=== PATIENT | male | born 1940 | race Caucasian/White ===

== ENCOUNTER 2020-01-01 15:26 | Outpatient (CLI) | payer MEDICARE, SELFPAY ==
--- NOTE | 2020-01-01 | XR_ITS ---
WS: [id number] LEFT ANKLE: 2 VIEW(S) TECHNIQUE: AP and lateral. HISTORY: LEFT ANKLE PAIN COMPARISON: None available. Normal anatomic alignment with no fracture or dislocation. Well-corticated osseous densities at the medial malleolus from an old injury. No osteochondral lesion s. Small calcaneal spur. Enthesopathy at the Achilles tendon attachment. Vascular calcifications in the posterior and anterior tibial arteries. No soft tissue abnormality. XR/XR ankle LT 2V [id number] IMPRESSION: 1. Well-corticated osseous densities at the medial malleolus from old injury. 2. No acute fracture. 3. Small calcaneal spur. 4. Peripheral arterial calcifications.
== END 2020-01-01 15:27 | disposition home or self-care (01) ==
LOC: RADOUTREAD 01-02 09:47
PROVIDERS: Family Provider Internal Medicine; PCP Internal Medicine; Visit Provider Physician Assistant
DX: Z76.89 Persons encountering health services in other specified circumstances (principal)

== ENCOUNTER 2021-02-08 12:32 | Inpatient (IN) | payer MEDICARE, SELFPAY ==
[2021-02-08] VITALS (65 sets, daily range): BP systolic 73–142; BP diastolic 40–96; PULSE 62–110; RESP 18–49; TEMP 36.4–38.6; O2SAT 87–99
--- NOTE | 2021-02-08 12:58 | CT_ITS ---
WS: [id number] CT scan of the head, 02/08/2021 Clinical Data: confusion Comparison: CT head, 01/29/2011. DLP: 981.[address] scans at [facility] use at least one of these dose optimization techniques: automat ed exposure control; mA and/or kV adjustment per patient size (includes targeted exams where dose is matched to clinical indication); or iterative reconstruction. Findings: The ventricular system is mildly dilated without shift. No recent infarct or hemorrhage is seen. Smal l old lacunar infarcts are seen. There are no abnormal intracerebral masses. The cerebellum and brain stem are not remarkable. Bony windows of the skull and skull base show no fractures or erosions. The mastoid air cells, commercial internship al auditory canals, sella turcica, intraorbital contents, and paranasal sinuses are unremarkable. CT/CT head wo con* [id number] Impression: Mild cerebral atrophy and lacunar infarcts.
--- NOTE | 2021-02-08 12:58 | XR_ITS ---
WS: [id number] Portable AP upright chest, 02/08/2021 Clinical Data: dyspnea Comparison: PA and lateral chest, 09/01/2018. Findings: No nodules, masses or effusions are seen. The heart is enlarged. The pulmonary vascularity is not increased. No pneumonia or pneumothorax is seen. The aortic arch is minimally tortuous. Monito r leads are on the chest wall. XR/XR chest 1V portable [id number] Impression: Atherosclerosis and cardiomegaly.
--- NOTE | 2021-02-08 13:07 | ECG_ITS ---
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1940 Requested By: Can Dixon Order Number: [id number] Reva MD: JAVIER OSEI Measurements Intervals [place] Rate: 61 P: 19 WI: 219 QRS: -31 QRSD: 127 T: 6 QT: 461 QTc: 467 Interpretive Statements SINUS RHYTHM WITH FIRST DEGREE AV BLOCK WITH OCCASIONAL VENTRICULAR PREMATURE COMPLEXES LEFT AXIS DEVIATION [QRS AXIS < -30] POSSIBLE ANTERIOR MYOCARDIAL INFARCTION , PROBABLY OLD [30 ms Q WAVE IN V3/V4, OR R < 0.2 mV IN V4] Compared to ECG 04/27/2018 08:53:54 First degree AV block now present Left-axis deviation now present Myocardial infarct finding still present Electronically Signed On 02-08-2021 19:23:50 ELECTRO MECHANICAL ASSEMBLER by JAVIER OSEI [id number]
[2021-02-08] MEDS: ondansetron 2 mg/ML SDV 2 mL 4 MG IVP (13:18)
[2021-02-08] MEDS: sodium chloride 0.9% 1,000 ML 999 ML IV ×2 (13:18→16:27)
[2021-02-08 13:39] LABS: Basophils # 0.1 10^3/uL (0.0-0.1); Basophils % 0.9 %; Eosinophils % 0.3 %; Hemoglobin 11.7 g/dL (11.7-16.6); Lymphocytes # 0.4 10^3/uL (0.8-4.8); Lymphocytes % 6.1 %; Mean Corpuscular HGB Conc 33.4 g/dL (30.0-36.0); Mean Corpuscular Hemoglobin 30.9 pg (28.0-34.0); Mean Corpuscular Volume 92.3 fL (80-94); Mean Platelet Volume 10.8 fL (7.4-10.4); Monocytes # 0.1 10^3/uL (0.2-0.9); Monocytes % 1.6 %; Neutrophils # 5.75 10^3/uL (1.8-7.7); Neutrophils % 90.3 %; Nucleated Red Blood Cells % 0 %; Platelet Count 161 10^3/cmm (130-400); Red Blood Count 3.79 10^6/uL (4.1-5.3); Red Cell Distribution Width 13.3 % (12.1-15.1); White Blood Count 6.4 10^3/uL (4.0-10.0)
--- NOTE | 2021-02-08 13:58 | XR_ITS ---
WS: [id number] Right wrist, AP and lateral views, 02/08/2021 Clinical Data: wrist fx Comparison: None. Findings: No fractures or dislocations are seen. The carpal bones are intact. There is no soft tissue swelling. The distal radius and ulna are not remarkable. There are small calcifications in the maria of the vessels. XR/XR wrist RT 2V [id number] Impression: Negative right wrist.
[2021-02-08 14:02] LABS: Lactate (Lactic Acid level) 4.5 mmol/L (0.5-2.2)
[2021-02-08 14:03] LABS: Troponin(5th) Baseline 54 ng/L (0-15)
[2021-02-08 14:13] LABS: Slide Review Slide Review Perform
--- NOTE | 2021-02-08 14:14 | PC.NURSE ---
ok to CT per
[2021-02-08 14:38] LABS: D Dimer 4.65 ug/mIFEU (0-0.59)
--- NOTE | 2021-02-08 15:07 | ECG_ITS ---
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: : 1940 Requested By: Can Dixon Order Number: [id number] Reva MD: JAVIER OSEI Measurements Intervals [place] Rate: 72 P: 37 LA: 235 QRS: -27 QRSD: 124 T: 19 QT: 429 QTc: 470 Interpretive Statements SINUS RHYTHM WITH FIRST DEGREE AV BLOCK WITH FREQUENT VENTRICULAR PREMATURE COMPLEXES ANTEROSEPTAL MYOCARDIAL INFARCTION , PROBABLY OLD [40+ ms Q WAVE IN V1-V4] Compared to ECG 02/08/2021 13:17:18 Left-axis deviation no longer present Myocardial infarct finding still present Electronically Signed On 02-08-2021 19:25:57 ROCK DUSTER by JAVIER OSEI [email or web address] regional health centerArcos Technologiesuniversity [email or web address] [facility].[employer]/store/[id number]
[2021-02-08 15:08] LABS: Alanine Aminotransferase 20 U/L (0-41); Albumin Level 3.2 g/dL (3.5-5.2); Alkaline Phosphatase 78 IU/L (40-130); Anion Gap 21.4 (5-19); Aspartate Amino Transferase 32 U/L (0-40); Blood Urea Nitrogen 55 mg/dL (8-23); Calcium 7.4 mg/dL (8.5-10.5); Carbon Dioxide 18 mmol/L (22-29); Chloride 93 mmol/L (98-107); Creatine Phosphokinase 462 U/L (39-308); Globulin 2.6 g/dL (1.3-4.6); Glucose 225 mg/dL (65-115); NT Pro B Type Natriuretic Pept 3988 pg/mL (0-450); Osmolality Calculated 288 mOsm/kg (285-295); Potassium 4.4 mmol/L (3.5-5.1); Sodium 128 mmol/L (136-145); Total Protein 5.8 g/dL (6.6-8.7)
--- NOTE | 2021-02-08 15:11 | CT_ITS ---
WS: [id number] CT CHEST, ABDOMEN, AND PELVIS TECHNIQUE: Noncontrast CT of the chest, abdomen, and pelvis with coronal and sagittal reformatted amy ges. CLINICAL INFORMATION: cause of sepsis? h/o n/v/d COMPARISON: None. DLP: 1762.[address] scans at [facility] use at least one of these dose optimization techniques: automat ed exposure control; mA and/or kV adjustment per patient size (includes targeted exams where dose is matched to clinical indication); or iterative reconstruction. CT CHEST: Moderate chronic emphysematous changes. No acute pulmonary infiltrates. Subsegmental atelectasis in t he lung bases. No focal consolidation pleural fluid. A few tiny subcentimeter noncalcified nodules ar e unchanged. Trace pleural thickening/pleural fluid. Aortic calcification. No mediastinal or hilar ly mphadenopathy. No axillary lymphadenopathy. Small esophageal hiatal hernia. CT ABDOMEN AND PELVIS: Noncontrast liver is normal. Normal noncontrast gallbladder. Splenic granulomas. Fatty atrophy of the pancreas. Small esophageal hiatal hernia. Adrenal glands are normal. Bilateral perinephric edema can be seen with renal insufficiency. No hydronephrosis. No obstructing renal or ureteral calculi. Enlarged prostate measuring 5.2 CM. Sigmoid diverticulosis. No evidence of acute diverticulitis. No e vidence of high-grade small or large bowel obstruction. Aortic calcification. Normal caliber abdomina l aorta. Tiny fat-containing umbilical hernia. Mild spondylitic changes thoracic and lumbar spine. CT/CT chest abd pel wo con IMPRESSION: 1. No acute pulmonary infiltrates. Lungs are well aerated. Subsegmental atelec tasis in the lung bases. 2. No free fluid in the abdomen or pelvis. 3. Perinephric edema can be seen with renal insufficiency. 4. No free fluid or fluid collections in the abdomen or pelvis. 5. Sigmoid diverticulosis. No evidence of acute diverticulitis. 6. No acute findings in the chest abdomen or pelvis.
[2021-02-08] MEDS: levofloxacin-dextrose 5 % 750 MG/150 ML PREMIX 100 MG IV (15:13)
--- NOTE | 2021-02-08 15:41 | PC.NURSE ---
Dr. Bay here to see pt
--- NOTE | 2021-02-08 15:45 | PC.NURSE ---
back from CT
[2021-02-08 16:10] LABS: Troponin 5 2HR 48.95 ng/L (0-15)
[2021-02-08 16:11] LABS: Troponin 5 2HR Delta -5.05 ABS# (0-10)
[2021-02-08 16:23] LABS: SARS Covid-2 Antigen Negative (Negative)
--- NOTE | 2021-02-08 16:44 | W.ED.GENADLT ---
HPI - General Adult General: Chief complaint: General Medical Stated complaint: WEAK/SENT BY PCP Time Seen by Provider: 02/08/21 12:53 History of Present Illness: HPI narrative: The patient complains of nausea vomiting and diarrhea for the past 2 days. He says he has felt dehydrated and weak. He went to see his doctor today who recorded an exceptionally low blood pressure and sent him to the ED. Also yesterday in the past 2 days he fell at home and injured his right wrist. He was placed in a splint by his primary care doctor. On arrival blood pressure is 87/43 with a pulse of 64. He denies fevers or abdominal pain. He has a past medical history of A. fib, diabetes, CHF Severity: severe Associated symptoms: Reports nausea and vomiting; Deny chest pain, confusion, dyspnea, headache(s), rash or palpitations Review of Systems General: Reports: 10 or more systems reviewed and unremarkable except in HPI and below Const: Denies: fatigue Eyes: Denies: change in vision, blurry vision or eye redness ENMT: Denies: throat pain, swelling of lips/tongue, ear or mastoid pain or nasal congestion Card: Denies: chest pain, palpitations, irregular heart rhythm, edema, dyspnea on exertion or orthopnea Resp: Denies: dyspnea, productive cough or non-productive cough GI: Reports: nausea and vomiting : Denies: flank pain, urinary frequency or urinary urgency Musc: Denies: neck pain, back pain, extremity pain, joint pain, joint redness, limited range of motion or muscle weakness Skin/Breast: Denies: rash, pruritus, erythema, skin pain or skin tenderness Neuro: Denies: headache(s), numbness in extremities, weakness in extremities, sensory changes, difficulty walking, dizziness, confusion or Slurred speech present Psych: Denies: anxiety or depression Endo: Denies: polyuria All/Imm: Denies: urticaria, throat swelling or tongue swelling PFSH ED PFSH: Medical History (Updated 02/08/21 @ 16:52 by Can Dixon MD) Anticoagulation adequate with anticoagulant therapy Xarelto Atrial fibrillation CHF (congestive heart failure) Diabetes 1.5, managed as type 2 Dyslipidemia HTN (hypertension) Family History Father Diabetes Social History (Reviewed 08/28/20 @ 12:47 by BRYN Cristina Smoking and tobacco status: former smoker Household members: spouse Marital status: service: No Current occupational status: retired Physical Exam Const: COMMON NORMALS: average body habitus, patient oriented x3, alert and well nourished GENERAL APPEARANCE: cooperative, comfortable, well kempt, well developed, in distress, anxious and ill appearing ORIENTATION/CONSCIOUSNESS: Yes awake, Yes oriented to person, Yes oriented to place and Yes oriented to time OTHER: Mild confusion present. Hypotension HENMT: COMMON NORMALS: normocephalic, external ears normal and Normal external nose present HEAD & SCALP: normal to inspection and normocephalic NOSE: Normal external nose present EXTERNAL EAR: Yes external ears normal MOUTH: Normal oral and palatal mucosa present THROAT: posterior oropharynx normal Eye: COMMON NORMALS: Equal, round and reactive pupils present and EOMs intact bilaterally GENERAL EYE: appearance normal, both eyes and all related structures PUPIL: Yes Equal, round and reactive pupils present Neck/C-Spine: COMMON NORMALS: full ROM, no lymphadenopathy, no meningeal signs and no JVD GENERAL: Yes normal visual inspection Lymph: LYMPHATIC: no lymphadenopathy noted Chest: COMMONS NORMALS: normal inspection of the chest and normal palpation of entire chest wall Resp: COMMON NORMALS: normal respiratory effort, No retractions, No use of accessory muscles, clear to auscultation bilaterally and percussion normal EFFORT & INSPECTION: Yes able to speak in complete sentences AUSCULTATION: clear to auscultation bilaterally PERCUSSION: percussion normal Cardio: COMMON NORMALS: no JVD, regular rate, regular rhythm, S1 normal heart sound present, S2 normal heart sound present and Peripheral pulses 2+ throughout RATE: regular rate RHYTHM: regular rhythm HEART SOUNDS: S1 normal heart sound present and S2 normal heart sound present PERIPHERAL PULSES: Peripheral pulses 2+ throughout GI: COMMON NORMALS: Normal to inspection, nondistended, normoactive bowel sounds present, Soft to palpation, non-tender and no masses INSPECTION: Yes normal to inspection PALPATION: Yes Soft to palpation : COMMON NORMALS: Yes no CVA tenderness BLADDER/KIDNEY EXAM: Yes no CVA tenderness Back/Pelvis: COMMON NORMALS: no CVA tenderness, thoracic and lumbar spine normal to inspection, no thoracic nor lumbar tenderness and thoraco-lumbar ROM normal Extremity: COMMON NORMALS: normal to inspection, full ROM, capillary refill normal, no joint enlargement and no pedal edema GENERAL: Yes normal exam except as noted Neuro: COMMON NORMALS: patient oriented x3, CN's II-XII intact bilaterally, moves all extremities, no focal motor deficits, no sensory deficits noted and gait normal SENSORIUM/ORIENTATION: Yes alert, Yes oriented to person, Yes oriented to place and Yes oriented to time MENINGEAL SIGNS: Yes no meningeal signs Psych: COMMON NORMALS: mental status grossly normal, Normal thought process present, cooperative, normal affect and speech normal APPEARANCE: Yes well kempt ATTITUDE: Yes calm SPEECH: Yes normal speech THOUGHT PROCESS: Normal thought process present Skin: COMMON NORMALS: no rashes or lesions noted GENERAL SKIN EXAM: no rashes or lesions noted Course Vital Signs: Vital signs: Vital Signs Temperature 97.6 F 02/08/21 12:49 Pulse Rate 74 02/08/21 16:29 Respiratory Rate 18 02/08/21 16:29 Blood Pressure 105/47 02/08/21 16:29 Pulse Oximetry 98 02/08/21 16:29 MDM - General Adult MDM Narrative: Medical decision making narrative: Patient came to the ED severely hypotensive and in acute renal failure. Likely from the severe nausea and vomiting he said the past couple days. Initial lactic acid 4.5. He was given 2 L of fluid and started on Levophed with some improvement of his blood pressure. Discussed with Dr. Bay who accepts to the ICU. He was also given Primaxin IV for antibiotic coverage. CT abdomen pelvis shows no acute abnormalities he is stable for admission Lab Data: Labs: Lab Results 02/08/21 02/08/21 02/08/21 Range/Units 13:32 13:32 13:32 WBC 6.4 (4.0-10.0) 10^3/ uL RBC 3.79 L (4.1-5.3) 10^6/u L Hgb 11.7 (11.7-16.6) g/dL Hct 35.0 L (42.0-52.0) % MCV 92.3 (80-94) fL MCH 30.9 (28.0-34.0) pg MCHC 33.4 (30.0-36.0) g/dL RDW 13.3 (12.1-15.1) % Plt Count 161 (130-400) 10^3/c mm MPV 10.8 H (7.4-10.4) fL Neut % (Auto) 90.3 % Lymph % (Auto) 6.1 % [place] % (Auto) 1.6 % Eos % (Auto) 0.3 % Baso % (Auto) 0.9 % Neut # (Auto) 5.75 (1.8-7.7) 10^3/u L Lymph # (Auto) 0.4 L (0.8-4.8) 10^3/u L [place] # (Auto) 0.1 L (0.2-0.9) 10^3/u L Eos # (Auto) 0.0 (0.0-0.8) 10^3/u L Baso # (Auto) 0.1 (0.0-0.1) 10^3/u L Nucleated RBC % (a uto) 0 % Nucleated RBCs # 0.0 /100WBC D-Dimer (0-0.59) ug/mIFE U Sodium 128 L (136-145) mmol/L Potassium 4.4 (3.5-5.1) mmol/L Chloride 93 L (98-107) mmol/L Carbon Dioxide 18 L (22-29) mmol/L Anion Gap 21.4 H (5-19) BUN 55 H (8-23) mg/dL Creatinine 3.4 H (0.7-1.2) mg/dL GFR Calculation Not Reportable Glucose 225 H (65-115) mg/dL Calculated Osmolal ity 288 (285-295) mOsm/k g Lactate 4.5 H* (0.5-2.2) mmol/L Calcium 7.4 L (8.5-10.5) mg/dL Total Bilirubin 1.0 (0.15-1.2) mg/dL AST 32 (0-40) U/L ALT 20 (0-41) U/L Alkaline Phosphata se 78 (40-130) IU/L Creatine Kinase 462 H* (39-308) U/L Troponin T Baselin e (0-15) ng/L Troponin T 120 Min [place] (0-15) ng/L Delta Troponin T (0-10) ABS# NT-Pro-B Natriuret Pep 3988 H (0-450) pg/mL Total Protein 5.8 L (6.6-8.7) g/dL Albumin 3.2 L (3.5-5.2) g/dL Globulin 2.6 (1.3-4.6) g/dL SARS-CoV-2 Ag (Rap id) (Negative) 02/08/21 02/08/21 02/08/21 Range/Units 13:32 14:08 15:18 WBC (4.0-10.0) 10^3/ uL RBC (4.1-5.3) 10^6/u L Hgb (11.7-16.6) g/dL Hct (42.0-52.0) % MCV (80-94) fL MCH (28.0-34.0) pg MCHC (30.0-36.0) g/dL RDW (12.1-15.1) % Plt Count (130-400) 10^3/c mm MPV (7.4-10.4) fL Neut % (Auto) % Lymph % (Auto) % [place] % (Auto) % Eos % (Auto) % Baso % (Auto) % Neut # (Auto) (1.8-7.7) 10^3/u L Lymph # (Auto) (0.8-4.8) 10^3/u L [place] # (Auto) (0.2-0.9) 10^3/u L Eos # (Auto) (0.0-0.8) 10^3/u L Baso # (Auto) (0.0-0.1) 10^3/u L Nucleated RBC % (a uto) % Nucleated RBCs # /100WBC D-Dimer 4.65 H (0-0.59) ug/mIFE U Sodium (136-145) mmol/L Potassium (3.5-5.1) mmol/L Chloride (98-107) mmol/L Carbon Dioxide (22-29) mmol/L Anion Gap (5-19) BUN (8-23) mg/dL Creatinine (0.7-1.2) mg/dL GFR Calculation Glucose (65-115) mg/dL Calculated Osmolal ity (285-295) mOsm/k g Lactate (0.5-2.2) mmol/L Calcium (8.5-10.5) mg/dL Total Bilirubin (0.15-1.2) mg/dL AST (0-40) U/L ALT (0-41) U/L Alkaline Phosphata se (40-130) IU/L Creatine Kinase (39-308) U/L Troponin T Baselin e 54 H (0-15) ng/L Troponin T 120 Min [place] 48.95 H (0-15) ng/L Delta Troponin T -5.05 L (0-10) ABS# NT-Pro-B Natriuret Pep (0-450) pg/mL Total Protein (6.6-8.7) g/dL Albumin (3.5-5.2) g/dL Globulin (1.3-4.6) g/dL SARS-CoV-2 Ag (Rap id) (Negative) 02/08/21 Range/Units 15:50 WBC (4.0-10.0) 10^3/ uL RBC (4.1-5.3) 10^6/u L Hgb (11.7-16.6) g/dL Hct (42.0-52.0) % MCV (80-94) fL MCH (28.0-34.0) pg MCHC (30.0-36.0) g/dL RDW (12.1-15.1) % Plt Count (130-400) 10^3/c mm MPV (7.4-10.4) fL Neut % (Auto) % Lymph % (Auto) % [place] % (Auto) % Eos % (Auto) % Baso % (Auto) % Neut # (Auto) (1.8-7.7) 10^3/u L Lymph # (Auto) (0.8-4.8) 10^3/u L [place] # (Auto) (0.2-0.9) 10^3/u L Eos # (Auto) (0.0-0.8) 10^3/u L Baso # (Auto) (0.0-0.1) 10^3/u L Nucleated RBC % (a uto) % Nucleated RBCs # /100WBC D-Dimer (0-0.59) ug/mIFE U Sodium (136-145) mmol/L Potassium (3.5-5.1) mmol/L Chloride (98-107) mmol/L Carbon Dioxide (22-29) mmol/L Anion Gap (5-19) BUN (8-23) mg/dL Creatinine (0.7-1.2) mg/dL GFR Calculation Glucose (65-115) mg/dL Calculated Osmolal ity (285-295) mOsm/k g Lactate (0.5-2.2) mmol/L Calcium (8.5-10.5) mg/dL Total Bilirubin (0.15-1.2) mg/dL AST (0-40) U/L ALT (0-41) U/L Alkaline Phosphata se (40-130) IU/L Creatine Kinase (39-308) U/L Troponin T Baselin e (0-15) ng/L Troponin T 120 Min [place] (0-15) ng/L Delta Troponin T (0-10) ABS# NT-Pro-B Natriuret Pep (0-450) pg/mL Total Protein (6.6-8.7) g/dL Albumin (3.5-5.2) g/dL Globulin (1.3-4.6) g/dL SARS-CoV-2 Ag (Rap id) Negative (Negative) Discharge Plan Discharge Patient Disposition: Admitted As Inpatient Admit Provider: Claudia Bay Clinical Impression: Septic shock Condition: Stable Coding Level of Care Code ED Import Customs 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
--- NOTE | 2021-02-08 18:10 | PM.HP ---
Providers/Chief Complaint Admitting Physician: Claudia Bay MD Primary Care Provider: Avtar Ngo DO Chief Complaint: WEAK/SENT BY PCP History of Present Illness Sheng Bernstein is a 80 year old male with PMH as outlined below who developed nausea, vomiting and diarrhea on Thursday (today is Thursday), went to PCP on , tested negative for COVID, given prescription for zofran which improved his abdominal symptoms , however he started to feel dizzy at home. Dizziness resulted fall at home on and patient developed pain in his wrists for which he returned to PCP. No fractures were noted, however he was sent to ER after being noted to have low BP with SBP 80s. In [facility] ER again noted to have low BP, given 2 L IVF and started on levophed. No fever. No current abdominal pain. Troponin series without significant delta. CT chest/abdomen/pelvis without contrast does not show gross source of infection. No consolidation. No intraabdominal process acutely. Blood cx taken and pending, received imipenem in [facility] ER. Diagnostics notable for elevated lactate 4.5, YASMEEN with cr 3.4, Na 128. No fractures on wrist X rays. Denies chest pain, dyspnea, palpitations Review of Systems General: Reports: 10 or more systems reviewed and unremarkable except in HPI and below Const: Denies: fever(s), chills or body aches Eyes: Denies: change in vision, blurry vision or photophobia ENMT: Reports: hoarseness; Denies: throat pain, enlarged tonsils, odynophagia or nasal congestion Card: Denies: chest pain, palpitations, irregular heart rhythm, edema, swelling of feet/ankles, lightheadedness, pre-syncope, dyspnea on exertion or orthopnea Resp: Denies: dyspnea, productive cough, non-productive cough, wheezing, stridor, pain on inspiration, change in phlegm color, hemoptysis or chest congestion GI: Denies: abdominal pain, nausea, vomiting, hematemesis, coffee ground emesis, dysphagia, heartburn, diarrhea, constipation, GI cramping, change in stool character, hematochezia or melena : Denies: flank pain, dysuria, urinary frequency, urinary urgency, urinary hesitancy or hematuria Musc: Denies: neck pain, back pain, extremity pain, joint swelling, joint warmth or deformity Neuro: Denies: headache(s), numbness in extremities, weakness in extremities, sensory changes, difficulty walking, frequent falls, dizziness, vertigo, behavioral changes, Slurred speech present or seizure-like activity Psych: Denies: anxiety, depression, suicidal ideation or homicidal ideation Endo: Denies: polyuria, polydipsia, tired all the time, cold intolerance or hot flashes Cisco/Lymph: Denies: easy bruising or easy bleeding Medications/Allergies Home Medications Medication Instructions Recorded Confirmed Last Taken Type amlodipine 10 mg tablet 10 mg PO DAILY@72902/08/20 02/08/21 02/08/21 History atenolol 100 mg-chlorthalidone 25 See Rx Instructions PO DAILY 02/08/20 02/08/21 02/08/21 History mg tablet furosemide 40 mg tablet 40 mg PO DAILY@72902/08/20 02/08/21 02/08/21 History levothyroxine 175 mcg capsule 175 mcg PO DAILY@72902/08/20 02/08/21 02/08/21 History losartan 50 mg tablet 50 mg PO DAILY@0702/08/20 02/08/21 02/08/21 History metformin 1,000 mg tablet 1,000 mg PO BID@0730,2100 02/08/20 02/08/21 02/08/21 History niacin 250 mg tablet,extended 250 mg PO DAILY@72902/08/20 02/08/21 02/08/21 History release nitroglycerin 0.4 mg sublingual 0.4 mg SUBLINGUAL Q5M PRN 02/08/20 02/08/21 02/08/21 History tablet pantoprazole 20 mg tablet,delayed 20 mg PO DAILY@72902/08/20 02/08/21 02/08/21 History release propafenone 150 mg tablet 150 mg PO TID@0730,1230,1930 02/08/20 02/08/21 02/08/21 History terazosin 5 mg capsule 5 mg PO DAILY@72902/08/20 02/08/21 02/08/21 History diphenhydramine-acetaminophen 1 tab PO Q4H PRN 02/08/21 02/08/21 02/07/21 History [Tylenol PM Extra Strength] ondansetron 4 mg PO TID PRN 02/08/21 02/08/21 02/08/21 History potassium chloride 10 meq PO DAILY@0702/08/21 02/08/21 02/08/21 History rivaroxaban [Xarelto] 20 mg PO DAILY@0730 02/08/21 02/08/21 02/08/21 History Allergies Allergy/AdvReac Type Severity Reaction Status Date / Time Penicillins Allergy Severe ADR/ALGY-Pa Verified 02/08/21 12:56 lpitations PFSH Acute PFSH: Medical History (Updated 02/09/21 @ 05:44 by Claudia Bay MD) Anticoagulation adequate with anticoagulant therapy Xarelto Atrial fibrillation CHF (congestive heart failure) Diabetes 1.5, managed as type 2 Dyslipidemia HTN (hypertension) Family History Father Diabetes Social History Smoking and tobacco status: former smoker Household members: spouse Marital status: service: No Current occupational status: retired Vitals/I&O/Wt Last Vital Signs Temp 97.6 F 02/08/21 12:49 Pulse 78 02/08/21 17:50 Resp 31 H 02/08/21 17:50 BP 87/53 02/08/21 17:50 Pulse Ox 90 02/08/21 17:50 02/08/21 02/08/21 02/08/21 06:59 14:59 22:59 Intake Total 1000 / 1000 1345.774 / 2345.774 Balance 1000 / 1000 1345.774 / 2345.774 Physical Exam Narrative: EXAM NARRATIVE: GEN: Awake, alert and oriented, no acute distress CVS: S1S2 N RS: CTA B/L all areas Abd: Soft, nt/nd , bs+ PILLING MACHINE OPERATOR: no focal neuro deficits Data : 02/09/21 02:28 02/09/21 02:28 Micro: Microbiology 02/08/21 14:08 Blood Culture - Preliminary Blood SPECIMEN COLLECTED 02/08/21 14:06 Blood Culture - Preliminary Blood SPECIMEN COLLECTED A&P Assessment and plan (1) Hypotension: Admit to ICU Hypotension, cause unclear at this time Given recent GI symptoms, needs further sepsis evaluation, currently no fever, no leucytosis CT CAP without overt source of infection , saturating 95% on RA Check procalcitonin, blood cx pending Received imipenem x 1 in the ER, For now will place on Ceftriaxone while undergoing evaluation Alternate possibilities include cardiac causes, however patient denies any chest pain, dyspnea or palpitations , no acute ST-T wave changes on EKG, tropinin series without significant delta Less likely PE as has been on Xarelto , cannot get CTA due to YASMEEN Check echocardiogram Hold all antihypertensives Status: Acute Qualifiers: Hypotension type: unspecified hypotension type Qualified Code(s): I95.9 - Hypotension, unspecified (2) YASMEEN (acute kidney injury): Place Cabezas to detremine accurate I/O may be 2/2 volume loss from recent nausea, diarrhea clear diet , advance as tolerated IVF bolus 2L given, continue at 100cc/hr CT abdomen without obstcrution, hydronephrosis Status: Acute (3) CHF (congestive heart failure): currently appears compensated , careful monitoring with IVF Status: Acute Qualifiers: Heart failure type: unspecified Heart failure chronicity: unspecified Qualified Code(s): I50.9 - Heart failure, unspecified (4) Atrial fibrillation: rate controlled holding atenolol due to low BP continue propafenone Status: Acute Qualifiers: Atrial fibrillation type: longstanding persistent Qualified Code(s): I48.11 - Longstanding persistent atrial fibrillation (5) Diabetes 1.5, managed as type 2: mild insulin sliding scale Status: Acute Additional A&P Information DVT ppx: Xarelto Attestations Medical Necessity Statement*: >2midnight anticipated for pressor support, hypotension, possible sepsis under evaluation Coding Level of Care Code Acute Rolling Down Machine Operator for [facility] Fwd Diagnoses Hypotension I95.9 Hypotension type: unspecified hypotension type YASMEEN (acute kidney injury) N17.9 CHF (congestive heart failure) I50.9 Heart failure type: unspecified Heart failure chronicity: unspecified Atrial fibrillation I48.11 Atrial fibrillation type: longstanding persistent Diabetes 1.5, managed as type 2 E13.9
[2021-02-08] MEDS: sodium chloride 0.9% 1,000 ML 75 ML IV (18:43)
[2021-02-08] MEDS: norepinephrine 8 MG in dextrose 5 % 500 ML 68.6 MG IV (18:45)
--- NOTE | 2021-02-08 19:07 | ECG_ITS ---
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 Measurements Intervals [place] Rate: 96 P: 8 AR: 201 QRS: -57 QRSD: 121 T: 14 QT: 343 QTc: 435 Interpretive Statements SINUS RHYTHM WITH FREQUENT VENTRICULAR PREMATURE COMPLEXES IN A BIGEMINAL PATTERN LEFT ANTERIOR FASCICULAR BLOCK [QRS AXIS <= -45, QR IN I, RS IN II] POSSIBLE ANTERIOR MYOCARDIAL INFARCTION [30 ms Q WAVE IN V3/V4, OR R < 0.2 mV IN V4], OF INDETERMINATE AGE Compared to ECG 02/08/2021 15:13:41 Ventricular premature complex(es) now present Left anterior fascicular block now present First degree AV block no longer present Myocardial infarct finding still present Electronically Signed On 02-09-2021 19:39:59 TRAVELING PLANT OPERATOR by Amy Greenwood M.D. [id number]
[2021-02-08 19:11] LABS: Protein Urine Neg (Negative); Urine Appearance Hazy (CLEAR); Urine Color Yellow (Yellow); pH Urine 5 (5-7)
[2021-02-08 19:12] LABS: Add Urine Microscopic? YES; Bilirubin Urine 1+ (Negative); Blood Urine 2+ (Negative); Glucose Urine UA Norm (Normal); Ketones Urine Negative (Negative); Leukocyte Esterase Urine Negative (Negative); Nitrate Urine Negative (Negative); Urobilinogen Urine 1 mg/dL (Negative)
[2021-02-08] MEDS: propafenone 150 mg Tablet PO (19:24)
[2021-02-08 19:35] LABS: Glucose Point of Care 145 mg/dL (70-110)
[2021-02-08 19:48] LABS: Add Urine Culture? Yes; Bacteria Urine 3+ /hpf; RBC Urine 0-4 /hpf (0-2); Squamous Epithelial Cell Urine 0-4 /hpf (0-5)
[2021-02-08 20:18] LABS: Troponin 5 6HR 51.76 ng/L (0-15)
[2021-02-08 20:21] LABS: Troponin 5 6HR Delta -2.24 ng/L (0-12)
[2021-02-08 20:28] LABS: Procalcitonin 7.06 ng/mL (0-0.5); Thyroid Stimulating Hormone 0.91 uIU/mL (0.27-4.20)
[2021-02-08] MEDS: morphine 4 mg/mL SDV 1 mL 1 MG IVP (21:14)
[2021-02-08] MEDS: LORazepam 2 mg/mL INJ 1 mL 0.5 MG IVP ×2 (21:16→22:30)
[2021-02-08] MEDS: ipratropium-albuterol 3 mL Neb INHALATION (21:19)
--- NOTE | 2021-02-08 21:58 | PC.NURSE ---
New Orders: Patient exhibits with shortness of breath, inspiratory and expiratory wheezes, reports pain in wrist from previous fall, negative CT for wrist. Patient anxious. Called Dr. Sherwood, received orders for Duoneb q4 hours scheduled, IVP morphine 1 mg every 4 hours PRN for pain, ativan 0.5mg IVP every 6 hours PRN for anxiety, and to discontinue IV fluids, Continue care.
--- NOTE | 2021-02-08 22:18 | XRR_ITS ---
PROCEDURE INFORMATION: Exam: XR Chest Exam date and time: 02/08/2021 10:20 PM Age: 80 years old Clinical indication: Shortness of breath; Additional info: SOB TECHNIQUE: Imaging protocol: XR of the chest Views: 1 view. COMPARISON: CT chest abd pel wo con 02/08/2021 3:50 PM FINDINGS: Lungs: Still no pulmonary edema or consolidation. Slight atelectasis in the lung bases still suspected. Shallow lung volumes. Pleural spaces: No pneumothorax or apparent pleural fluid. Heart/Mediastinum: Cardiomegaly again evident despite the marked lordosis. Bones/joints: No suggestion of acute bony disease. XR/XR chest 1V portable [id number] IMPRESSION: No apparent acute disease. Continued cardiomegaly.
[2021-02-08] MEDS: cefTRIAXone 1,000 MG in sodium chloride 0.9% (plus) 50 ML 100 MG IV (22:22)
[2021-02-08 22:34] LABS: ABG PCO2 28.3 mmHg (35-45); ABG PH Result 7.36 (7.35-7.45); Alveolar-Arterial Oxygen Gradi 5.7 mmHg (5-10); Arterial Blood Gas Hematocrit 39.2 % (42-52); Base Excess ABG -8.3 mmol/L (-2.0-2.0); Blood Gas Operator Identificat JB; Blood Gas Sample Site Brachial, left; Blood Gas Sample Type Arterial; Carboxyhemoglobin 0.5 %THgb (0.4-20.1); HCO3 ABG 15.8 mmol/L (22-26); HGB O2 Sat 93.7 % (95-100); Ionized Calcium Level - ABG 1.1 mmol/L (1.1-1.4); Methemoglobin 0.5 % (0.4-1.5); Oxygen Device NC; Oxygen Saturation ABG 94.6; PO2 ABG 71.1 mmHg (80.0-100.0); Potassium Level - ABG 3.9 mmol/L (3.5-5.0); Total Hemoglobin 12.8 g/dL (14-18)
[2021-02-08] MEDS: FUROsemide 10 mg/mL SDV 2mL 20 MG IVP (22:40)
--- NOTE | 2021-02-08 22:51 | PC.PHAR ---
Pharmacokinetic dosing service Date: 02/08/21 Time: 2299 Objective: Patient: Sheng Bernstein Floor: ICU-4 Age: 80 yo Serum creatinine: 3.4 mg/dL Height: 69.0 Inches Weight (kg): 92 Diagnosis: Relevant medical/social history: Cultures and sensitivities: Other labs: Assessment: IBW (kg): 70.70 Dosing wt(kg): 92 Estimated Creatinine clearance (ml/min): 17.9 CRCL method: Cockcroft and Gault using ibw(default). Drug selected: Vancomycin Loading dose (mg): 0 Vd (liters): 82.8 (factor used: 0.9 L/kg) Shaq (hr-1): 0.019 Half life (hrs): 36.48 Recommended dose: 1500 mg Interval: 48 hrs Infusion time (hrs): 1.5 Predicted peak (mcg/mL): 29.9 Predicted trough (mcg/mL): 12.36 Total body weight is being used for vancomycin dosing. Renal function is stable [ ] /unstable [ ] Recommendations: Give Vancomycin 1500 mg q 48 hrs with an expected Cpeak of 29.9 mcg/ml and an expected Ctrough of 12.36 mcg/ml Renal dosing of other antibiotics (review renal dosing of other medications and list guidelines here): Thank you for the consult, will continue to follow. Signature: Mayra Starks [facility]
[2021-02-08] MEDS: vancomycin 1,500 MG/300 ML PIGGYBACK 200 MG IV (22:54)
--- NOTE | 2021-02-08 22:57 | PC.PHAR ---
Renal Dosing of Primaxin 500mg q6h changed to 250 mg q12h due to patient CRCL of 17.9
[2021-02-08] MEDS: acetaminophen 325 mg Tablet 650 MG PO (23:36)
[2021-02-08 23:55] LABS: Influenza A by IFA Negative (Negative); Influenza B by IFA Negative (Negative)
[2021-02-09] VITALS (115 sets, daily range): BP systolic 63–144; BP diastolic 39–80; PULSE 76–109; RESP 14–49; TEMP 34.7–37.6; O2SAT 79–98
--- NOTE | 2021-02-09 00:30 | ECG_ITS ---
[facility] Test Date: 2021-02-09 Pat Name: Sheng Bernstein Department: Room: ICU04 Gender: Male First Aid Trainer: : 1940 Requested By: Ru Sherwood Order Number: [id number] Reva MD: Amy Greenwood M.D. Measurements Intervals [place] Rate: 92 P: -66 [place]: 139 QRS: -51 QRSD: 115 T: 15 QT: 341 QTc: 423 Interpretive Statements Normal sinus rhythm LOW QRS VOLTAGE IN PRECORDIAL LEADS [QRS DEFLECTION < 1.0 mV IN CHEST LEADS] POSSIBLE ANTERIOR MYOCARDIAL INFARCTION [30 ms Q WAVE IN V3/V4, OR R < 0.2 mV IN V4], PROBABLY OLD INFERIOR MYOCARDIAL INFARCTION [40+ ms Q WAVE AND/OR ST/T ABNORMALITY IN II/aVF], PROBABLY OLD Compared to ECG 02/08/2021 19:54:42 Junctional rhythm now present Low QRS voltage now present Sinus rhythm no longer present Ventricular premature complex(es) no longer present Left anterior fascicular block no longer present Myocardial infarct finding still present Electronically Signed On 02-09-2021 19:36:17 PREPARED FOODS TEAM LEADER by Amy Greenwood M.D. [id number]
[2021-02-09] MEDS: ipratropium-albuterol 3 mL Neb INHALATION ×6 (00:42→19:52)
[2021-02-09] MEDS: FUROsemide 10 mg/mL SDV 4mL 40 MG IVP (00:57)
--- NOTE | 2021-02-09 01:24 | XRR_ITS ---
PROCEDURE INFORMATION: Exam: XR Chest Exam date and time: 02/09/2021 1:25 AM Age: 80 years old Clinical indication: Other vascular access device placement or adjustment; Central line, non-tunnelled; Patient HX: Check for central line and ett placement; Additional info: Et/og tube placement TECHNIQUE: Imaging protocol: XR of the chest Views: 1 view. COMPARISON: CR XR chest 1V portable [id number] 02/08/2021 10:19 PM FINDINGS: Tubes, catheters and devices: Interval appearance of the endotracheal tube with its tip about 5.7 cm above the comfort. Interval appearance of the right IJ catheter with its tip in the right atrium. Lungs: Continued shallow lung volumes. Slight atelectasis in the lung bases still likely. No interval consolidation. Pleural spaces: No suggestion of an interval pneumothorax on this supine image. Still no large pleural effusion. Heart/Mediastinum: Continued cardiomegaly. Bones/joints: No visible acute bony disease. XR/XR chest 1V portable [id number] IMPRESSION: 1. Interval appearance of the adequately-positioned endotracheal tube. Tip of the interval right IJ catheter in the right atrium. 2. No visible pneumothorax on this supine image. 3. No obvious change in the heart and lungs.
[2021-02-09] MEDS: succinylcholine 20 mg/mL SDV 10mL 150 MG IVP (01:36)
[2021-02-09] MEDS: propofol 1,000 MG/100 ML INJ 27.6 MG IV (02:47)
[2021-02-09] MEDS: hydrocortisone 100 mg/2 mL SDV IVP ×2 (03:08→10:52)
--- NOTE | 2021-02-09 03:20 | P.EN_ITS ---
Event Note Event Note: This is a 72-year-old male, needed to the ICU, with with sepsis, septic shock secondary to UTI, with a past medical history of CHF, type 2 diabetes, dyslipidemia, hypertension, A. fib on Xarelto Patient throughout the evening started to develop persistent hypotensive episodes, requiring up or titration of Levophed up to 10 mcg, is becoming persistently short of breath, requiring 5 L nasal cannula, I did give him a trial of Lasix 60 mg, he did not put out a lot of urine, lungs had crackles on exam, he was receiving fluids which I stopped, , his ABG on 5 L showed pH within normal limits, no significant hypercarbia but did show hypoxia, patient looked in mild respiratory distress, belly breathing, he was placed on BiPAP, at this point he is alert awake, answering questions, following commands. In addition I expanded his antibiotic coverage to vancomycin and Primaxin, repeat chest x-ray in my opinion showed fluid overload, however you cannot see the left heart border could be a focal pneumonia, he definitely has a UTI I reexamined patient, he persistently was in mild respiratory distress, respiratory rate up to 40, his mentation started to deteriorate, less alert, less awake, his Levophed was up to 25, with MAP just below 65, and had not responded significantly to the Lasix, but he developed a fever 101.4 Given his significant septic shock, development of increased confusion, increased respiratory distress, I was concerned for septic shock with acute hypoxic respiratory failure, acute renal failure secondary to UTI and pneumonia I discussed the case with Dr. Graves, who was kind enough to intubate patient and placed a central line for access Patient has been placed on Precedex, fentanyl, receiving 25 mg of Levophed, 0.6 of vasopressin, we are adding dopamine, he is receiving broad-spectrum antibiotic therapy, he has received stress dose hydrocortisone Event Notes Attestations Time Spent in Patient Care: Greater than 35 minutes (>than 50% of time spent in counselling and/or direct pt care on unit) . Critical care progress note, time spent over 1 hour
[2021-02-09 03:27] LABS: Lactic Sepsis W/Reflex 3.8 mmol/L (0.5-2.2)
[2021-02-09 03:29] LABS: Troponin T (5th) Once 74 ng/L (0-15)
[2021-02-09 03:34] LABS: Hemoglobin 11.5 g/dL (11.7-16.6); Mean Corpuscular HGB Conc 33.8 g/dL (30.0-36.0); Mean Corpuscular Hemoglobin 30.9 pg (28.0-34.0); Mean Corpuscular Volume 91.4 fL (80-94); Mean Platelet Volume 11.3 fL (7.4-10.4); Platelet Count 141 10^3/cmm (130-400); Red Blood Count 3.72 10^6/uL (4.1-5.3); Red Cell Distribution Width 13.7 % (12.1-15.1); White Blood Count 5.9 10^3/uL (4.0-10.0)
[2021-02-09 03:35] LABS: NT Pro B Type Natriuretic Pept 13043 pg/mL (0-450); Procalcitonin 14.53 ng/mL (0-0.5)
[2021-02-09] MEDS: DOPamine drip 400 MG/250 ML PREMIX 17.3 MG IV ×2 (03:39→08:59)
[2021-02-09 03:46] LABS: Alanine Aminotransferase 22 U/L (0-41); Albumin Level 2.6 g/dL (3.5-5.2); Alkaline Phosphatase 59 IU/L (40-130); Anion Gap 23.1 (5-19); Aspartate Amino Transferase 49 U/L (0-40); Blood Urea Nitrogen 70 mg/dL (8-23); Calcium 6.9 mg/dL (8.5-10.5); Carbon Dioxide 15 mmol/L (22-29); Chloride 94 mmol/L (98-107); Globulin 2.4 g/dL (1.3-4.6); Glucose 117 mg/dL (65-115); Magnesium 1.3 mg/dL (1.7-2.3); Osmolality Calculated 288 mOsm/kg (285-295); Phosphorus 2.6 mg/dL (2.5-4.5); Potassium 4.1 mmol/L (3.5-5.1); Sodium 128 mmol/L (136-145); Total Bilirubin 1.9 mg/dL (0.15-1.2)
[2021-02-09] MEDS: famotidine 20 mg/2 mL INJ IVP ×2 (03:46→15:44)
[2021-02-09] MEDS: dexmedetomidine 400 MCG in sodium chloride 0.9% (100 ml) 100 ML IV (04:04)
[2021-02-09 04:41] LABS: Slide Review Slide Review Perform
[2021-02-09 04:42] LABS: Absolute Eosinophils 0.1 10^3/cmm (0.0-0.7); Absolute Segmented Neutrophil 1.8 10/cmm (1.6-7.1); Band Neutrophils Absolute 2.2 10^3/cmm (0.0-1.2); Eosinophils 3 %; Lymphocytes 7 %; Monocytes Absolute 0.6 10^3/cmm (0.1-0.6); Segmented Neutrophils 30 %; Total Cells Counted 100 (0-100)
[2021-02-09 04:43] LABS: Hypochromasia 1+; Platelet Estimate Decreased (Normal); Polychromasia 1+
[2021-02-09 04:44] LABS: Dohle Bodies Trace
[2021-02-09 04:45] LABS: C Reactive Protein 307.6 mg/L (0.0-4.9)
[2021-02-09 04:59] LABS: Reflex Lactate Order REFLEX LACTIC ORDERD
--- NOTE | 2021-02-09 05:04 | PC.NURSE ---
Change in Condition: Patient's breathing continued to become more labored, and BP continued to decrease, Called Dr. Sherwood and gave updates on patients condition. Dr. Sherwood arrived bedside and assessed patient, gave orders to intubate. Dr. Graves from ED came to floor to intubate patient. Patient intubated at 0137 with size 8 tube 26 at the lip.
[2021-02-09 05:07] LABS: ABG PCO2 33.7 mmHg (35-45); ABG PH Result 7.26 (7.35-7.45); Arterial Blood Gas Hematocrit 42.1 % (42-52); Base Excess ABG -10.9 mmol/L (-2.0-2.0); Blood Gas Operator Identificat JB; Blood Gas Sample Site Brachial, left; Blood Gas Sample Type Arterial; Blood Gas Tidal Volume 0.45; HCO3 ABG 15.1 mmol/L (22-26); Oxygen Device VENT; PO2 ABG 65.3 mmHg (80.0-100.0)
[2021-02-09] MEDS: sodium bicarbonate 8.4% 1 mEq/mL 50mL Syr 100 MEQ IV (05:41)
[2021-02-09] MEDS: norepinephrine 8 MG in dextrose 5 % 500 ML 114.3 MG IV (05:58)
[2021-02-09 07:32] LABS: Glucose Point of Care 230 mg/dL (70-110)
--- NOTE | 2021-02-09 07:46 | XRR_ITS ---
PROCEDURE INFORMATION: Exam: XR Chest Exam date and time: 02/09/2021 8:03 AM Age: 80 years old Clinical indication: Device placement; Ng tube; Additional info: Og tube placement TECHNIQUE: Imaging protocol: XR of the chest Views: 1 view. COMPARISON: CR (CHEST, ) 02/09/2021 2:15 AM FINDINGS: Tubes, catheters and devices: An orogastric tube is present in satisfactory position with the tip projecting in the stomach. The endotracheal tube and central venous catheter present in satisfactory position. Lungs: There is subsegmental atelectasis in the lung bases similar to previous study. Pleural spaces: Unremarkable. No pleural effusion. No pneumothorax. Heart/Mediastinum: The cardiac silhouette is enlarged but unchanged. Bones/joints: Unremarkable. XR/XR chest 1V portable [id number] IMPRESSION: 1. Satisfactory position of the orogastric tube, endotracheal tube and central venous catheter. 2. Stable cardiomegaly and basilar atelectasis.
[2021-02-09] MEDS: magnesium sulfate premix 2 GM/50 ML PIGGYBACK IV (10:23)
[2021-02-09] MEDS: apixaban 5 mg Tablet PO ×2 (10:24→20:29)
[2021-02-09] MEDS: norepinephrine 8 MG in dextrose 5 % 500 ML 76.2 MG IV ×2 (10:58→18:28)
[2021-02-09 11:56] LABS: Glucose Point of Care 271 mg/dL (70-110)
[2021-02-09] MEDS: propafenone 150 mg Tablet PO ×2 (12:57→20:29)
[2021-02-09] MEDS: DOPamine drip 400 MG/250 ML PREMIX 44.9 MG IV (14:20)
--- NOTE | 2021-02-09 16:56 | P.PN_ITS ---
Subjective Subjective: Interval history: Overnight patient acutely worsened. Respiratory failure requiring intubation and MV. In addition started on multiple IV pressers. Right IJ placed Family at bedside Medications: Reviewed: Yes Vitals/I&O/Wt Last Vital Signs Temp 97.0 F L 02/09/21 15:00 Pulse 86 02/09/21 15:35 Resp 16 02/09/21 15:25 BP 113/65 02/09/21 15:00 Pulse Ox 96 02/09/21 15:25 02/09/21 02/09/21 02/09/21 06:59 14:59 22:59 Intake Total 951.830 / 3921.207 987.554 / 987.554 192.130 / 1179.684 Output Total 450 / 450 Balance 501.830 / 3471.207 987.554 / 987.554 192.130 / 1179.684 Weight last 48 hrs Weight 97 kg Weight 92 kg Physical Exam Narrative: EXAM NARRATIVE: GEN: Intubated on MV - Sedated CVS: S1S2 N RS:on vent Abd: Non-distended Ext: bilateral LE edema LANGUAGES AND LITERATURE INSTRUCTOR: Unable to assess - sedated - cardoso in place. Urinary Catheter Management^: Cardoso: Cath Placed During This Visit: yes Reason for Continuing Indwelling Catheter: Accurate Measurement of Urinary Output in Critically Ill Patients Urinary Catheter Date of Insertion: 02/08/21 Urinary Catheter Time of Insertion: 18:17 Data : 02/09/21 02:28 02/09/21 02:28 Micro: Microbiology 02/09/21 11:50 Blood Culture - Preliminary Blood SPECIMEN COLLECTED 02/09/21 11:50 Blood Culture - Preliminary Blood SPECIMEN COLLECTED 02/08/21 14:06 Blood Culture - Preliminary Blood Gram positive cocci 02/08/21 14:08 Blood Culture - Preliminary Blood Gram positive cocci A&P Assessment and plan (1) Hypotension: Status: Acute Qualifiers: Hypotension type: unspecified hypotension type Qualified Code(s): I95.9 - Hypotension, unspecified (2) YASMEEN (acute kidney injury): Status: Acute (3) CHF (congestive heart failure): Status: Acute Qualifiers: Heart failure type: unspecified Heart failure chronicity: unspecified Qualified Code(s): I50.9 - Heart failure, unspecified (4) Atrial fibrillation: Status: Acute Qualifiers: Atrial fibrillation type: longstanding persistent Qualified Code(s): I48.11 - Longstanding persistent atrial fibrillation (5) Diabetes 1.5, managed as type 2: Status: Acute (6) Septic shock: Status: Acute (7) Acute respiratory failure with hypoxia: Status: Acute Acute Hypoxic respiratory failure on MV - Continue to wean Fio02 as tolerated - Currently at 80% - Likely due to fluid overload - ECHO - done today- pending read - Daily weight - Chest x-ray in am - Continue sedation - ABG/Chest x-ray in am - Consider pulmonary consult Sepsis with shock due to gram positive bacteremia - Blood culture x 2 - Gram positive cocci in chains - Continue vancomycin pharmacy to dose - Continue Primixen 250 IV q12hr - Was started on stress dose steroids - will hold off for now - Currently on Levo, dopamine and vasopressin - Wean as tolerated to maintain MAP > 65 - Lactic acid in am - 4.5 -3.0 - Repeat Blood culture x 2 - 2 sites q15 min today - Tylenol per OG prn or fever - Repeat labs in am Acute renal failure / possible ATN - Really dose medication - Monitor u/o - S/p multiple doses of lasix - Hold on further lasix - Renal US - Consider nephrology consult Acute heart failure exacerbation - Unspecified at this time - ECHO pending - Hold on further lasix - May need cardio consult Paroxysmal Atrial fibrillation - Current stable rate - On Rhythmol 150 TID - Change Xarelto to Eliquis due to renal failure - Monitor for bleeding - Followup on ECHO Hypomagnesemia - Mg 2g IV x 1 now - Repeat mg level in am Hypothyroidism - Levothyroxine 175mcg po daily GI pox -Pepcid 20 mg BID DVT pox - On Eliquis Additional A&P Information D/w all family members All questions answered D.w Nurse Attestations Medical Necessity Statement*: Will require further hospitalization for management of shock, bacteremia, YASMEEN, on iv abx/vent Time Spent in Patient Care: Greater than 35 minutes Critical Care Time: Critical Care Time (min): 65 Coding Level of Care Code Acute Cisco Certified Network Professional for [facility] Fwd Diagnoses Hypotension I95.9 Hypotension type: unspecified hypotension type YASMEEN (acute kidney injury) N17.9 CHF (congestive heart failure) I50.9 Heart failure type: unspecified Heart failure chronicity: unspecified Atrial fibrillation I48.11 Atrial fibrillation type: longstanding persistent Diabetes 1.5, managed as type 2 E13.9 Septic shock A41.9; R65.21 Acute respiratory failure with hypoxia J96.01
[2021-02-09 17:19] LABS: Glucose Point of Care 247 mg/dL (70-110)
--- NOTE | 2021-02-09 18:03 | USCV_ITS ---
Sheng Bernstein Age: 80 Gender: M : 1940 Exam Date: 02/09/2021 11:19 Ordering Phys: Claudia Bay MD Technologist: Amanda Ortiz [place] [facility] [place]: Estimate EF, RWMA, Heart failure exacerbation BP: 102 / 51 HR: 84 Rhythm: Sinus Technical Quality: Technically difficult study MEASUREMENTS (Male / Female) Normal Values 2D ECHO LV Diastolic Diameter PLAX 4.5 cm 4.2 - 5.9 / 3.9 - 5.3 cm LV Systolic Diameter PLAX 3.4 cm LV Chamber Size 6.0 cm IVS Diastolic Thickness 1.0 cm 0.6 - 1.0 / 0.6 - 0.9 cm IVS Systolic Thickness 1.4 cm LVPW Diastolic Thickness 1.1 cm 0.6 - 1.0 / 0.6 - 0.9 cm LVPW Systolic Thickness 1.1 cm RV Chamber Size 3.7 cm LVOT Diameter 2.0 cm LV Ejection Fraction 2D Teich 50.4 % LA Diameter 4.5 cm LA Width 2.9 cm LA Height 4.6 cm RA Width 3.0 cm RA Height 4.0 cm Aorta at Sinotubular Diameter 2.6 cm M-MODE LV Diastolic Diameter MM 5.9 cm 4.2 - 5.9 / 3.9 - 5.3 cm LV Systolic Diameter MM 4.5 cm LV Ejection Fraction MM Teich 47.5 % IVS Diastolic Thickness MM 1.4 cm 0.6 - 1.0 / 0.6 - 0.9 cm IVS Systolic Thickness MM 1.2 cm LVPW Diastolic Thickness MM 1.4 cm 0.6 - 1.0 / 0.6 - 0.9 cm LVPW Systolic Thickness MM 1.6 cm RV Diastolic Diameter MM 2.8 cm Aortic Annulus Diameter 3.1 cm LA Ao Ratio MM 1.6 MV E Point Septal Separation 1.2 cm DOPPLER AV Peak Velocity 124.0 cm/s LVOT Peak Velocity 83.0 cm/s AV Area Cont Eq vti 2.0 cm squared AV Area Cont Eq pk 2.2 cm squared MV Area PHT 3.1 cm squared Mitral E to A Ratio 1.0 MV E' Velocity 29.5 cm/s Mitral E to MV E' Ratio 5.8 Mitral E to LV E' Lateral Ratio 4.7 Mitral E to LV E' Septal Ratio 7.6 TR Peak Velocity 265.0 cm/s TR Peak Gradient 28.1 mmHg TV Peak E Velocity 94.0 cm/s Right Atrial Pressure 15.0 mmHg Pulmonary Artery Systolic Pressu 43.1 mmHg PV Peak Velocity 72.0 cm/s RV Acceleration Time 0.1 s RV Ejection Time 0.2 s RV AcT/ET 0.4 FINDINGS Left Ventricle Technically very difficult study. Only parasternal and subcostal views were obtained. The left ventricular patient be diffusely hypokinetic. Ejection fraction around 40% Right Ventricle Possibly of normal size ejection fraction. Right Atrium Possibly of normal size. Left Atrium Patient be upper limit of normal size Mitral Valve Thickened mitral valve. Mild mitral annular calcification. Aortic Valve Thickened aortic valve. Tricuspid Valve No gross abnormalities noted Pulmonic Valve Pulmonic valve not well visualized. Pericardium No pericardial effusion. Aorta Normal aortic annulus size. CONCLUSIONS Possibly normal LV size with reduced ejection fraction of 40% Diffuse hypokinesia of the left ventricle. Thickened mitral valve. Mild mitral annular calcification. Thickened aortic valve. There is no pericardial effusion. Comparison with the previous study from 09/16/2018 is difficult because of the difference in the technical quality. Dr Amy Greenwood MD [facility] (Electronically Signed) Final Date: 09 February 2021 18:37 S
--- NOTE | 2021-02-09 18:07 | USCV_ITS ---
Sheng Bernstein Age: 80 Gender: M : 1940 Exam Date: 02/09/2021 10:57 Ordering Phys: Claudia Bay MD Technologist: Amanda Ortiz [place] [facility] [place] Evaluate for DVT HISTORY: Difficulty breathing PROCEDURES: Comparison: none available. Venous duplex imaging was performed in bilateral lower extremities. The following venous structures were evaluated: common femoral vein, profunda vein, proximal portion of the greater saphenous vein, superficial femoral vein, and the popliteal vein. In addition, the posterior tibial and peroneal trunk were evaluated. Serial compression, augmentation maneuvers, and spectral Doppler flow evaluation were performed. FINDINGS: Examination was technically somewhat limited due to patient's condition. No evidence of DVT seen in any vessel where visualized at this time. The veins were found to be easily compressible with spontaneous blood flow. Non pulsatile flow pattern. CONCLUSIONS No evidence of DVT in the above-mentioned identifiable veins. Technically difficult study because of the patient's body habitus Dr Amy Greenwood MD [facility] (Electronically Signed) Final Date: 09 February 2021 18:45 S
[2021-02-09 20:29] LABS: Glucose Point of Care 265 mg/dL (70-110)
[2021-02-09 20:29] LABS: Glucose Point of Care 256 mg/dL (70-110)
[2021-02-09] MEDS: DOPamine drip 400 MG/250 ML PREMIX 31.1 MG IV (22:17)
[2021-02-10] VITALS (86 sets, daily range): BP systolic 67–128; BP diastolic 42–69; PULSE 78–91; RESP 14–25; TEMP 36.4–37.2; O2SAT 87–99
[2021-02-10] MEDS: ipratropium-albuterol 3 mL Neb INHALATION ×5 (00:29→15:10)
[2021-02-10] MEDS: famotidine 20 mg/2 mL INJ IVP (03:23)
[2021-02-10 04:34] LABS: ABG PCO2 46.1 mmHg (35-45); ABG PH Result 7.24 (7.35-7.45); Arterial Blood Gas Hematocrit 37.2 % (42-52); Base Excess ABG -7.6 mmol/L (-2.0-2.0); Blood Gas Sample Site Brachial, right; Blood Gas Sample Type Arterial; Blood Gas Tidal Volume 0.45; HCO3 ABG 19.7 mmol/L (22-26); Oxygen Device VENT
[2021-02-10 06:22] LABS: INR 1.39 (0.8-1.2)
[2021-02-10] MEDS: levothyroxine 175 mcg Tablet PO (06:30)
[2021-02-10] MEDS: propafenone 150 mg Tablet PO ×2 (06:30→12:35)
[2021-02-10 06:36] LABS: NT Pro B Type Natriuretic Pept 10343 pg/mL (0-450); Procalcitonin 30.09 ng/mL (0-0.5)
[2021-02-10] MEDS: DOPamine drip 400 MG/250 ML PREMIX 31.1 MG IV (06:42)
[2021-02-10 06:48] LABS: Alanine Aminotransferase 32 U/L (0-41); Albumin Level 2.3 g/dL (3.5-5.2); Alkaline Phosphatase 78 IU/L (40-130); Anion Gap 21.1 (5-19); Aspartate Amino Transferase 49 U/L (0-40); Carbon Dioxide 18 mmol/L (22-29); Chloride 89 mmol/L (98-107); Globulin 3.3 g/dL (1.3-4.6); Glucose 149 mg/dL (65-115); Magnesium 2.1 mg/dL (1.7-2.3); Osmolality Calculated 287 mOsm/kg (285-295); Phosphorus 6.2 mg/dL (2.5-4.5); Potassium 4.1 mmol/L (3.5-5.1); Sodium 124 mmol/L (136-145); Total Protein 5.6 g/dL (6.6-8.7)
[2021-02-10 06:55] LABS: Blood Urea Nitrogen 85 mg/dL (8-23); Creatine Phosphokinase 482 U/L (39-308)
[2021-02-10 07:18] LABS: Glucose Point of Care 136 mg/dL (70-110)
[2021-02-10] MEDS: apixaban 5 mg Tablet PO (08:18)
[2021-02-10 10:01] LABS: Hematocrit 34.4 % (42.0-52.0); Hemoglobin 11.9 g/dL (11.7-16.6); Mean Corpuscular HGB Conc 34.6 g/dL (30.0-36.0); Mean Corpuscular Hemoglobin 30.7 pg (28.0-34.0); Mean Corpuscular Volume 88.9 fL (80-94); Mean Platelet Volume 12.4 fL (7.4-10.4); Platelet Count 72 10^3/cmm (130-400); Red Blood Count 3.87 10^6/uL (4.1-5.3); Red Cell Distribution Width 13.5 % (12.1-15.1); White Blood Count 8.4 10^3/uL (4.0-10.0)
--- NOTE | 2021-02-10 10:33 | PM.PN ---
Subjective Subjective: Interval history: Afebrile over last 24 hours, creatinine worsening 4.1, sodium 124, urine output 2 L, ABG with metabolic acidosis, blood culture from 02/08 with GPC is now identified as group A strep preliminarily, thus far no growth on 02/09, continues to be on dopamine, Levophed and vasopressin Medications: Reviewed: Yes Vitals/I&O/Wt Last Vital Signs Temp 98.5 F 02/10/21 08:00 Pulse 89 02/10/21 08:00 Resp 18 02/10/21 08:00 BP 98/61 02/10/21 08:00 Pulse Ox 95 02/10/21 08:00 02/09/21 02/10/21 02/10/21 21:59 06:59 14:59 Intake Total 40 / 40 Output Total 60 / 60 Balance -20 / -20 Weight last 48 hrs Weight 97 kg Weight 97 kg Weight 92 kg Physical Exam Narrative: EXAM NARRATIVE: GEN: Intubated, sedated, opens eyes intermittently to command, does not follow directions otherwise CVS: S1S2 N RS: Bilateral coarse crackles on auscultation, right greater than left Abd: Soft, nt/nd , bs+ [employer]: Unable to assess Extremities no noted skin break, cellulitis, joint swelling noted. Urinary Catheter Management^: Cabezas: Cath Placed During This Visit: yes Reason for Continuing Indwelling Catheter: Accurate Measurement of Urinary Output in Critically Ill Patients Urinary Catheter Date of Insertion: 02/08/21 Urinary Catheter Time of Insertion: 18:17 Data : 02/09/21 02:28 02/10/21 05:21 Micro: Microbiology 02/08/21 14:06 Blood Culture - Preliminary Blood Strep pyogenes (grp a) 02/08/21 14:08 Blood Culture - Preliminary Blood Strep pyogenes (grp a) 02/09/21 11:50 Blood Culture - Preliminary Blood SPECIMEN COLLECTED 02/09/21 11:50 Blood Culture - Preliminary Blood SPECIMEN COLLECTED A&P Assessment and plan (1) Septic shock: Status: Acute (2) YASMEEN (acute kidney injury): Status: Acute (3) CHF (congestive heart failure): Status: Acute Qualifiers: Heart failure type: unspecified Heart failure chronicity: unspecified Qualified Code(s): I50.9 - Heart failure, unspecified (4) Atrial fibrillation: Status: Acute Qualifiers: Atrial fibrillation type: longstanding persistent Qualified Code(s): I48.11 - Longstanding persistent atrial fibrillation (5) Diabetes 1.5, managed as type 2: Status: Acute (6) Acute respiratory failure with hypoxia: Status: Acute Acute Hypoxic respiratory failure on MV - Continue to wean Fio02 as tolerated - Currently at 80% - Likely due to fluid overload - ECHO - done today- pending read - Daily weight - Chest x-ray in am - Continue sedation - ABG/Chest x-ray in am - Consider pulmonary consult Sepsis with shock due to gram positive bacteremia - Blood culture x 2 - Gram positive cocci in chains - Continue vancomycin pharmacy to dose - Continue Primixen 250 IV q12hr - Was started on stress dose steroids - will hold off for now - Currently on Levo, dopamine and vasopressin - Wean as tolerated to maintain MAP > 65 - Lactic acid in am - 4.5 -3.0 - Repeat Blood culture x 2 - 2 sites q15 min today - Tylenol per OG prn or fever - Repeat labs in am Acute renal failure / possible ATN - Really dose medication - Monitor u/o - S/p multiple doses of lasix - Hold on further lasix - Renal US - Consider nephrology consult Acute heart failure exacerbation - Unspecified at this time - ECHO pending - Hold on further lasix - May need cardio consult Paroxysmal Atrial fibrillation - Current stable rate - On Rhythmol 150 TID - Change Xarelto to Eliquis due to renal failure - Monitor for bleeding - Followup on ECHO Hypomagnesemia - Mg 2g IV x 1 now - Repeat mg level in am Hypothyroidism - Levothyroxine 175mcg po daily GI pox -Pepcid 20 mg BID DVT pox - On Eliquis Additional A&P Information # Sepsis with shock due to gram positive bacteremia, preliminary identified as group A strep - Blood culture x 2 from February 08 with group A strep/strep pyogenes -February 09 blood cx thus far NGTD - Continue vancomycin pharmacy to dose - Continue Primaxin 250 IV q12hr - hold off on narrowing abx for now until cx finalized - Currently on Levo, dopamine and vasopressin - Wean as tolerated to maintain MAP > 65 - Lactic acid in am - 4.5 -3.0 - Source unclear- may be GI source given onset of symptoms with nausea vomiting and diarrhea 2 days prior to presentation. No gross cellulitis or pyogenic abscesses seen on CT of chest abdomen pelvis. No pneumonia or infiltrates upon admission. No suppurative joints on gross examination. no h/o URI symptoms prior to presentation. Echocardiogram with reduced LV function at 40%, hypokinetic LV Acute Hypoxic respiratory failure on MV - Continue to wean Fio02 as tolerated - Currently at 75% - Likely due to fluid overload -critical care consult on Thursday, N/A over the weekend Acute renal failure - Likely ATN vs GN from sepsis - Monitor u/o - S/p lasix 20mg 02/08, 40mg 02/09, further doses held -urine output 2L - metabolic acidosis on ABG this am - Hold on further lasix - Ct abdomen/pelvis without hydronephrosis or obstrcuion - UA 2+ blood, 10-15WBC, 3+ bacteria, 5-10 Hyaline casts - nephrology consult to assist with management of developing metabolic abnormalities, worsening YASMEEN, hyponatremia , assess for dialysis - stop eliquis. Change to lovenox 1mg/kg q24h (renally dosed) during inpatient stay in case needs any procedures in the upcoming few days - [facility] to assess for fluid responsiveness - Acute on chronic CHF excaerbation LVEF 40%, hypokinetic LV, difficult to compare to prior echo BNP 13K, Lasix on 02/08 and 02/09 as above , on hold currently due to persisting hypotension - Paroxysmal Atrial fibrillation - Current stable rate - On Rhythmol 150 TID -Home a/c xarelto-->changed to lovenox on 02/10 while inpatient Hypothyroidism - Levothyroxine 175mcg po daily GI ppx -Pepcid 20 mg BID DVT ppx - On Lovenox Attestations Medical Necessity Statement*: septic shock, iv abx, resp failure, mech ventilation ,worsening renal function Coding Level of Care Code Acute Fire Protection Engineer for [facility] Diagnoses Septic shock A41.9; R65.21 YASMEEN (acute kidney injury) N17.9 CHF (congestive heart failure) I50.9 Heart failure type: unspecified Heart failure chronicity: unspecified Atrial fibrillation I48.11 Atrial fibrillation type: 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
[2021-02-10 11:23] LABS: Glucose Point of Care 166 mg/dL (70-110)
--- NOTE | 2021-02-10 11:34 | XRR_ITS ---
PROCEDURE INFORMATION: Exam: XR Chest Exam date and time: 02/10/2021 1:40 PM Age: 80 years old Clinical indication: Device placement; Ett placement (vent status); Additional info: Follow-up on interval development of chest infiltrates TECHNIQUE: Imaging protocol: XR of the chest Views: 1 view. COMPARISON: CR (CHEST, ) 02/09/2021 8:15 AM FINDINGS: Tubes, catheters and devices: Right central venous catheter tip approximately at the cavoatrial junction. Endotracheal tube tip approximately 5.5 cm above the comfort. NG tube tip in the stomach. Lungs: Bilateral lower lung opacities, unchanged. Pleural spaces: The no definite pleural effusion. No pneumothorax. Heart/Mediastinum: No cardiomegaly. Bones/joints: No acute findings. XR/XR chest 1V portable [id number] IMPRESSION: Bilateral lower lung atelectasis versus pneumonia.
[2021-02-10 11:41] LABS: Slide Review Slide Review Perform
[2021-02-10 11:43] LABS: Absolute Eosinophils 0.2 10^3/cmm (0.0-0.7); Absolute Segmented Neutrophil 4.2 10/cmm (1.6-7.1); Band Neutrophils Absolute 3.1 10^3/cmm (0.0-1.2); Eosinophils 3 %; Lymphocytes 8 %; Monocytes Absolute 0.2 10^3/cmm (0.1-0.6); Segmented Neutrophils 50 %; Total Cells Counted 100 (0-100)
[2021-02-10 11:44] LABS: Poikilocytosis Trace
[2021-02-10 11:45] LABS: Absolute Neutrophil 7.3 10^3/cmm (1.4-6.5); Anisocytosis Trace; Dohle Bodies Trace; Giant Platelets Trace; Platelet Estimate Decreased (Normal)
--- NOTE | 2021-02-10 12:20 | PM.CONSULT ---
Providers/Reason For Consult Consulting Physican/Specialty*: Stacia Castro DO Reason for Consult*: Acute kidney injury Attending Physician: Claudia Bay MD Primary Care Provider: Avtar Ngo DO History of Present Illness History of Present Illness Sheng Bernstein is a 80 year old male admitted with septic shock. Admission Cr 3.4 mg/dL. Cr 1.2 mg/dL in 2018 at bedside, reports Sheng has no history of renal disease. Review of Systems General: Reports: ROS unobtainable due to endotracheal tube Meds/Allergies Home Medications and Allergies Home Medications Medication Instructions Recorded Confirmed Last Taken Type amlodipine 10 mg tablet 10 mg PO DAILY@0730 02/08/20 02/08/21 02/08/21 History atenolol 100 mg-chlorthalidone 25 See Rx Instructions PO DAILY 02/08/20 02/08/21 02/08/21 History mg tablet furosemide 40 mg tablet 40 mg PO DAILY@0730 02/08/20 02/08/21 02/08/21 History levothyroxine 175 mcg capsule 175 mcg PO DAILY@0730 02/08/20 02/08/21 02/08/21 History losartan 50 mg tablet 50 mg PO DAILY@0700 02/08/20 02/08/21 02/08/21 History metformin 1,000 mg tablet 1,000 mg PO BID@0730,2100 02/08/20 02/08/21 02/08/21 History niacin 250 mg tablet,extended 250 mg PO DAILY@0730 02/08/20 02/08/21 02/08/21 History release nitroglycerin 0.4 mg sublingual 0.4 mg SUBLINGUAL Q5M PRN 02/08/20 02/08/21 02/08/21 History tablet pantoprazole 20 mg tablet,delayed 20 mg PO DAILY@0730 02/08/20 02/08/21 02/08/21 History release propafenone 150 mg tablet 150 mg PO TID@0730,1230,1930 02/08/20 02/08/21 02/08/21 History terazosin 5 mg capsule 5 mg PO DAILY@0730 02/08/20 02/08/21 02/08/21 History diphenhydramine-acetaminophen 1 tab PO Q4H PRN 02/08/21 02/08/21 02/07/21 History [Tylenol PM Extra Strength] ondansetron 4 mg PO TID PRN 02/08/21 02/08/21 02/08/21 History potassium chloride 10 meq PO DAILY@30 02/08/21 02/08/21 02/08/21 History rivaroxaban [Xarelto] 20 mg PO DAILY@0730 02/08/21 02/08/21 02/08/21 History Allergies Allergy/AdvReac Type Severity Reaction Status Date / Time Penicillins Allergy Severe ADR/ALGY-Pa Verified 02/08/21 12:56 lpitations Current Medications Current Medications Generic Name Dose Route Start Last Admin Trade Name Freq PRN Reason Stop Dose Admin Acetaminophen 650 mg 02/08/21 23:04 02/08/21 23:36 Acetaminophen 325 Mg Tablet PO 650 mg Q6H PRN Administration MILD PAIN Albuterol/Ipratropium 3 ml 02/08/21 20:00 02/10/21 11:44 Ipratropium-Albuterol 3 Ml Neb INHALATION 3 ml Q4H.RESPIRATORY SANDRA Administration Famotidine 20 mg 02/09/21 03:45 02/10/21 03:23 Famotidine 20 Mg/2 Ml Inj IVP 20 mg Q12H SANDRA Administration Norepinephrine Bitartrate 4 mg 254 mls @ 0 mls/hr 02/08/21 14:30 02/08/21 18:46 / Dextrose IV Infused .Q0M SANDRA Titration Protocol Per Protocol Norepinephrine Bitartrate 8 mg 508 mls @ 0 mls/hr 02/08/21 17:45 02/09/21 20:30 / Dextrose IV 7 mcg/min .Q0M SANDRA 26.7 mls/hr Titration Protocol Per Protocol Imipenem/Cilastatin Sodium 250 100 mls @ 200 mls/hr 02/09/21 02:00 02/10/21 03:24 mg/ Sodium Chloride IV 200 mls/hr Q12H SANDRA Administration Protocol Vancomycin/PEG/NADA/Lysine/Water 1,500 mg in 300 mls @ 200 mls/hr 02/08/21 23:00 02/09/21 00:38 Vancocin IV Infused Q48H SANDRA Infusion Vasopressin 100 unit/ Sodium 100 mls @ 0 mls/hr 02/09/21 01:00 02/09/21 22:49 Chloride IV 0.08 unit/min .Q0M SANDRA 4.8 mls/hr Administration Protocol Per Protocol Fentanyl 1,000 mcg/ Sodium 100 mls @ 0 mls/hr 02/09/21 01:15 02/10/21 04:49 Chloride IV 75 mcg/hr .Q0M SANDRA 7.5 mls/hr Administration Protocol Per Protocol Propofol 1,000 mg in 100 mls @ 0 mls/hr 02/09/21 01:15 02/09/21 06:35 Diprivan IV Infused .Q0M SANDRA Titration Protocol Per Protocol Dopamine HCl/Dextrose 400 mg in 250 mls @ 17.25 mls/hr 02/09/21 03:15 02/10/21 06:42 Intropin Drip IV 9 mcg/kg/min CONT SANDRA 31.1 mls/hr Administration Protocol 5 MCG/KG/MIN Dexmedetomidine HCl 400 mcg/ 104 mls @ 0 mls/hr 02/09/21 03:15 02/09/21 09:00 Sodium Chloride IV 0 mcg/kg/hr .Q0M SANDRA 0 mls/hr Titration Protocol Per Protocol Midazolam HCl 100 mg/ Sodium 100 mls @ 0 mls/hr 02/09/21 05:15 02/09/21 09:00 Chloride IV 3 mg/hr .Q0M SANDRA 3 mls/hr Titration Protocol Per Protocol Insulin Aspart 0 unit 02/08/21 21:00 02/10/21 08:17 Insulin Aspart 100 Unit/1 Ml SUBCUT Not Given WM&BEDTIME SANDRA Protocol Levothyroxine Sodium 175 mcg 02/09/21 07:30 02/10/21 06:30 Levothyroxine 175 Mcg Tablet PO 175 mcg DAILY@0730 SANDRA Administration Lorazepam 0.5 mg 02/08/21 21:03 02/08/21 21:16 Lorazepam 2 Mg/Ml Inj 1 Ml IVP 0.5 mg Q6H PRN Administration ANXIETY Morphine Sulfate 1 mg 02/08/21 21:02 02/08/21 21:14 Morphine 4 Mg/Ml Sdv 1 Ml IVP 1 mg Q4H PRN Administration SEVERE PAIN Propafenone HCl 150 mg 02/08/21 19:30 02/10/21 06:30 Propafenone 150 Mg Tablet PO 150 mg TID@0730,1230,1930 SANDRA Administration PFSH Acute PFSH: Medical History Anticoagulation adequate with anticoagulant therapy Xarelto Atrial fibrillation CHF (congestive heart failure) Diabetes 1.5, managed as type 2 Dyslipidemia HTN (hypertension) Family History Father Diabetes Social History Smoking and tobacco status: former smoker Household members: spouse Marital status: service: No Current occupational status: retired Vitals/I&O/Wt Last Vital Signs Temp 98.9 F 02/10/21 12:00 Pulse 81 02/10/21 12:00 Resp 19 H 02/10/21 12:00 BP 98/61 02/10/21 12:00 Pulse Ox 96 02/10/21 11:45 02/09/21 02/10/21 02/10/21 21:59 06:59 14:59 Intake Total 40 / 40 Output Total 135 / 135 Balance -95 / -95 Weight last 48 hrs Weight 97 kg Weight 97 kg Weight 92 kg Physical Exam Const: GENERAL APPEARANCE: patient mechanically ventilated Extremity: GENERAL: No edema Urinary Catheter Management^: Cabezas: Cath Placed During This Visit: yes Reason for Continuing Indwelling Catheter: Accurate Measurement of Urinary Output in Critically Ill Patients Urinary Catheter Date of Insertion: 02/08/21 Urinary Catheter Time of Insertion: 18:17 Data Labs: Other Labs: 7.24/46/74 on AC 14/450/65% +14 peep elevated lactic acid, albumin 2.3, bilirubin 3, LFTs normal Ca 7, phos 6.2, Mg 2.1, CK 482 urinalysis + WBC, hyaline casts Micro: Micro: Microbiology 02/09/21 11:50 Blood Culture - Pr eliminary Blood NEGATIVE TO JAN E 02/09/21 11:50 Blood Culture - Pr eliminary Blood NEGATIVE TO JAN E 02/08/21 14:06 Blood Culture - Pr eliminary Blood Strep pyogenes (grp a) 02/08/21 14:08 Blood Culture - Pr eliminary Blood Strep pyogenes (grp a) Imaging^: Echo: Radiologist's impression: CONCLUSIONS Possibly normal LV size with reduced ejection fraction of 40% Diffuse hypokinesia of the left ventricle. Thickened mitral valve. Mild mitral annular calcification. Thickened aortic valve. There is no pericardial effusion. CT Abd/Pel: Radiologist's impression: 1. No acute pulmonary infiltrates. Lungs are well aerated. Subsegmental atelectasis in the lung bases. 2. No free fluid in the abdomen or pelvis. 3. Perinephric edema can be seen with renal insufficiency. 4. No free fluid or fluid collections in the abdomen or pelvis. 5. Sigmoid diverticulosis. No evidence of acute diverticulitis. 6. No acute findings in the chest abdomen or pelvis. A&P Additional A&P Information 1. Septic shock (strep pyogenes) source unknown, VDRF, YASMEEN, on 3 pressors, I/O + 5 liters 2. Oliguric acute kidney injury due to ischemic ATN 3. Metabolic acidosis: lactic + renal failure, was on metformin prior to admission, also respiratory acidosis 4. Hyponatremia, likely hypervolemic, although no peripheral or pulmonary edema Recommend; NSS bolus, + IVF with sodium bicarbonate, low dose lasix gtt if oxygenation worsens, GN workup (unlikely). May need dialysis. aware. Will follow with you. Consult Attestations Medical Necessity Statement: multi organ failure in ICU Time Spent in Patient Care: Greater than 35 minutes Coding Level of Care Code Acute Pattern Chart Writer for [facility]
[2021-02-10 12:24] LABS: C Reactive Protein 345.6 mg/L (0.0-4.9)
--- NOTE | 2021-02-10 14:17 | PC.NURSE ---
blood pressure dropping at this time increaseing levophed and o2 sats decreased with noted prolong inspiration rate pcxr done
[2021-02-10 14:27] LABS: ABG PCO2 50.1 mmHg (35-45); Arterial Blood Gas Hematocrit 38.5 % (42-52); Blood Gas Allen Test Pos; Blood Gas Sample Type Arterial; HCO3 ABG 17.7 mmol/L (22-26); PO2 ABG 67.8 mmHg (80.0-100.0)
[2021-02-10 14:28] LABS: Blood Gas Sample Site Radial, right; Blood Gas Tidal Volume 0.45; Oxygen Device VENT
[2021-02-10 14:30] LABS: ABG PH Result 7.16 (7.35-7.45)
[2021-02-10] MEDS: sodium chloride 0.9% 250 ML IV (14:36)
[2021-02-10] MEDS: DOPamine drip 400 MG/250 ML PREMIX 34.5 MG IV (14:42)
[2021-02-10] MEDS: EPINEPHrine 2.5 MG in sodium chloride 0.9% 250 ML 12.1 MG IV (15:02)
--- NOTE | 2021-02-10 15:26 | PC.NURSE ---
I noticed the patient's spo2 was decreasing, his blood pressure was also decreasing. I suctioned his oral cavity and got a small amount of mucus. His spo2 and blood pressure did not improve. I also noticed his breathing was becoming more labored. I mentioned this to my preceptor and we did a deep suction and only retrieved a small amount of mucus. We then called respiratory to consult with us. Respiratory made some changes, but we still were not getting the results we desired. We called Dr. Bay to come see the patient. Dr. Bay started making changes and additions to his medications, including adding bicarbonate, epinephrine, and normal saline and discontinuing the dopamine. At the same time, respiratory swapped out the ventilator for a different one. These changes helped to improve his spo2 and blood pressure. At this time his blood pressure and spo2 are holding steady. We will be transferring the patient to a facility that can perform Continuous Renal Therapy today via a helicopter, if available.
[2021-02-10 15:58] LABS: Potassium, Radom Urine 65 mmol/L; Urine Random Sodium 24 mmol/L
--- NOTE | 2021-02-10 16:08 | P.TS_ITS ---
Transfer Summary Providers Date of Admission: 02/08/21 16:21 Date of Discharge: 02/10/21 Attending Provider at Admission: Claudia Bay MD Attending Provider at Transfer: Claudia Bay MD Primary Care Provider: Avtar Ngo DO Anticipated Date of Transfer: Anticipated date of transfer: 02/10/21 Receiving Facility & Provider: Receiving Provider: [] Receiving facility: [] Diagnoses at Discharge Discharge Diagnosis (1) Septic shock: Status: Acute (2) YASMEEN (acute kidney injury): Status: Acute (3) CHF (congestive heart failure): Status: Acute Qualifiers: Heart failure type: unspecified Heart failure chronicity: unspecified Qualified Code(s): I50.9 - Heart failure, unspecified (4) Atrial fibrillation: Status: Acute Qualifiers: Atrial fibrillation type: longstanding persistent Qualified Code(s): I48.11 - Longstanding persistent atrial fibrillation (5) Diabetes 1.5, managed as type 2: Status: Acute (6) Acute respiratory failure with hypoxia: Status: Acute Reason for Visit Reason for Visit: WEAK/SENT BY PCP Hospital Course Hospital Course 80-year-old male who presented to the hospital on February 08, 2021 after developing nausea vomiting and diarrhea starting 2 days prior to admission, went to PCP on tested negative for Covid by rapid test and given symptomatic treatment with Zofran. Returned to the hospital as he became dizzy at home and sustained a fall. Noted to be hypotensive down to 70s and sent to the ER. Initially started on IV fluid resuscitation and Levophed, CT of the chest abdomen and pelvis without contrast did not show any gross consolidation or intra-abdominal abscesses. During the course of the evening of February 08 he continued to rapidly deteriorate, developed acute respiratory failure for which he was intubated and has been on mechanical ventilation ever since. Antibiotics since admission have been imipenem and vancomycin. HE has also developing progressive acute renal failure during this admission. Creatinine upon presentation was at 3.4, trending up to 4.1. Also subsequently developing metabolic acidosis. Most recent ABG from this afternoon at pH of 7.15, 50, 67.8, 89.6, K of 4.5 on vent settings of 75% FiO2, PEEP of 8, tidal volume 450. Blood cultures from February 08 eventually returned positive for strep pyogenes 4 out of 4 bottles. March 13 blood cultures are negative thus far. Septic shock has continued to worsen during the course of admission, patient is currently on 3 pressors including Levophed, vasopressin and epinephrine. Nephrology consult was obtained today due to worsening YASMEEN, severe respiratory acidosis and metabolic abnormalities, at this time patient would be a candidate for CRRT which is currently unavailable at our facility. He is therefore being transferred to [facility] in [facility] for higher level of care. I have spoken extensively to the family including his son and daughter at bedside. Explained to the family that he is currently critically ill, overall unstable and there is a high risk of clinical deterioration and possible cardiac arrest and en route to the higher facility, however the benefits of transfer at this time outweigh the risks. Family understands and wishes to proceed with transfer. Air-Evac has been arranged. Most recent vital signs are blood pressure of 116/82 map of 74, heart rate of 82, intubated, sedated with fentanyl and Versed, O2 sat 96% on mechanical ventilator. On levophed, epinephrine and vasopressin. RIJ CVC in place. Cabezas in Place. For other details please refer to my progress note from today. Physical Exam Narrative: EXAM NARRATIVE: GEN: Intubated, sedated CVS: S1S2 N RS: CTA B/L Abd: Soft, nt/nd , bs+ BATCH STILL OPERATOR: Intubated,sedated Urinary Catheter Management^: Cabezas: Cath Placed During This Visit: yes Reason for Continuing Indwelling Catheter: Accurate Measurement of Urinary Output in Critically Ill Patients Urinary Catheter Date of Insertion: 02/08/21 Urinary Catheter Time of Insertion: 18:17 TS Data Data Completed and Pending: Completed Studies During Hospitalization Category Date Time Status CT chest abd pel wo con Stat Cat Scan 02/08/21 15:[address] head wo con* 7 0450 Urgent Cat Scan 02/08/21 12:58 Completed CXRP [XR chest 1V portable [id number]] R outine Exams 02/09/21 07:46 Completed XR chest 1V rico ble [id number] Routine Exams 02/10/21 11:34 Completed XR chest 1V rico ble [id number] Stat Exams 02/08/21 22:18 Completed XR chest 1V rico ble [id number] Stat Exams 02/09/21 01:24 Completed XR chest 1V rico ble [id number] Urgent Exams 02/08/21 12:58 Completed XR wrist RT 2V 73 100 Stat Exams 02/08/21 13:58 Completed CV echo complete* [id number] Routine Ultrasound 02/09/21 18:03 [place] [id number] Routin e Ultrasound 02/09/21 18:07 Completed Pending at discharge Category Date Time Status Arterial Blood Ga s W/O Coox AM LABS Lab 02/11/21 04:00 Ordered BMP [Basic Metabo lic Panel] Routine Lab 02/10/21 19:20 Ordered Blood Culture Sta t Lab 02/08/21 14:08 Results Blood Culture Sta t Lab 02/09/21 11:50 Results C Reactive Protei n AM LABS Lab 02/11/21 04:00 Ordered Complement C3 AM LABS Lab 02/11/21 04:00 Ordered Complement C4 AM LABS Lab 02/11/21 04:00 Ordered Complete Blood Co unt w/Auto AM LABS Lab 02/11/21 04:00 Ordered Comprehensive Met abolic Panel AM LA BS Lab 02/11/21 04:00 Ordered Creatine Phosphok inase AM LABS Lab 02/11/21 04:00 Ordered Lactate (Lactic A claus level) AM LABS Lab 02/11/21 04:00 Ordered Magnesium AM LABS Lab 02/11/21 04:00 Ordered NT Pro B Type Ryann riuretic Pept QAM Lab 02/11/21 06:00 Ordered Phosphorus AM LAB S Lab 02/11/21 04:00 Ordered Procalcitonin AM LABS Lab 02/11/21 04:00 Ordered Prothrombin Time INR AM LABS Lab 02/11/21 04:00 Ordered Urine Culture Rou petar Lab 02/08/21 18:15 Received Urine Random Lyte s Routine Lab 02/10/21 11:31 Results Vancomycin Random Routine Lab 02/11/21 07:21 Ordered Labs from last 24 hours 02/10/21 02/10/21 02/10/21 14:16 11:31 11:10 WBC Corrected WBC RBC Hgb Hct MCV MCH MCHC RDW Plt Count MPV Gran % Neut % (Auto) Lymph % (Auto) Garza % (Auto) Eos % (Auto) Baso % (Auto) Neut # (Auto) Lymph # (Auto) Garza # (Auto) Eos # (Auto) Baso # (Auto) Absolute Gran (aut o) Nucleated RBC % (a uto) Total Counted Atypical Lymphs % Absolute Neutrophi ls Segmented Neutroph ils Abs Segm Neuts (Ma n) Band Neutrophils Abs Band Neuts (Ma n) Lymphocytes (Manua l) Monocytes (Manual) Absolute Monocytes Eosinophils (Manua l) Absolute Eosinophi ls Basophils (Manual) Absolute Basophils Nucleated RBCs # Dohle Bodies Platelet Estimate Giant Platelets Poikilocytosis Anisocytosis PT INR Specimen Type Arterial Sample Site Radial, right ABG pH 7.16 L* ABG pCO2 50.1 H ABG pO2 67.8 L ABG HCO3 17.7 L ABG Base Excess -11.0 L Triston Test Pos Hematocrit 38.5 L O2 Delivery Device Vent Mechanical Rate FiO2 75.0 Tidal Volume 0.45 PEEP 8.0 Electric Freight Car Operator ID jmn Sodium Potassium Chloride Carbon Dioxide Anion Gap BUN Creatinine GFR Calculation Glucose POC Glucose 166 H Calculated Osmolal ity Lactate Calcium Phosphorus Magnesium Total Bilirubin AST ALT Alkaline Phosphata se Creatine Kinase C-Reactive Protein NT-Pro-B Natriuret Pep Total Protein Albumin Globulin Procalcitonin Ur Random Sodium 24 Ur Random Potassiu m 65 Ur Random Chloride Pending 02/10/21 02/10/21 02/10/21 09:54 08:53 07:12 WBC 8.4 Cancelled Corrected WBC Cancelled RBC 3.87 L Cancelled Hgb 11.9 Cancelled Hct 34.4 L Cancelled MCV 88.9 Cancelled MCH 30.7 Cancelled MCHC 34.6 Cancelled RDW 13.5 Cancelled Plt Count 72 L Cancelled MPV 12.4 H Cancelled Gran % Cancelled Neut % (Auto) Cancelled Lymph % (Auto) Not Reportable Cancelled Garza % (Auto) Not Reportable Cancelled Eos % (Auto) Cancelled Baso % (Auto) Cancelled Neut # (Auto) Cancelled Lymph # (Auto) Not Reportable Cancelled Garza # (Auto) Not Reportable Cancelled Eos # (Auto) Cancelled Baso # (Auto) Cancelled Absolute Gran (aut o) Cancelled Nucleated RBC % (a uto) Cancelled Total Counted 100 Atypical Lymphs % 0.0 Absolute Neutrophi ls 7.3 H Segmented Neutroph ils 50 Abs Segm Neuts (Ma n) 4.2 Band Neutrophils 37.0 Abs Band Neuts (Ma n) 3.1 H Lymphocytes (Manua l) 8 Monocytes (Manual) 2.0 Absolute Monocytes 0.2 Eosinophils (Manua l) 3 Absolute Eosinophi ls 0.2 Basophils (Manual) 0.0 Absolute Basophils 0.0 Nucleated RBCs # Cancelled Dohle Bodies Trace Platelet Estimate Decreased Giant Platelets Trace Poikilocytosis Trace Anisocytosis Trace PT INR Specimen Type Sample Site ABG pH ABG pCO2 ABG pO2 ABG HCO3 ABG Base Excess Triston Test Hematocrit O2 Delivery Device Mechanical Rate FiO2 Tidal Volume PEEP Electric Freight Car Operator ID Sodium Potassium Chloride Carbon Dioxide Anion Gap BUN Creatinine GFR Calculation Glucose POC Glucose 136 H Calculated Osmolal ity Lactate Calcium Phosphorus Magnesium Total Bilirubin AST ALT Alkaline Phosphata se Creatine Kinase C-Reactive Protein NT-Pro-B Natriuret Pep Total Protein Albumin Globulin Procalcitonin Ur Random Sodium Ur Random Potassiu m Ur Random Chloride 02/10/21 02/10/21 02/10/21 05:21 05:21 05:21 WBC Corrected WBC RBC Hgb Hct MCV MCH MCHC RDW Plt Count MPV Gran % Neut % (Auto) Lymph % (Auto) Garza % (Auto) Eos % (Auto) Baso % (Auto) Neut # (Auto) Lymph # (Auto) Garza # (Auto) Eos # (Auto) Baso # (Auto) Absolute Gran (aut o) Nucleated RBC % (a uto) Total Counted Atypical Lymphs % Absolute Neutrophi ls Segmented Neutroph ils Abs Segm Neuts (Ma n) Band Neutrophils Abs Band Neuts (Ma n) Lymphocytes (Manua l) Monocytes (Manual) Absolute Monocytes Eosinophils (Manua l) Absolute Eosinophi ls Basophils (Manual) Absolute Basophils Nucleated RBCs # Dohle Bodies Platelet Estimate Giant Platelets Poikilocytosis Anisocytosis PT 17.50 H INR 1.39 H Specimen Type Sample Site ABG pH ABG pCO2 ABG pO2 ABG HCO3 ABG Base Excess Triston Test Hematocrit O2 Delivery Device Mechanical Rate FiO2 Tidal Volume PEEP Electric Freight Car Operator ID Sodium 124 L Potassium 4.1 Chloride 89 L Carbon Dioxide 18 L Anion Gap 21.1 H BUN 85 H* Creatinine 4.1 H GFR Calculation Not Reportable Glucose 149 H POC Glucose Calculated Osmolal ity 287 Lactate 3.0 H Calcium 7.0 L Phosphorus 6.2 H Magnesium 2.1 Total Bilirubin 3.0 H AST 49 H ALT 32 Alkaline Phosphata se 78 Creatine Kinase 482 H* C-Reactive Protein 345.6 H NT-Pro-B Natriuret Pep 06548 H Total Protein 5.6 L Albumin 2.3 L Globulin 3.3 Procalcitonin 30.09 H Ur Random Sodium Ur Random Potassiu m Ur Random Chloride 02/10/21 02/10/21 02/09/21 05:21 04:20 20:26 WBC Cancelled Corrected WBC Cancelled RBC Cancelled Hgb Cancelled Hct Cancelled MCV Cancelled MCH Cancelled MCHC Cancelled RDW Cancelled Plt Count Cancelled MPV Cancelled Gran % Cancelled Neut % (Auto) Cancelled Lymph % (Auto) Cancelled Garza % (Auto) Cancelled Eos % (Auto) Cancelled Baso % (Auto) Cancelled Neut # (Auto) Cancelled Lymph # (Auto) Cancelled Garza # (Auto) Cancelled Eos # (Auto) Cancelled Baso # (Auto) Cancelled Absolute Gran (aut o) Cancelled Nucleated RBC % (a uto) Cancelled Total Counted Atypical Lymphs % Absolute Neutrophi ls Segmented Neutroph ils Abs Segm Neuts (Ma n) Band Neutrophils Abs Band Neuts (Ma n) Lymphocytes (Manua l) Monocytes (Manual) Absolute Monocytes Eosinophils (Manua l) Absolute Eosinophi ls Basophils (Manual) Absolute Basophils Nucleated RBCs # Cancelled Dohle Bodies Platelet Estimate Giant Platelets Poikilocytosis Anisocytosis PT INR Specimen Type Arterial Sample Site Brachial, right ABG pH 7.24 L ABG pCO2 46.1 H ABG pO2 74.0 L ABG HCO3 19.7 L ABG Base Excess -7.6 L Triston Test N/a Hematocrit 37.2 L O2 Delivery Device Vent Mechanical Rate 14.0 FiO2 65.0 Tidal Volume 0.45 PEEP 14.0 Electric Freight Car Operator ID Hinja Sodium Potassium Chloride Carbon Dioxide Anion Gap BUN Creatinine GFR Calculation Glucose POC Glucose 256 H Calculated Osmolal ity Lactate Calcium Phosphorus Magnesium Total Bilirubin AST ALT Alkaline Phosphata se Creatine Kinase C-Reactive Protein NT-Pro-B Natriuret Pep Total Protein Albumin Globulin Procalcitonin Ur Random Sodium Ur Random Potassiu m Ur Random Chloride 02/09/21 02/09/21 20:24 17:07 WBC Corrected WBC RBC Hgb Hct MCV MCH MCHC RDW Plt Count MPV Gran % Neut % (Auto) Lymph % (Auto) Garza % (Auto) Eos % (Auto) Baso % (Auto) Neut # (Auto) Lymph # (Auto) Garza # (Auto) Eos # (Auto) Baso # (Auto) Absolute Gran (aut o) Nucleated RBC % (a uto) Total Counted Atypical Lymphs % Absolute Neutrophi ls Segmented Neutroph ils Abs Segm Neuts (Ma n) Band Neutrophils Abs Band Neuts (Ma n) Lymphocytes (Manua l) Monocytes (Manual) Absolute Monocytes Eosinophils (Manua l) Absolute Eosinophi ls Basophils (Manual) Absolute Basophils Nucleated RBCs # Dohle Bodies Platelet Estimate Giant Platelets Poikilocytosis Anisocytosis PT INR Specimen Type Sample Site ABG pH ABG pCO2 ABG pO2 ABG HCO3 ABG Base Excess Triston Test Hematocrit O2 Delivery Device Mechanical Rate FiO2 Tidal Volume PEEP Electric Freight Car Operator ID Sodium Potassium Chloride Carbon Dioxide Anion Gap BUN Creatinine GFR Calculation Glucose POC Glucose 265 H 247 H Calculated Osmolal ity Lactate Calcium Phosphorus Magnesium Total Bilirubin AST ALT Alkaline Phosphata se Creatine Kinase C-Reactive Protein NT-Pro-B Natriuret Pep Total Protein Albumin Globulin Procalcitonin Ur Random Sodium Ur Random Potassiu m Ur Random Chloride Addt'l Data from Hospital Stay: Laboratory Results WBC 8.4 10^3/uL (4.0- 10.0) 02/10/21 09:54 Corrected WBC Cancelled 02/10/21 08:53 RBC 3.87 10^6/uL (4.1 -5.3) L 02/10/21 09:54 Hgb 11.9 g/dL (11.7-1 6.6) 02/10/21 09:54 Hct 34.4 % (42.0-52.0 ) L 02/10/21 09:54 MCV 88.9 fL (80-94) 02/10/21 09:54 MCH 30.7 pg (28.0-34. 0) 02/10/21 09:54 MCHC 34.6 g/dL (30.0-3 6.0) 02/10/21 09:54 RDW 13.5 % (12.1-15.1 ) 02/10/21 09:54 Plt Count 72 10^3/cmm (130- 400) L 02/10/21 09:54 MPV 12.4 fL (7.4-10.4 ) H 02/10/21 09:54 Gran % Cancelled 02/10/21 08:53 Neut % (Auto) Cancelled 02/10/21 08:53 Lymph % (Auto) Not Reportable 02/10/21 09:54 Garza % (Auto) Not Reportable 02/10/21 09:54 Eos % (Auto) Cancelled 02/10/21 08:53 Baso % (Auto) Cancelled 02/10/21 08:53 Neut # (Auto) Cancelled 02/10/21 08:53 Lymph # (Auto) Not Reportable 02/10/21 09:54 Garza # (Auto) Not Reportable 02/10/21 09:54 Eos # (Auto) Cancelled 02/10/21 08:53 Baso # (Auto) Cancelled 02/10/21 08:53 Absolute Gran (aut o) Cancelled 02/10/21 08:53 Nucleated RBC % (a uto) Cancelled 02/10/21 08:53 Total Counted 100 (0-100) 02/10/21 09:54 Atypical Lymphs % 0.0 % (0-5) 02/10/21 09:54 Absolute Neutrophi ls 7.3 10^3/cmm (1.4 -6.5) H 02/10/21 09:54 Segmented Neutroph ils 50 % 02/10/21 09:54 Abs Segm Neuts (Ma n) 4.2 10/cmm (1.6-7 .1) 02/10/21 09:54 Band Neutrophils 37.0 % 02/10/21 09:54 Abs Band Neuts (Ma n) 3.1 10^3/cmm (0.0 -1.2) H 02/10/21 09:54 Lymphocytes (Manua l) 8 % 02/10/21 09:54 Monocytes (Manual) 2.0 % 02/10/21 09:54 Absolute Monocytes 0.2 10^3/cmm (0.1 -0.6) 02/10/21 09:54 Eosinophils (Manua l) 3 % 02/10/21 09:54 Absolute Eosinophi ls 0.2 10^3/cmm (0.0 -0.7) 02/10/21 09:54 Basophils (Manual) 0.0 % 02/10/21 09:54 Absolute Basophils 0.0 10^3/cmm (0.0 -0.2) 02/10/21 09:54 Metamyelocytes 12.0 % 02/09/21 02:28 Nucleated RBCs # Cancelled 02/10/21 08:53 Dohle Bodies Trace 02/10/21 09:54 Platelet Estimate Decreased (Natalia l) 02/10/21 09:54 Giant Platelets Trace 02/10/21 09:54 Polychromasia 1+ H 02/09/21 02:28 Hypochromasia 1+ H 02/09/21 02:28 Poikilocytosis Trace 02/10/21 09:54 Anisocytosis Trace 02/10/21 09:54 PT 17.50 SECONDS (12 .1-14.9) H 02/10/21 05:21 INR 1.39 (0.8-1.2) H 02/10/21 05:21 D-Dimer 4.65 ug/mIFEU (0- 0.59) H 02/08/21 14:08 Specimen Type Arterial 02/10/21 14:16 Sample Site Radial, right 02/10/21 14:16 ABG pH 7.16 (7.35-7.45) L* 02/10/21 14:16 ABG pCO2 50.1 mmHg (35-45) H 02/10/21 14:16 ABG pO2 67.8 mmHg (80.0-1 00.0) L 02/10/21 14:16 ABG HCO3 17.7 mmol/L (22-2 6) L 02/10/21 14:16 ABG O2 Saturation 94.6 02/08/21 22:20 ABG Base Excess -11.0 mmol/L (-2. 0-2.0) L 02/10/21 14:16 Triston Test Pos 02/10/21 14:16 A-a O2 Gradient 5.7 mmHg (5-10) 02/08/21 22:20 Hematocrit 38.5 % (42-52) L 02/10/21 14:16 Hgb O2 Saturation 93.7 % (95-100) L 02/08/21 22:20 Carboxyhemoglobin 0.5 %THgb (0.4-20 .1) 02/08/21 22:20 Methemoglobin 0.5 % (0.4-1.5) 02/08/21 22:20 Total Hemoglobin 12.8 g/dL (14-18) L 02/08/21 22:20 Sodium 126.0 mmol/L (131 -143) L 02/08/21 22:20 Potassium 3.9 mmol/L (3.5-5 .0) 02/08/21 22:20 Glucose 135.0 mg/dL (70-1 15) H 02/08/21 22:20 Ionized Calcium 1.1 mmol/L (1.1-1 .4) 02/08/21 22:20 O2 Delivery Device Vent 02/10/21 14:16 Mechanical Rate 14.0 02/10/21 04:20 FiO2 75.0 % 02/10/21 14:16 Tidal Volume 0.45 02/10/21 14:16 PEEP 8.0 cmH20 02/10/21 14:16 Electric Freight Car Operator ID jmn 02/10/21 14:16 Sodium 124 mmol/L (136-1 45) L 02/10/21 05:21 Potassium 4.1 mmol/L (3.5-5 .1) 02/10/21 05:21 Chloride 89 mmol/L (98-107 ) L 02/10/21 05:21 Carbon Dioxide 18 mmol/L (22-29) L 02/10/21 05:21 Anion Gap 21.1 (5-19) H 02/10/21 05:21 BUN 85 mg/dL (8-23) H* 02/10/21 05:21 Creatinine 4.1 mg/dL (0.7-1. 2) H 02/10/21 05:21 GFR Calculation Not Reportable 02/10/21 05:21 Glucose 149 mg/dL (65-115 ) H 02/10/21 05:21 POC Glucose 166 mg/dL (70-110 ) H 02/10/21 11:10 Calculated Osmolal ity 287 mOsm/kg (285- 295) 02/10/21 05:21 Lactic Acid 3.8 mmol/L (0.5-2 .2) H 02/09/21 02:28 Lactic Acid (Sepsi s) 3.0 mmol/L (0.5-2 .2) H 02/09/21 07:34 Lactate 3.0 mmol/L (0.5-2 .2) H 02/10/21 05:21 Calcium 7.0 mg/dL (8.5-10 .5) L 02/10/21 05:21 Phosphorus 6.2 mg/dL (2.5-4. 5) H 02/10/21 05:21 Magnesium 2.1 mg/dL (1.7-2. 3) 02/10/21 05:21 Total Bilirubin 3.0 mg/dL (0.15-1 .2) H 02/10/21 05:21 AST 49 U/L (0-40) H 02/10/21 05:21 ALT 32 U/L (0-41) 02/10/21 05:21 Alkaline Phosphata se 78 IU/L (40-130) 02/10/21 05:21 Creatine Kinase 482 U/L (39-308) H* 02/10/21 05:21 Troponin T Gen 5 n g/L 74 ng/L (0-15) H 02/09/21 02:28 Troponin T Baselin e 54 ng/L (0-15) H 02/08/21 13:32 Troponin T 120 Min maria fernanda 48.95 ng/L (0-15) H 02/08/21 15:18 Delta Troponin T -5.05 ABS# (0-10) L 02/08/21 15:18 Troponin T Hi Sens 6Hr 51.76 ng/L (0-15) H 02/08/21 19:50 Troponin T Hi Sens 6Hr Delta -2.24 ng/L (0-12) L 02/08/21 19:50 C-Reactive Protein 345.6 mg/L (0.0-4 .9) H 02/10/21 05:21 NT-Pro-B Natriuret Pep 11976 pg/mL (0-45 0) H 02/10/21 05:21 Total Protein 5.6 g/dL (6.6-8.7 ) L 02/10/21 05:21 Albumin 2.3 g/dL (3.5-5.2 ) L 02/10/21 05:21 Globulin 3.3 g/dL (1.3-4.6 ) 02/10/21 05:21 Procalcitonin 30.09 ng/mL (0-0. 5) H 02/10/21 05:21 TSH 0.91 uIU/mL (0.27 -4.20) 02/08/21 19:50 Urine Color Yellow (Yellow) 02/08/21 18:15 Urine Appearance Hazy (CLEAR) A 02/08/21 18:15 Urine pH 5 (5-7) 02/08/21 18:15 Ur Specific Gravit y 1.020 (1.005-1.0 30) 02/08/21 18:15 Urine Protein Neg (Negative) 02/08/21 18:15 Urine Glucose (UA) Norm (Normal) 02/08/21 18:15 Urine Ketones Negative (Negati ve) 02/08/21 18:15 Urine Blood 2+ (Negative) H 02/08/21 18:15 Urine Nitrate Negative (Negati ve) 02/08/21 18:15 Urine Bilirubin 1+ (Negative) H 02/08/21 18:15 Urine Urobilinogen 1 mg/dL (Negative ) H 02/08/21 18:15 Ur Leukocyte Zeynep ase Negative (Negati ve) 02/08/21 18:15 Urine RBC 0-4 /hpf (0-2) H 02/08/21 18:15 Urine WBC 10-15 /hpf (0-5) H 02/08/21 18:15 Ur Squamous Epith Cells 0-4 /hpf (0-5) H 02/08/21 18:15 Amorphous Sediment Not Reportable 02/08/21 18:15 Urine Bacteria 3+ /hpf (NONE) H 02/08/21 18:15 Hyaline Casts 5-10 /lpf H 02/08/21 18:15 Ur Random Sodium 24 mmol/L 02/10/21 11:31 Ur Random Potassiu m 65 mmol/L 02/10/21 11:31 Influenza Type A A g Negative (Negati ve) 02/08/21 23:30 Influenza Type B A g Negative (Negati ve) 02/08/21 23:30 SARS-CoV-2 Ag (Rap id) Negative (Negati ve) 02/08/21 15:[address] 02/08/21 12:58 Impression: Mild cerebral atrophy and lacunar infarcts. Wrist X-Ray 02/08/21 13:58 Impression: Negative right wrist. Chest/Abdomen/Pelvis CT 02/08/21 15:11 IMPRESSION: 1. No acute pulmonary infiltrates. Lungs are well aerated. Subsegmental atelectasis in the lung bases. 2. No free fluid in the abdomen or pelvis. 3. Perinephric edema can be seen with renal insufficiency. 4. No free fluid or fluid collections in the abdomen or pelvis. 5. Sigmoid diverticulosis. No evidence of acute diverticulitis. 6. No acute findings in the chest abdomen or pelvis. Chest X-Ray 02/10/21 11:34 IMPRESSION: Bilateral lower lung atelectasis versus pneumonia. Vitals: Last Vital Signs Temp 98.9 F 02/10/21 12:00 Pulse 87 02/10/21 15:23 Resp 25 H 02/10/21 15:19 BP 98/61 02/10/21 12:00 Pulse Ox 95 02/10/21 15:19 TS Medications Medications Home Medications amlodipine 10 mg tablet 10 mg PO DAILY@72902/08/20 [History Confirmed 02/08/21] atenolol 100 mg-chlorthalidone 25 mg tablet See Rx Instructions PO DAILY 02/08/20 [History Confirmed 02/08/21] furosemide 40 mg tablet 40 mg PO DAILY@72902/08/20 [History Confirmed 02/08/21] levothyroxine 175 mcg capsule 175 mcg PO DAILY@72902/08/20 [History Confirmed 02/08/21] losartan 50 mg tablet 50 mg PO DAILY@0700 02/08/20 [History Confirmed 02/08/21] metformin 1,000 mg tablet 1,000 mg PO BID@0730,2100 02/08/20 [History Confirmed 02/08/21] niacin 250 mg tablet,extended release 250 mg PO DAILY@72902/08/20 [History Confirmed 02/08/21] nitroglycerin 0.4 mg sublingual tablet 0.4 mg SUBLINGUAL Q5M PRN 02/08/20 [History Confirmed 02/08/21] pantoprazole 20 mg tablet,delayed release 20 mg PO DAILY@72902/08/20 [History Confirmed 02/08/21] propafenone 150 mg tablet 150 mg PO TID@0730,1230,1930 02/08/20 [History Confirmed 02/08/21] terazosin 5 mg capsule 5 mg PO DAILY@72902/08/20 [History Confirmed 02/08/21] diphenhydramine-acetaminophen [Tylenol PM Extra Strength] 1 tab PO Q4H PRN 02/08/21 [History Confirmed 02/08/21] ondansetron 4 mg PO TID PRN 02/08/21 [History Confirmed 02/08/21] potassium chloride 10 meq PO DAILY@0730 02/08/21 [History Confirmed 02/08/21] rivaroxaban [Xarelto] 20 mg PO DAILY@0730 02/08/21 [History Confirmed 02/08/21] Active Medications Acetaminophen (Acetaminophen 325 Mg Tablet) 650 mg PO Q6H PRN PRN Reason: MILD PAIN Last Admin: 02/08/21 23:36 Dose: 650 mg Documented by: Albuterol/Ipratropium (Ipratropium-Albuterol 3 Ml Neb) 3 ml INHALATION Q4H.RESPIRATORY SANDRA Last Admin: 02/10/21 15:10 Dose: 3 ml Documented by: Dextrose (Dextrose 50% Syringe 50 Ml) 25 ml IVP ONCE PRN; Protocol PRN Reason: hypoglycemia protocol Dextrose (Dextrose 50% Syringe 50 Ml) 50 ml IVP PRN PRN; Protocol PRN Reason: hypoglycemia protocol Enoxaparin Sodium (Enoxaparin 100 Mg/Ml Syringe) 100 mg 1 mg/kg (100 mg) SUBCUT Q24H SANDRA Famotidine (Famotidine 20 Mg/2 Ml Inj) 20 mg IVP Q12H SANDRA Last Admin: 02/10/21 03:23 Dose: 20 mg Documented by: Glucagon (Glucagon 1 Mg/Ml Inj 1 Ml) 1 mg IM ONCE PRN; Protocol PRN Reason: Adult Acute Hypoglycemia Prot. Norepinephrine Bitartrate 4 mg (/ Dextrose) 254 mls @ 0 mls/hr IV .Q0M SANDRA; Protocol Last Titration: 02/10/21 15:02 Dose: 14 mcg/min, 53.3 mls/hr Documented by: Norepinephrine Bitartrate 8 mg (/ Dextrose) 508 mls @ 0 mls/hr IV .Q0M SANDRA; Protocol Last Titration: 02/09/21 20:30 Dose: 7 mcg/min, 26.7 mls/hr Documented by: Dextrose (D5w) 500 mls @ 100 mls/hr IV ONCE PRN; Protocol PRN Reason: Adult Acute Hypoglycemia Prot Imipenem/Cilastatin Sodium 250 (mg/ Sodium Chloride) 100 mls @ 200 mls/hr IV Q12H SANDRA; Protocol Last Admin: 02/10/21 13:42 Dose: 200 mls/hr Documented by: Vancomycin/PEG/NADA/Lysine/Water (Vancocin) 1,500 mg in 300 mls @ 200 mls/hr IV Q48H SANDRA Last Infusion: 02/09/21 00:38 Dose: Infused Documented by: Vasopressin 100 unit/ Sodium (Chloride) 100 mls @ 0 mls/hr IV .Q0M SANDRA; Protocol Last Admin: 02/09/21 22:49 Dose: 0.08 unit/min, 4.8 mls/hr Documented by: Fentanyl 1,000 mcg/ Sodium (Chloride) 100 mls @ 0 mls/hr IV .Q0M SANDRA; Protocol Last Titration: 02/10/21 15:02 Dose: 100 mcg/hr, 10 mls/hr Documented by: Propofol (Diprivan) 1,000 mg in 100 mls @ 0 mls/hr IV .Q0M SANDRA; Protocol Last Titration: 02/09/21 06:35 Dose: Infused Documented by: Dopamine HCl/Dextrose (Intropin Drip) 400 mg in 250 mls @ 17.25 mls/hr IV CONT SANDRA; Protocol Last Admin: 02/10/21 14:42 Dose: 10 mcg/kg/min, 34.5 mls/hr Documented by: Epinephrine HCl 2.5 mg/ Sodium (Chloride) 252.5 mls @ 0 mls/hr IV .Q0M SANDRA; Protocol Last Admin: 02/10/21 15:02 Dose: 2 mcg/min, 12.1 mls/hr Documented by: Dexmedetomidine HCl 400 mcg/ (Sodium Chloride) 104 mls @ 0 mls/hr IV .Q0M SANDRA; Protocol Last Titration: 02/09/21 09:00 Dose: 0 mcg/kg/hr, 0 mls/hr Documented by: Midazolam HCl 100 mg/ Sodium (Chloride) 100 mls @ 0 mls/hr IV .Q0M SANDRA; Protocol Last Titration: 02/10/21 15:02 Dose: 4 mg/hr, 4 mls/hr Documented by: Sodium Bicarbonate 100 meq/ (Sodium Chloride) 1,100 mls @ 100 mls/hr IV .Q11H SANDRA Last Admin: 02/10/21 14:46 Dose: 100 mls/hr Documented by: Epinephrine HCl 2.5 mg/ Sodium (Chloride) 252.5 mls @ 0 mls/hr IV .Q0M SANDRA; Protocol Insulin Aspart (Insulin Aspart 100 Unit/1 Ml) 0 unit SUBCUT WM&BEDTIME [facility]; Protocol Last Admin: 02/10/21 12:34 Dose: 2 unit Documented by: Levothyroxine Sodium (Levothyroxine 175 Mcg Tablet) 175 mcg PO DAILY@729 [facility] Last Admin: 02/10/21 06:30 Dose: 175 mcg Documented by: Lorazepam (Lorazepam 2 Mg/Ml Inj 1 Ml) 0.5 mg IVP Q6H PRN PRN Reason: ANXIETY Last Admin: 02/08/21 21:16 Dose: 0.5 mg Documented by: Morphine Sulfate (Morphine 4 Mg/Ml Sdv 1 Ml) 1 mg IVP Q4H PRN PRN Reason: SEVERE PAIN Last Admin: 02/08/21 21:14 Dose: 1 mg Documented by: Ondansetron HCl (Ondansetron 2 Mg/Ml Sdv 2 Ml) 4 mg IVP Q8H PRN PRN Reason: vomiting, or N/V if npo Propafenone HCl (Propafenone 150 Mg Tablet) 150 mg PO TID@0730,123,1929 [facility] Last Admin: 02/10/21 12:35 Dose: 150 mg Documented by: Discharge Plan Discharge Patient Disposition: Home Condition: Stable Prescriptions: No Action propafenone 150 mg tablet 150 mg PO TID@0730,1230,1930 RF: 0 amlodipine 10 mg tablet 10 mg PO DAILY@729 RF: 0 atenolol-chlorthalidone 100-25 mg tablet See Rx Instructions PO DAILY RF: 0 levothyroxine 175 mcg capsule 175 mcg PO DAILY@729 RF: 0 losartan 50 mg tablet 50 mg PO DAILY@0700 RF: 0 metformin 1,000 mg tablet 1,000 mg PO BID@07,2100 RF: 0 niacin [Slo-Niacin] 250 mg tablet extended release 250 mg PO DAILY@729 RF: 0 terazosin 5 mg capsule 5 mg PO DAILY@729 RF: 0 furosemide 40 mg tablet 40 mg PO DAILY@729 RF: 0 nitroglycerin [Nitrostat] 0.4 mg tablet, sublingual 0.4 mg SUBLINGUAL Q5M PRN (Reason: Chest Pain) RF: 0 pantoprazole 20 mg tablet,delayed release (DR/EC) 20 mg PO DAILY@729 RF: 0 Xarelto 20 mg tablet 20 mg PO DAILY@0730 RF: 0 potassium chloride 10 mEq capsule, extended release 10 meq PO DAILY@0730 RF: 0 Tylenol PM Extra Strength 25-500 mg Tablet 1 tab PO Q4H PRN (Reason: PAIN/SLEEP) RF: 0 ondansetron 4 mg tablet,disintegrating 4 mg PO TID PRN (Reason: NAUSEA/VOMITING) RF: 0 Discharge Orders: Discharge Order (Routine); Ordered 02/10/21 Ordered By: Claudia Bay Transfer Attestations Time Spent in Transfer Care*: critical care time Critical Care Time (min): 120 Quality Metrics Clinical Quality Measures: During this hospital stay, did patient experience: None Coding Level of Care Code 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
[2021-02-10 16:28] LABS: Urine Random Chloride 10 mmol/L
[2021-02-10 17:39] LABS: Glucose Point of Care 167 mg/dL (70-110)
[2021-02-10] MEDS: sodium bicarbonate 8.4% 1 mEq/mL 50mL Syr 100 MEQ IVP (18:26)
--- NOTE | 2021-02-10 18:33 | PC.NURSE ---
arangments made for air vac transfer to [facility] unable to flly due to weather. arrangemnets made to transfer to [facility] as unable to fly as would be 2 hr trip ground ambulance verses 4 hr with multiple pressors infusing. sara mcwilliams here report given and report to [facility] at this time . tranfered on all medications and vent settings
--- NOTE | 2021-04-06 02:19 | W.ED.GENADLT ---
HPI - General Adult General: Chief complaint: General Medical Stated complaint: WEAK/SENT BY PCP Time Seen by Provider: 02/08/21 12:53 [facility] PFSH: Medical History Anticoagulation adequate with anticoagulant therapy Xarelto Atrial fibrillation CHF (congestive heart failure) Diabetes 1.5, managed as type 2 Dyslipidemia HTN (hypertension) Family History Father Diabetes Social History Smoking and tobacco status: former smoker Household members: spouse Marital status: service: No Current occupational status: retired Procedures Central Line Placement Right IJ: Time Out Performed: Yes Patient Placed on Monitor/Pulse Ox: Yes MD Prep: mask, gown and gloves Central Line Prep: Chlorhexidine scrub and sterile drapes applied Local Anesthetic: lidocaine 1% Amount of anesthesia used (mL): 5 Ultrasound Used for Placement: Yes Central Line Lumen Inserted: triple Post Procedure: sutured in place, all ports aspirated, flushed, capped and sterile dressing applied Post Procedure X-Ray: tip of catheter in good position Patient Tolerated Procedure: well and no complications Intubation Time out performed: No sedative: Etomidate Mg Given: 20 paralytic: Succinylcholine Mg Given: 100 Laryngoscope: Miguel (4) ET Tube Size: 8 ET Tube Uncuffed: No Tube Secured Depth (cm): 22 Tube Secured Location: lips Tube Placement Confirmation: visualized tube passing through cords, equal breath sounds bilaterally, no breath sounds over epigastrium and confirmation by capnometry Patient Tolerated Procedure: well and no complications Intubation Complications: none Course Vital Signs: Vital signs: Vital Signs Temperature 98.9 F 02/10/21 18:28 Pulse Rate 83 02/10/21 18:28 Respiratory Rate 25 H 02/10/21 18:28 Blood Pressure 123/62 02/10/21 18:28 Pulse Oximetry 97 02/10/21 18:28 MDM - General Adult Lab Data: Labs: Lab Results 02/08/21 02/08/21 02/08/21 Range/Units 13:32 13:32 13:32 WBC 6.4 (4.0-10.0) 10^3/ uL RBC 3.79 L (4.1-5.3) 10^6/u L Hgb 11.7 (11.7-16.6) g/dL Hct 35.0 L (42.0-52.0) % MCV 92.3 (80-94) fL MCH 30.9 (28.0-34.0) pg MCHC 33.4 (30.0-36.0) g/dL RDW 13.3 (12.1-15.1) % Plt Count 161 (130-400) 10^3/c mm MPV 10.8 H (7.4-10.4) fL Neut % (Auto) 90.3 % Lymph % (Auto) 6.1 % [place] % (Auto) 1.6 % Eos % (Auto) 0.3 % Baso % (Auto) 0.9 % Neut # (Auto) 5.75 (1.8-7.7) 10^3/u L Lymph # (Auto) 0.4 L (0.8-4.8) 10^3/u L [place] # (Auto) 0.1 L (0.2-0.9) 10^3/u L Eos # (Auto) 0.0 (0.0-0.8) 10^3/u L Baso # (Auto) 0.1 (0.0-0.1) 10^3/u L Nucleated RBC % (a uto) 0 % Nucleated RBCs # 0.0 /100WBC D-Dimer (0-0.59) ug/mIFE U Sodium 128 L (136-145) mmol/L Potassium 4.4 (3.5-5.1) mmol/L Chloride 93 L (98-107) mmol/L Carbon Dioxide 18 L (22-29) mmol/L Anion Gap 21.4 H (5-19) BUN 55 H (8-23) mg/dL Creatinine 3.4 H (0.7-1.2) mg/dL GFR Calculation Not Reportable Glucose 225 H (65-115) mg/dL Calculated Osmolal ity 288 (285-295) mOsm/k g Lactate 4.5 H* (0.5-2.2) mmol/L Calcium 7.4 L (8.5-10.5) mg/dL Total Bilirubin 1.0 (0.15-1.2) mg/dL AST 32 (0-40) U/L ALT 20 (0-41) U/L Alkaline Phosphata se 78 (40-130) IU/L Creatine Kinase 462 H* (39-308) U/L Troponin T Baselin e (0-15) ng/L Troponin T 120 Min red devil (0-15) ng/L Delta Troponin T (0-10) ABS# NT-Pro-B Natriuret Pep 3988 H (0-450) pg/mL Total Protein 5.8 L (6.6-8.7) g/dL Albumin 3.2 L (3.5-5.2) g/dL Globulin 2.6 (1.3-4.6) g/dL SARS-CoV-2 Ag (Rap id) (Negative) 02/08/21 02/08/21 02/08/21 Range/Units 13:32 14:08 15:18 WBC (4.0-10.0) 10^3/ uL RBC (4.1-5.3) 10^6/u L Hgb (11.7-16.6) g/dL Hct (42.0-52.0) % MCV (80-94) fL MCH (28.0-34.0) pg MCHC (30.0-36.0) g/dL RDW (12.1-15.1) % Plt Count (130-400) 10^3/c mm MPV (7.4-10.4) fL Neut % (Auto) % Lymph % (Auto) % [place] % (Auto) % Eos % (Auto) % Baso % (Auto) % Neut # (Auto) (1.8-7.7) 10^3/u L Lymph # (Auto) (0.8-4.8) 10^3/u L [place] # (Auto) (0.2-0.9) 10^3/u L Eos # (Auto) (0.0-0.8) 10^3/u L Baso # (Auto) (0.0-0.1) 10^3/u L Nucleated RBC % (a uto) % Nucleated RBCs # /100WBC D-Dimer 4.65 H (0-0.59) ug/mIFE U Sodium (136-145) mmol/L Potassium (3.5-5.1) mmol/L Chloride (98-107) mmol/L Carbon Dioxide (22-29) mmol/L Anion Gap (5-19) BUN (8-23) mg/dL Creatinine (0.7-1.2) mg/dL GFR Calculation Glucose (65-115) mg/dL Calculated Osmolal ity (285-295) mOsm/k g Lactate (0.5-2.2) mmol/L Calcium (8.5-10.5) mg/dL Total Bilirubin (0.15-1.2) mg/dL AST (0-40) U/L ALT (0-41) U/L Alkaline Phosphata se (40-130) IU/L Creatine Kinase (39-308) U/L Troponin T Baselin e 54 H (0-15) ng/L Troponin T 120 Min red devil 48.95 H (0-15) ng/L Delta Troponin T -5.05 L (0-10) ABS# NT-Pro-B Natriuret Pep (0-450) pg/mL Total Protein (6.6-8.7) g/dL Albumin (3.5-5.2) g/dL Globulin (1.3-4.6) g/dL SARS-CoV-2 Ag (Rap id) (Negative) 02/08/21 Range/Units 15:50 WBC (4.0-10.0) 10^3/ uL RBC (4.1-5.3) 10^6/u L Hgb (11.7-16.6) g/dL Hct (42.0-52.0) % MCV (80-94) fL MCH (28.0-34.0) pg MCHC (30.0-36.0) g/dL RDW (12.1-15.1) % Plt Count (130-400) 10^3/c mm MPV (7.4-10.4) fL Neut % (Auto) % Lymph % (Auto) % [place] % (Auto) % Eos % (Auto) % Baso % (Auto) % Neut # (Auto) (1.8-7.7) 10^3/u L Lymph # (Auto) (0.8-4.8) 10^3/u L [place] # (Auto) (0.2-0.9) 10^3/u L Eos # (Auto) (0.0-0.8) 10^3/u L Baso # (Auto) (0.0-0.1) 10^3/u L Nucleated RBC % (a uto) % Nucleated RBCs # /100WBC D-Dimer (0-0.59) ug/mIFE U Sodium (136-145) mmol/L Potassium (3.5-5.1) mmol/L Chloride (98-107) mmol/L Carbon Dioxide (22-29) mmol/L Anion Gap (5-19) BUN (8-23) mg/dL Creatinine (0.7-1.2) mg/dL GFR Calculation Glucose (65-115) mg/dL Calculated Osmolal ity (285-295) mOsm/k g Lactate (0.5-2.2) mmol/L Calcium (8.5-10.5) mg/dL Total Bilirubin (0.15-1.2) mg/dL AST (0-40) U/L ALT (0-41) U/L Alkaline Phosphata se (40-130) IU/L Creatine Kinase (39-308) U/L Troponin T Baselin e (0-15) ng/L Troponin T 120 Min red devil (0-15) ng/L Delta Troponin T (0-10) ABS# NT-Pro-B Natriuret Pep (0-450) pg/mL Total Protein (6.6-8.7) g/dL Albumin (3.5-5.2) g/dL Globulin (1.3-4.6) g/dL SARS-CoV-2 Ag (Rap id) Negative (Negative) Discharge Plan Discharge Patient Disposition: Admitted As Inpatient Admit Provider: Claudia Bay Clinical Impression: Septic shock Condition: Stable Coding Level of Care Code ED Assistant Coach for Sheba Key
== END 2021-02-10 18:31 | disposition short-term general hospital (02) | DRG 871 ==
LOC: ER 16:01 → ICU 16:45
PROVIDERS: Family Medicine; Hospitalist; Admitting Provider Student in an Organized Health Care Education/Training Program; Emergency Provider Family Medicine; PCP Internal Medicine; Visit Provider Student in an Organized Health Care Education/Training Program
DX: A41.9 Sepsis, unspecified organism (principal); R65.21 Severe sepsis with septic shock; N17.0 Acute kidney failure with tubular necrosis; J96.01 Acute respiratory failure with hypoxia; J18.9 Pneumonia, unspecified organism; I48.11 Longstanding persistent atrial fibrillation; N39.0 Urinary tract infection, site not specified; E87.4 Mixed disorder of acid-base balance; I95.9 Hypotension, unspecified; I50.9 Heart failure, unspecified; I11.0 Hypertensive heart disease with heart failure; E11.9 Type 2 diabetes mellitus without complications; E78.5 Hyperlipidemia, unspecified; Z87.891 Personal history of nicotine dependence; Z79.01 Long term (current) use of anticoagulants; E83.42 Hypomagnesemia; E03.9 Hypothyroidism, unspecified; B95.0 Streptococcus, group A, as the cause of diseases classified elsewhere
CPT/HCPCS: 31500; 36415; 36416; 36556; 36592; 36600; 51702; 70450; 71045; 71250; 73100; 74176; 80051; 80053; 81001; 82330; 82436; 82550; 82803; 82805; 82962; 83605; 83735; 83880; 84100; 84133; 84145; 84300; 84443; 84484; 85007; 85025; 85378; 85610; 86140; 87040; 87077; 87086; 87186; 87205; 87426; 87804; 93005; 93306; 93970; 94002; 94003; 94640; 94660; 94799; 96365; 96366; 96367; 96372; 96375; 99291; 99292; A4570; J0171; J0330; J0696; J0743; J1265; J1720; J1815; J1940; J1956; J2060; J2250; J2270; J2405; J2704; J3010; J3370; J3475; J3490; J7030; J7050

== ENCOUNTER 2022-03-28 03:49 | Inpatient (IN) | payer MEDICARE, SELFPAY ==
[2022-03-28] VITALS (18 sets, daily range): BP systolic 103–136; BP diastolic 51–75; PULSE 81–113; RESP 15–31; TEMP 36.9–37.4; O2SAT 89–95; BMI 25.8; BMI 27.7
--- NOTE | 2022-03-28 03:55 | XRR_ITS ---
PROCEDURE INFORMATION: Exam: XR Chest Exam date and time: 03/28/2022 4:03 AM Age: 81 years old Clinical indication: Shortness of breath; Patient HX: C/O worsening SOB. Recent pneumonia. History of chf. TECHNIQUE: Imaging protocol: XR of the chest. Views: 1 view. COMPARISON: CR XR chest 2V* [id number] 03/21/2022 8:35 AM FINDINGS: Lungs: There are hazy and linear opacities present in the lower hemithoraces bilaterally and within the mid right hemithorax, findings suggesting a bilateral patchy interstitial pneumonia. Pleural spaces: Unremarkable. No pleural effusion. No pneumothorax. Heart/Mediastinum: Unremarkable. No cardiomegaly. Bones/joints: Unremarkable. XR/XR chest 1V portable [id number] IMPRESSION: Hazy and linear opacities in the lower hemithoraces bilaterally within the right mid hemithorax, findings that may represent a patchy bilateral interstitial pneumonia.
--- NOTE | 2022-03-28 03:55 | ECG_ITS ---
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 Measurements Intervals [place] Rate: 108 P: 35 IL: 213 QRS: -43 QRSD: 125 T: 54 QT: 315 QTc: 422 Interpretive Statements SINUS TACHYCARDIA WITH FIRST DEGREE AV BLOCK LEFT AXIS DEVIATION [QRS AXIS < -30] POSSIBLE ANTERIOR MYOCARDIAL INFARCTION , OF INDETERMINATE AGE [30 ms Q WAVE IN V3/V4, OR R < 0.2 mV IN V4] Compared to ECG 02/09/2021 00:58:29 First degree AV block now present Left-axis deviation now present Sinus rhythm no longer present Myocardial infarct finding still present Electronically Signed On 03-28-2022 20:33:07 CDT by Yasmin Rosas M.D. [id number]
--- NOTE | 2022-03-28 04:11 | W.ED.SOB ---
HPI - SOB/Dyspnea General: Chief Complaint: Shortness of Breath/Dyspnea Stated Complaint: SOB Time Seen by Provider: 03/28/22 03:50 Source: patient Mode of arrival: ambulatory Limitations: no limitations History of Present Illness: HPI Narrative: 81-year-old male who states that the last 2 weeks has been having increasing cough and shortness of breath. He states that over the last 2 to 3 days his cough has worsened and he is getting more dyspneic. He is requiring 2 L oxygen here denies any vomiting diarrhea denies any chest pain denies any fevers. Associated symptoms: Reports chest pain; Deny abdominal pain, fever(s), nausea or vomiting Review of Systems Const: Denies: fever(s), chills, body aches or change in appetite Eyes: Denies: blurry vision or eye discomfort ENMT: Denies: throat pain or dental pain Card: Reports: chest pain Resp: Reports: dyspnea and non-productive cough GI: Denies: abdominal pain, nausea, vomiting or diarrhea : Denies: dysuria Musc: Denies: neck pain or back pain Skin/Breast: Denies: rash Neuro: Denies: headache(s) Psych: Denies: depression Cisco/Lymph: Denies: easy bruising All/Imm: Denies: urticaria PFSH ED PFSH: Medical History (Updated 03/28/22 @ 05:01 by Fina Vargas MD) Anticoagulation adequate with anticoagulant therapy Xarelto Atrial fibrillation CHF (congestive heart failure) Diabetes 1.5, managed as type 2 Dyslipidemia HTN (hypertension) Family History Father Diabetes Social History Smoking and tobacco status: former smoker Household members: spouse Marital status: service: No Current occupational status: retired Physical Exam Const: COMMON NORMALS: patient oriented x3 and healthy appearing GENERAL APPEARANCE: in distress HENMT: COMMON NORMALS: normocephalic and atraumatic HEAD & SCALP: normocephalic and atraumatic Eye: COMMON NORMALS: Equal, round and reactive pupils present and EOMs intact bilaterally PUPIL: Yes Equal, round and reactive pupils present Neck/C-Spine: COMMON NORMALS: full ROM and supple Chest: COMMONS NORMALS: normal inspection of the chest and normal palpation of entire chest wall Resp: COMMON NORMALS: No retractions and No use of accessory muscles EFFORT & INSPECTION: Yes respiratory distress AUSCULTATION: rales on the right OTHER: rll rales Cardio: COMMON NORMALS: regular rate, regular rhythm and No murmurs present (Cardio) RATE: regular rate RHYTHM: regular rhythm GI: COMMON NORMALS: Normal to inspection, nondistended, normoactive bowel sounds present, Soft to palpation, non-tender and no masses PALPATION: Yes Soft to palpation Extremity: COMMON NORMALS: normal to inspection and full ROM Neuro: COMMON NORMALS: patient oriented x3, moves all extremities and no focal motor deficits Psych: COMMON NORMALS: mental status grossly normal, Normal thought process present and cooperative THOUGHT PROCESS: Normal thought process present Skin: COMMON NORMALS: no rashes or lesions noted and no wounds GENERAL SKIN EXAM: no rashes or lesions noted Course Vital Signs: Vital signs: Vital Signs Temperature 98.5 F 03/28/22 03:54 Pulse Rate 113 H 03/28/22 03:54 Respiratory Rate 21 H 03/28/22 03:54 Blood Pressure 103/72 03/28/22 03:54 Pulse Oximetry 89 L 03/28/22 03:54 MDM - SOB/Dyspnea Medical Decision Making Patient presents here with a right lower lobe pneumonia he is requiring 2 L of oxygen here and has an elevated white count patient's blood pressure here has been stable start him on IV antibiotics I spoke to hospitalist and will admit at this time. Lab Data : 03/28/22 04:08 03/28/22 04:08 Labs/Radiology: Laboratory Results WBC 27.9 10^3/uL (4.0-10.0) H 03/28/22 04:08 RBC 4.01 10^6/uL (4.1-5.3) L 03/28/22 04:08 Hgb 11.5 g/dL (11.7-16.6) L 03/28/22 04:08 Hct 34.9 % (42.0-52.0) L 03/28/22 04:08 MCV 87.0 fl (80-94) 03/28/22 04:08 MCH 28.7 pg (28.0-34.0) 03/28/22 04:08 MCHC 33.0 g/dL (30.0-36.0) 03/28/22 04:08 RDW 15.2 % (12.1-15.1) H 03/28/22 04:08 Plt Count 334 10^3/cmm (130-400) 03/28/22 04:08 MPV 9.7 fL (7.4-10.4) 03/28/22 04:08 Neut % (Auto) 86.1 % 03/28/22 04:08 Lymph % (Auto) 9.6 % 03/28/22 04:08 [place] % (Auto) 1.4 % 03/28/22 04:08 Eos % (Auto) 0.8 % 03/28/22 04:08 Baso % (Auto) 0.3 % 03/28/22 04:08 Neut # (Auto) 24.00 10^3/uL (1.8-7.7) H 03/28/22 04:08 Lymph # (Auto) 2.7 10^3/uL (0.8-4.8) 03/28/22 04:08 [place] # (Auto) 0.4 10^3/uL (0.2-0.9) 03/28/22 04:08 Eos # (Auto) 0.2 10^3/uL (0.0-0.8) 03/28/22 04:08 Baso # (Auto) 0.1 10^3/uL (0.0-0.1) 03/28/22 04:08 Nucleated RBC % (auto) 0 % 03/28/22 04:08 Nucleated RBCs # 0.0 /100WBC 03/28/22 04:08 PT 22.40 SECONDS (12.1-14.9) H 03/28/22 04:08 INR 1.92 (0.8-1.2) H 03/28/22 04:08 Potassium 3.7 mmol/L (3.5-5.1) 03/28/22 04:08 Carbon Dioxide 22 mmol/L (22-29) 03/28/22 04:08 Anion Gap 16.7 (5-19) 03/28/22 04:08 GFR Calculation Not Reportable 03/28/22 04:08 Total Bilirubin 0.9 mg/dL (0.15-1.2) 03/28/22 04:08 AST 19 U/L (0-40) 03/28/22 04:08 ALT 20 U/L (0-41) 03/28/22 04:08 Total Protein 6.6 g/dL (6.6-8.7) 03/28/22 04:08 Globulin 4.0 g/dL (1.3-4.6) 03/28/22 04:08 Influenza Type A Ag Negative (Negative) 03/28/22 04:09 Influenza Type B Ag Negative (Negative) 03/28/22 04:09 EKG Data EKG 1: I personally reviewed and interpreted this EKG as follows: EKG Interpretation Date: 03/28/22 EKG interpretation time: 04:00 Interpretation: sinus tach hr [address] or t wave abnormalitie qrs 125 qtc 378 Discharge Plan Discharge Patient Disposition: Admitted As Inpatient Clinical Impression: Community acquired pneumonia, Acute respiratory failure with hypoxia Condition: Stable Prescriptions: No Action Xarelto 20 mg tablet 20 mg PO DAILY@0730 Qty: 90 3RF levothyroxine 175 mcg capsule 175 mcg PO DAILY@0730 0RF losartan 50 mg tablet 50 mg PO DAILY@0700 0RF terazosin 5 mg capsule 5 mg PO DAILY@0730 0RF nitroglycerin [Nitrostat] 0.4 mg tablet, sublingual 0.4 mg SUBLINGUAL Q5M PRN (Reason: Chest Pain) 0RF pantoprazole 20 mg tablet,delayed release (DR/EC) 20 mg PO DAILY@0730 0RF amlodipine 10 mg tablet 5 mg PO DAILY@0730 0RF furosemide 40 mg tablet 20 mg PO DAILY@0730 0RF propafenone 150 mg tablet 150 mg PO TID@0730,1230,1930 Qty: 180 6RF potassium chloride 10 mEq capsule, extended release 10 meq PO DAILY@0730 0RF Tylenol PM Extra Strength 25-500 mg Tablet 1 tab PO Q4H PRN (Reason: PAIN/SLEEP) 0RF Referrals: vAtar Ngo DO [Primary Care Provider] - Coding Level of Care Code ED Communications Maintainer for Chg Fwd Exam Comprehensive
[2022-03-28 04:18] LABS: Basophils # 0.1 10^3/uL (0.0-0.1); Basophils % 0.3 %; Eosinophils # 0.2 10^3/uL (0.0-0.8); Eosinophils % 0.8 %; Hematocrit 34.9 % (42.0-52.0); Hemoglobin 11.5 g/dL (11.7-16.6); Lymphocytes # 2.7 10^3/uL (0.8-4.8); Lymphocytes % 9.6 %; Mean Corpuscular Hemoglobin 28.7 pg (28.0-34.0); Mean Platelet Volume 9.7 fL (7.4-10.4); Monocytes # 0.4 10^3/uL (0.2-0.9); Monocytes % 1.4 %; Neutrophils % 86.1 %; Nucleated Red Blood Cells % 0 %; Platelet Count 334 10^3/cmm (130-400); Red Blood Count 4.01 10^6/uL (4.1-5.3); Red Cell Distribution Width 15.2 % (12.1-15.1); White Blood Count 27.9 10^3/uL (4.0-10.0)
[2022-03-28] MEDS: cefTRIAXone 1,000 MG in sodium chloride 0.9% (plus) 50 ML 100 MG IV (04:37)
[2022-03-28 04:38] LABS: Influenza A by IFA Negative (Negative); Influenza B by IFA Negative (Negative)
[2022-03-28 04:41] LABS: Troponin(5th) Baseline 29 ng/L (0-15)
[2022-03-28 04:42] LABS: INR 1.92 (0.8-1.2)
[2022-03-28 04:46] LABS: Alanine Aminotransferase 20 U/L (0-41); Albumin Level 2.6 g/dL (3.5-5.2); Alkaline Phosphatase 142 IU/L (40-130); Anion Gap 16.7 (5-19); Aspartate Amino Transferase 19 U/L (0-40); Blood Urea Nitrogen 33 mg/dL (8-23); Calcium 7.7 mg/dL (8.5-10.5); Carbon Dioxide 22 mmol/L (22-29); Chloride 93 mmol/L (98-107); Glucose 214 mg/dL (65-115); NT Pro B Type Natriuretic Pept 1937 pg/mL (0-450); Osmolality Calculated 280 mOsm/kg (285-295); Potassium 3.7 mmol/L (3.5-5.1); Sodium 128 mmol/L (136-145); Total Bilirubin 0.9 mg/dL (0.15-1.2); Total Protein 6.6 g/dL (6.6-8.7)
[2022-03-28 05:10] LABS: Lactic Sepsis W/Reflex 1.1 mmol/L (0.5-2.2)
--- NOTE | 2022-03-28 05:30 | PM.HP ---
Providers/Chief Complaint Admitting Physician: Mary Ramires MD Primary Care Provider: Avtar Ngo DO Chief Complaint: SOB History of Present Illness Sheng Bernstein is a 81 year old male with h/o atrial fib on xarelto, HTN and CKD who presents to ED with dyspnea and fatigue. Patient has been ill for a few days. Has had cough and BELL. No chest pain. Appetite diminished. Has some chills. No nausea or vomiting. Evaluation in ED is significant for WBC of 27,000 and RLL infiltrate on CXR- patient started on IV rocephin and supplemental oxygen and admitted for further management Review of Systems General: Reports: 10 or more systems reviewed and unremarkable except in HPI and below Eyes: Denies: change in vision, blurry vision or eye discomfort ENMT: Denies: throat pain, hoarseness or oral sores Card: Denies: chest pain or palpitations Resp: Reports: dyspnea and productive cough; Denies: wheezing or hemoptysis GI: Denies: abdominal pain, nausea, vomiting, diarrhea or constipation Musc: Denies: neck pain or back pain Skin/Breast: Denies: rash or pruritus Neuro: Denies: headache(s), numbness in extremities, weakness in extremities, lack of coordination or difficulty walking Psych: Denies: anxiety or depression Endo: Reports: tired all the time; Denies: polyuria or polydipsia Cisco/Lymph: Denies: easy bruising or easy bleeding Medications/Allergies Home Medications Medication Instructions Recorded Confirmed Last Taken Type levothyroxine 175 mcg capsule 175 mcg PO DAILY@0702/08/20 09/25/21 02/08/21 History losartan 50 mg tablet 50 mg PO DAILY@0700 02/08/20 09/25/21 02/08/21 History nitroglycerin 0.4 mg sublingual 0.4 mg SUBLINGUAL Q5M PRN 02/08/20 09/25/21 02/08/21 History tablet (Nitrostat) pantoprazole 20 mg tablet,delayed 20 mg PO DAILY@72902/08/20 09/25/21 02/08/21 History release terazosin 5 mg capsule 5 mg PO DAILY@0730 02/08/20 09/25/21 02/08/21 History diphenhydramine 25 1 tab PO Q4H PRN 02/08/21 09/25/2121 History mg-acetaminophen 500 mg tablet (Tylenol PM Extra Strength) potassium chloride 10 mEq 10 meq PO DAILY@0730 02/08/21 09/25/21 02/08/21 History capsule,extended release amlodipine 10 mg tablet 5 mg PO DAILY@0730 tab 03/27/21 09/25/21 Unknown History propafenone 150 mg tablet 150 mg PO TID@0730,1230,1930 #180 07/30/21 09/25/21 Unknown Rx tab rivaroxaban 20 mg tablet (Xarelto) 20 mg PO DAILY@0730 #90 tab 08/27/21 09/25/21 Unknown Rx furosemide 40 mg tablet 20 mg PO DAILY@0730 tab 09/25/21 09/25/21 Unknown History Allergies Allergy/AdvReac Type Severity Reaction Status Date / Time Penicillins Allergy Severe ADR/ALGY-Pa Verified 09/25/21 15:03 lpitations PFSH Acute PFSH: Medical History (Updated 03/28/22 @ 05:39 by Mary Ramires MD) Anticoagulation adequate with anticoagulant therapy Xarelto Atrial fibrillation CHF (congestive heart failure) Diabetes 1.5, managed as type 2 Dyslipidemia HTN (hypertension) Family History Father Diabetes Social History Smoking and tobacco status: former smoker Household members: spouse Marital status: service: No Current occupational status: retired Vitals/I&O/Wt Last Vital Signs Temp 98.5 F 03/28/22 03:54 Pulse 113 H 03/28/22 03:54 Resp 21 H 03/28/22 03:54 BP 103/72 03/28/22 03:54 Pulse Ox 89 L 03/28/22 03:54 Weight last 48 hrs Weight 79.379 kg Physical Exam Const: COMMON NORMALS: no acute distress and patient oriented x3 HENMT: COMMON NORMALS: normocephalic and atraumatic Neck/C-Spine: COMMON NORMALS: full ROM, no lymphadenopathy and no meningeal signs Chest: CHEST: Yes Symmetrical chest wall rise Resp: AUSCULTATION: rhonchi and diminished lung sounds Cardio: RHYTHM: abnormal rhythm HEART SOUNDS: S1 normal heart sound present and S2 normal heart sound present GI: PALPATION: Yes Soft to palpation, No Tenderness to palpation present (GI), No Guarding due to palpation present (GI) and No No hepatosplenomegaly present Extremity: GENERAL: No clubbing, No cyanosis and No edema Neuro: COMMON NORMALS: patient oriented x3, moves all extremities, no focal motor deficits and no sensory deficits noted Psych: APPEARANCE: Yes grossly normal ATTITUDE: Yes calm SPEECH: Yes normal speech MOOD & AFFECT: Yes euthymic mood ATTENTION/CONCENTRATION: Yes attention grossly intact Skin: GENERAL SKIN EXAM: no rashes or lesions noted and turgor normal Data : 03/28/22 04:08 03/28/22 04:08 A&P Assessment and plan (1) Community acquired pneumonia: Patient is 81 year oold male who presents with dyspnea and leukocytosis. Noted to be mildly hypoxic and started on supplemental oxygen WBC 27,000 CXR with right sided infiltrate- official read pending Blood cultures obtained IV rocephin and zithromax Monitor closely Status: Acute Qualifiers: Laterality: right Lung location: lower lobe of lung Qualified Code(s): J18.9 - Pneumonia, unspecified organism (2) Acute respiratory failure with hypoxia: Secondary to above. Status: Acute (3) HTN (hypertension): Resume amlodipine Status: Acute (4) Atrial fibrillation: Resume xarelto and propafenone- meds need to be verified by nursing Status: Acute Qualifiers: Atrial fibrillation type: longstanding persistent Qualified Code(s): I48.11 - Longstanding persistent atrial fibrillation (5) Hyponatremia: Mild hyponatremia- sodium 128. Renal function stable- serum creatinine 2.1 Monitor Status: Acute Attestations Medical Necessity Statement*: Anticipated stay greater than 2 midnights in patient with acute resp failure, pneumonia, leukocytosis requiring supplemental oxygen, IV antibiotics and close monitoring Coding Level of Care Code Acute President Celebrity Acquistion for Chg Fwd History Detailed Exam Detailed Medical Decision Making Moderate Complexity Diagnoses Community acquired pneumonia J18.9 Laterality: right Lung location: lower lobe of lung Acute respiratory failure with hypoxia J96.01 HTN (hypertension) I10 Atrial fibrillation I48.11 Atrial fibrillation type: longstanding persistent Hyponatremia E87.1
[2022-03-28] MEDS: azithromycin 500 MG in sodium chloride 0.9% 250 ML 250 MG IV (05:38)
--- NOTE | 2022-03-28 05:55 | ECG_ITS ---
[facility] Test Date: 2022-03-28 Pat Name: Sheng Bernstein Department: Room: 250 Gender: Male News Reel Cameraman: : 1940 Requested By: Fina Vargas Order Number: [id number] Reva MD: Yasmin Rosas M.D. Measurements Intervals [place] Rate: 103 P: 26 VT: 238 QRS: -42 QRSD: 125 T: 62 QT: 329 QTc: 431 Interpretive Statements SINUS TACHYCARDIA WITH FIRST DEGREE AV BLOCK LEFT AXIS DEVIATION [QRS AXIS < -30] POSSIBLE LEFT VENTRICULAR HYPERTROPHY [VOLTAGE CRITERIA PLUS LAE OR QRS WIDENING] POSSIBLE ANTERIOR MYOCARDIAL INFARCTION , OF INDETERMINATE AGE [30 ms Q WAVE IN V3/V4, OR R < 0.2 mV IN V4] Compared to ECG 03/28/2022 04:00:54 No significant changes Electronically Signed On 03-28-2022 20:57:13 CDT by Yasmin Rosas M.D. [id number]
[2022-03-28 06:22] LABS: Glucose Point of Care 175 mg/dL (70-110)
--- NOTE | 2022-03-28 06:28 | PC.NURSE ---
Patient arrived to floor via cart accompanied by ED RN. Patient able to ambulate from cart to bed with one assist, states he does not use a walker at home, gait somewhat unsteady. Reports productive cough with greenish sputum at times. Dyspnea with exertion noted, resolved with rest. Patient currently on 2L via nasal cannula with sats >90%, patient reports he does not currently use oxygen at home but that he has in the past, all other vs stable. Accucheck done, blood glucose 175. No skin issues noted. IV to left antecubital infusing azithromycin that was initiated in ED. Patient has no complaints of discomfort and is alert and oriented x4. Family is at the bedside.
[2022-03-28] MEDS: FUROsemide 20 mg Tablet PO (06:36)
[2022-03-28] MEDS: pantoprazole DR 40 mg Tablet PO (06:36)
[2022-03-28] MEDS: amlodipine 5 mg Tablet PO (06:36)
[2022-03-28] MEDS: levothyroxine 175 mcg Tablet PO (06:36)
[2022-03-28] MEDS: rivaroxaban 10 mg Tablet 20 MG PO (06:36)
[2022-03-28] MEDS: propafenone 150 mg Tablet PO ×3 (06:36→19:28)
[2022-03-28] MEDS: potassium chloride ER 10 mEq Tablet PO (06:36)
--- NOTE | 2022-03-28 06:38 | PC.NURSE ---
Patient states he is too exhausted to get out of bed at this time, states he hasn't gotten to sleep all night because he was in the emergency room.
[2022-03-28 07:07] LABS: Troponin 5 2HR 29.32 ng/L (0-15)
[2022-03-28 07:10] LABS: Troponin 5 2HR Delta 0.32 ABS# (0-10)
--- NOTE | 2022-03-28 08:17 | PC.PHAR ---
PT STATES HE TAKES CARE OF HIS OWN MEDICATIONS-PT STATES HE FINISHED HIS PREDNISONE 20MG TAKE 40MG DAILY FOR 5 DAYS FILLED 03/21/22 PT STATES HE FINISHED Thursday03/25/22
--- NOTE | 2022-03-28 10:31 | PC.CHAP ---
Pastoral Care Encounter/Spiritual Assessment Type of Contact [] Declined hot end operator visit [] Patient/Family/Request visit [] Outpatient visit [] Follow-up visit [] Physician referral [] Code/Alert [x] Routine visit [] Staff referral [] Actively dying [] Patient sleeping [] Family support [] [] Out of room [] Palliative care [] [] Receiving care in room [] Pre-surgical visit [] Trauma [] Long length of stay [] ICU visit [] Other: Relational/Emotional Strength [x] Patient feels connected with others/family/visitors/staff [] Distress [] Loneliness/isolation [] Abandonment Spirituality of Patient [x] Person of Ana M [x] Attends Evangelical of their Ana M [x] Believes in Prayer [] Reads Bible or Hinduism materials [] There are Spiritual issues to be addressed Postal Worker Interventions [x] Prayer [x] Active listening [x] Non-anxious presence [] Spiritual/emotional support [] Crisis/trauma care [] Spiritual counseling [] Bereavement support [] Provided bereavement packet [] Provided Bible/devotional materials [] Provided toy/stuffed animal, coloring book to patient or family member [] Provided Communion [] Anointing/[place] [] Salvation [x] Completed spiritual assessment [] Other: Impact on Illness or Injury [] Angry [] Fearful [] Anxious [] Often cries [] Exhaustion [] Unable to work [] Unable to attend restorationism [] Unable to walk/stand [] Unable to read [] Unable to drive [] Unable to eat/drink [] Unable to sleep [] Unable to be with family [] Patient intubated [] Other: Summary Time spent with patient 10 min
[2022-03-28 10:54] LABS: Troponin 5 6HR 28.86 ng/L (0-15)
[2022-03-28 10:57] LABS: Troponin 5 6HR Delta -0.14 ng/L (0-12)
--- NOTE | 2022-03-28 10:58 | CT_ITS ---
WS: [id number] CT CHEST WITHOUT INTRAVENOUS CONTRAST HISTORY: pneumonia TECHNIQUE: Contiguous 5 mm axial imaging performed on the thorax. Coronal and sagittal reformats are submitted. All CT scans at [facility] use at least one of these dose optimization techniques: automated exposure control; mA and/or kV adjustment per patient size (includes targeted exams where dose is matched to clinical indication); or iterative reconstruction. CONTRAST: None DLP: 803.04 mGy.cm COMPARISON: 03/28/[address] 02/08/2021 Lungs and central airway: Lung volumes are decreased due to poor inspiration. Focal area of dense con solidation in the RIGHT lower lobe and a more subsegmental consolidation and opacification RIGHT uppe r lobe along the fissure. Middle lobe is clear. Additional multifocal subsegmental area of consolidat ion in the posterior LEFT lower lobe. Mild diffuse interstitial thickening. Pleura: Normal. No pleural effusion. Heart and pericardium: Moderate cardiomegaly. No effusion. Mediastinum and madai: Small mediastinal and hilar lymph nodes are present. These lymph nodes are diff icult to evaluate without IV contrast. There are several mediastinal and hilar lymph nodes measuring just over 10 mm in size at the AP window. There may be an additional lymph node group along the poste rior LEFT hilum. Vessels: Atherosclerosis aorta with no aneurysm. Pulmonary artery size equal to the aorta. Chest wall and lower neck: No soft tissue masses. Upper abdomen: Moderate-sized hiatal hernia. Hepatic and splenic granulomata. No adrenal mass. Osseous structures: Increase in the thoracic kyphosis. No destructive bone lesions. CT/CT chest wo con [id number] IMPRESSION: 1. New multifocal, bilateral pulmonary opacifications likely pneumonia. The mo st dense consolidation at the RIGHT lung base. 2. Mild interstitial edema. 3. Cardiomegaly. 4. Indeterminate lymph nodes in the mediastinum and hilum are probably reactiv e. These lymph nodes have increased in size and number since 02/08/2021. 5. Moderate size hiatal hernia.
--- NOTE | 2022-03-28 11:16 | PM.MISC ---
Miscellaneous Note Purpose of Documentation: Mini progress note Note: Patient seen this patient states he feels a little bit better compared to when he first got here. He has received IV antibiotics. He states that for the last couple of days he has not taken his Lasix. Overall his CHF has been stable but he does carry that diagnosis. He is not feeling any more short of breath than what he was at home. Right now appears comfortable. He is on 2 L nasal cannula. He states that he has had pneumonia before. Daughter also states that patient was transferred to higher level care facility last time because he had septic shock. DuoNebs ordered. Sputum gram stain culture ordered. Blood cultures ordered. MRSA nares ordered. Urine culture ordered. Continue ceftriaxone and azithromycin. Patient received Lasix 20 mg oral this morning. I will give him another Lasix 20 IV right now. Starting tomorrow he will be on Lasix 40 daily. Patient does have bilateral bibasilar crackles. Trace pitting edema bilateral lower extremities. All questions were answered to patient and family satisfaction. There was also discussion done regarding patient's CODE STATUS with family present in the room. Patient will be a full code.
[2022-03-28] MEDS: FUROsemide 10 mg/mL SDV 2mL 20 MG IVP (11:32)
[2022-03-28 11:35] LABS: Procalcitonin 2.93 ng/mL (0-0.5)
[2022-03-28] MEDS: ipratropium-albuterol 3 mL Neb INHALATION ×3 (11:43→20:48)
[2022-03-28 16:07] LABS: Urine Random Sodium 40 mmol/L
[2022-03-29] VITALS (18 sets, daily range): BP systolic 118–129; BP diastolic 62–68; PULSE 65–89; RESP 16–20; TEMP 36.6–36.8; O2SAT 91–96
[2022-03-29] MEDS: ipratropium-albuterol 3 mL Neb INHALATION ×6 (00:30→23:02)
[2022-03-29] MEDS: cefTRIAXone 1,000 MG in sodium chloride 0.9% (plus) 50 ML 100 MG IV (03:56)
--- NOTE | 2022-03-29 05:02 | NUR.SHIFT ---
Uneventful shift for patient. Rested in bed, oriented when alert. No complaints of pain made. IV in left antecubital used to infuse antibiotics. Up [place] in room using walker without distress. Continent and voids via toilet. Remains on 2L via nasal cannula with sats >90%
[2022-03-29 05:24] LABS: Basophils % 0.2 %; Eosinophils # 0.7 10^3/uL (0.0-0.8); Hematocrit 29.9 % (42.0-52.0); Hemoglobin 9.7 g/dL (11.7-16.6); Lymphocytes % 17.8 %; Mean Corpuscular HGB Conc 32.4 g/dL (30.0-36.0); Mean Corpuscular Hemoglobin 28.7 pg (28.0-34.0); Mean Corpuscular Volume 88.5 fl (80-94); Mean Platelet Volume 9.8 fL (7.4-10.4); Monocytes # 0.4 10^3/uL (0.2-0.9); Monocytes % 2.6 %; Neutrophils # 12.54 10^3/uL (1.8-7.7); Neutrophils % 74.5 %; Nucleated Red Blood Cells % 0 %; Platelet Count 292 10^3/cmm (130-400); Red Blood Count 3.38 10^6/uL (4.1-5.3); Red Cell Distribution Width 15.6 % (12.1-15.1); White Blood Count 16.8 10^3/uL (4.0-10.0)
[2022-03-29] MEDS: azithromycin 500 MG in sodium chloride 0.9% 250 ML 250 MG IV (05:26)
[2022-03-29 05:44] LABS: Anion Gap 16.4 (5-19); Blood Urea Nitrogen 33 mg/dL (8-23); Calcium 7.4 mg/dL (8.5-10.5); Carbon Dioxide 22 mmol/L (22-29); Chloride 97 mmol/L (98-107); Glucose 151 mg/dL (65-115); Osmolality Calculated 284 mOsm/kg (285-295); Potassium 3.4 mmol/L (3.5-5.1); Sodium 132 mmol/L (136-145)
[2022-03-29] MEDS: potassium chloride ER 10 mEq Tablet PO (06:32)
[2022-03-29] MEDS: FUROsemide 40 mg Tablet PO (06:32)
[2022-03-29] MEDS: levothyroxine 175 mcg Tablet PO (06:32)
[2022-03-29] MEDS: pantoprazole DR 40 mg Tablet PO (06:32)
[2022-03-29] MEDS: amlodipine 5 mg Tablet PO (06:32)
[2022-03-29] MEDS: rivaroxaban 10 mg Tablet 20 MG PO (06:32)
[2022-03-29] MEDS: propafenone 150 mg Tablet PO ×3 (06:32→18:48)
--- NOTE | 2022-03-29 08:48 | PM.PN ---
Subjective Subjective: Seen this AM. at bedside. WBC trending down and clinically patient getting better. His shortness of breath has improved. Vitals/I&O/Wt Last Vital Signs Temp 98.0 F 03/29/22 07:10 Pulse 76 03/29/22 08:00 Resp 18 03/29/22 08:00 BP 122/65 03/29/22 07:10 Pulse Ox 93 03/29/22 08:00 03/28/22 03/29/22 03/29/22 22:59 06:59 14:59 Intake Total 640 / 640 780 / 1420 Output Total 100 / 625 Balance 540 / 15 780 / 795 Weight last 48 hrs Weight 82.781 kg Weight 79.379 kg Physical Exam Narrative: General: Alert oriented x3, patient seen laying in bed on 2L NC HEENT: Normocephalic, atraumatic, EOMI, breathing normally Cardio: Regular rate rhythm, normal S1-S2, no murmurs Respiratory: Fair bilateral air entry, mild crackles bibasilar, mild ronchi throughout but much improved compared to yesterday. GI: Abdomen soft, nontender, nondistended, bowel sounds + Behavior: Appropriate and cooperative Extremities: Trace edema, no cyanosis Data : 03/29/22 05:03 03/29/22 05:03 Micro: Microbiology 03/28/22 14:30 Gram Stain - Final Sputum - Expectorated Sputum 03/28/22 15:10 Bacterial Antigens - Final Urine,Voided 03/28/22 10:00 Blood Culture - Preliminary Blood SPECIMEN COLLECTED 03/28/22 10:02 Blood Culture - Preliminary Blood SPECIMEN COLLECTED A&P Assessment and plan (1) Community acquired pneumonia: Status: Acute Qualifiers: Laterality: right Lung location: lower lobe of lung Qualified Code(s): J18.9 - Pneumonia, unspecified organism (2) Acute respiratory failure with hypoxia: Status: Acute (3) Atrial fibrillation: Status: Acute Qualifiers: Atrial fibrillation type: longstanding persistent Qualified Code(s): I48.11 - Longstanding persistent atrial fibrillation (4) Hyponatremia: Status: Acute (5) HTN (hypertension): Status: Acute (6) YASMEEN (acute kidney injury): Status: Acute (7) Acute respiratory failure with hypoxia: Status: Acute (8) Anticoagulation adequate with anticoagulant therapy: Status: Acute (9) Dyslipidemia: Status: Acute (10) CHF (congestive heart failure): Status: Acute Qualifiers: Heart failure type: unspecified Heart failure chronicity: unspecified Qualified Code(s): I50.9 - Heart failure, unspecified Plan #Community acquired pneumonia #Acute respiratory failure with hypoxia #HTN #Atrial fibrillation #Hyponatremia - Continue ceftriaxone and azithromycin - BCx NTD - Continue lasix - Duoneb as needed - Continue all other home medications Full Code Attestations Medical Necessity Statement*: 24 -48 hour stay pending clinical improvement. Coding Level of Care Code Acute International Trade Analyst for [facility] Fwd Diagnoses Community acquired pneumonia J18.9 Laterality: right Lung location: lower lobe of lung Acute respiratory failure with hypoxia J96.01 Atrial fibrillation I48.11 Atrial fibrillation type: longstanding persistent Hyponatremia E87.1 HTN (hypertension) I10 YASMEEN (acute kidney injury) N17.9 Acute respiratory failure with hypoxia J96.01 Anticoagulation adequate with anticoagulant therapy Z79.01 Dyslipidemia E78.5 CHF (congestive heart failure) I50.9 Heart failure type: unspecified Heart failure chronicity: unspecified
[2022-03-30] VITALS (10 sets, daily range): BP systolic 135–144; BP diastolic 67–75; PULSE 65–80; RESP 17–20; TEMP 36.4–36.8; O2SAT 88–98
[2022-03-30] MEDS: ipratropium-albuterol 3 mL Neb INHALATION ×3 (03:29→11:30)
[2022-03-30] MEDS: cefTRIAXone 1,000 MG in sodium chloride 0.9% (plus) 50 ML 100 MG IV (04:20)
[2022-03-30] MEDS: azithromycin 500 MG in sodium chloride 0.9% 250 ML 250 MG IV (05:08)
[2022-03-30 05:09] LABS: Basophils % 0.3 %; Eosinophils # 0.6 10^3/uL (0.0-0.8); Eosinophils % 5.9 %; Hematocrit 31.5 % (42.0-52.0); Hemoglobin 10.2 g/dL (11.7-16.6); Lymphocytes # 2.4 10^3/uL (0.8-4.8); Lymphocytes % 25.3 %; Mean Corpuscular HGB Conc 32.4 g/dL (30.0-36.0); Mean Corpuscular Hemoglobin 28.8 pg (28.0-34.0); Mean Platelet Volume 10.1 fL (7.4-10.4); Monocytes # 0.3 10^3/uL (0.2-0.9); Monocytes % 3.3 %; Neutrophils # 6.24 10^3/uL (1.8-7.7); Neutrophils % 64.7 %; Nucleated Red Blood Cells % 0 %; Platelet Count 359 10^3/cmm (130-400); Red Blood Count 3.54 10^6/uL (4.1-5.3); Red Cell Distribution Width 15.6 % (12.1-15.1); White Blood Count 9.7 10^3/uL (4.0-10.0)
[2022-03-30 05:26] LABS: Anion Gap 13.4 (5-19); Blood Urea Nitrogen 33 mg/dL (8-23); Calcium 7.3 mg/dL (8.5-10.5); Carbon Dioxide 24 mmol/L (22-29); Chloride 99 mmol/L (98-107); Glucose 199 mg/dL (65-115); Osmolality Calculated 289 mOsm/kg (285-295); Potassium 3.4 mmol/L (3.5-5.1); Sodium 133 mmol/L (136-145)
[2022-03-30] MEDS: amlodipine 5 mg Tablet PO (06:32)
[2022-03-30] MEDS: potassium chloride ER 10 mEq Tablet PO (06:32)
[2022-03-30] MEDS: levothyroxine 175 mcg Tablet PO (06:32)
[2022-03-30] MEDS: FUROsemide 40 mg Tablet PO (06:32)
[2022-03-30] MEDS: pantoprazole DR 40 mg Tablet PO (06:32)
[2022-03-30] MEDS: propafenone 150 mg Tablet PO (06:32)
[2022-03-30] MEDS: rivaroxaban 10 mg Tablet 20 MG PO (06:32)
--- NOTE | 2022-03-30 11:38 | P.DS_ITS ---
Discharge Providers Date of Admission: 03/28/22 04:58 Date of Discharge: March 30, 2022 Attending Provider at Admission: Mary Ramires MD Attending Provider at Discharge: Ellyn Caruso MD Primary Care Provider: Avtar Ngo DO Diagnoses at Discharge Discharge Diagnosis (1) Community acquired pneumonia: Status: Acute Qualifiers: Laterality: right Lung location: lower lobe of lung Qualified Code(s): J18.9 - Pneumonia, unspecified organism (2) Acute respiratory failure with hypoxia: Status: Resolved (3) Atrial fibrillation: Status: Acute Qualifiers: Atrial fibrillation type: longstanding persistent Qualified Code(s): I48.11 - Longstanding persistent atrial fibrillation (4) Hyponatremia: Status: Acute (5) HTN (hypertension): Status: Acute (6) YASMEEN (acute kidney injury): Status: Acute (7) Acute respiratory failure with hypoxia: Status: Acute (8) Anticoagulation adequate with anticoagulant therapy: Status: Resolved Permanent problem details: Xarelto (9) Dyslipidemia: Status: Acute (10) CHF (congestive heart failure): Status: Acute Qualifiers: Heart failure chronicity: unspecified Heart failure type: unspecified Qualified Code(s): I50.9 - Heart failure, unspecified Reason for Visit Reason for Visit: SOB Brief History: HPI as per Dr. Ramires Sheng Bernstein is a 81 year old male with h/o atrial fib on xarelto, HTN and CKD who presents to ED with dyspnea and fatigue. Patient has been ill for a few days. Has had cough and BELL. No chest pain. Appetite diminished. Has some chills. No nausea or vomiting. Evaluation in ED is significant for WBC of 27,000 and RLL infiltrate on CXR- patient started on IV rocephin and supplemental oxygen and admitted for further management Hospital Course Hospital Course Patient was admitted for community-acquired pneumonia. He was treated with ceftriaxone azithromycin. Patient also was slightly fluid overloaded because he had not taken his Lasix at home. He was diuresed in the hospital. Day of discharge he felt very close baseline and felt a lot better compared to when he first came in. At discharge she was given cefdinir and azithromycin. Home oxygen was back to baseline. All questions answered. Patient was discharged home in a stable condition to follow-up with his primary care doctor. Physical Exam Narrative: General: Alert oriented x3, patient seen laying in bed on 2L NC HEENT: Normocephalic, atraumatic, EOMI, breathing normally Cardio: Regular rate rhythm, normal S1-S2, no murmurs Respiratory: Fair bilateral air entry, clear to auscultation bilaterally GI: Abdomen soft, nontender, bowel sounds + Behavior: Appropriate and cooperative Extremities: Trace edema, no cyanosis Discharge Data Studies Completed and Pending Completed Studies During Hospitalization Category Date Time Status CT chest wo con [id number] Routine Cat Scan 03/28/22 10:58 Completed XR chest 1V portable [id number] Stat Exams 03/28/22 03:55 Completed Pending at discharge Category Date Time Status Blood Culture Stat Lab 03/28/22 10:00 Results Radiology Impressions Chest X-Ray 03/28/22 03:55 IMPRESSION: Hazy and linear opacities in the lower hemithoraces bilaterally within the right mid hemithorax, findings that may represent a patchy bilateral interstitial pneumonia. Chest CT 03/28/22 10:58 IMPRESSION: 1. New multifocal, bilateral pulmonary opacifications likely pneumonia. The most dense consolidation at the RIGHT lung base. 2. Mild interstitial edema. 3. Cardiomegaly. 4. Indeterminate lymph nodes in the mediastinum and hilum are probably reactive. These lymph nodes have increased in size and number since 02/08/2021. 5. Moderate size hiatal hernia. Laboratory Results WBC 9.7 10^3/uL (4.0-10.0) 03/30/22 04:08 RBC 3.54 10^6/uL (4.1-5.3) L 03/30/22 04:08 Hgb 10.2 g/dL (11.7-16.6) L 03/30/22 04:08 Hct 31.5 % (42.0-52.0) L 03/30/22 04:08 MCV 89.0 fl (80-94) 03/30/22 04:08 MCH 28.8 pg (28.0-34.0) 03/30/22 04:08 MCHC 32.4 g/dL (30.0-36.0) 03/30/22 04:08 RDW 15.6 % (12.1-15.1) H 03/30/22 04:08 Plt Count 359 10^3/cmm (130-400) 03/30/22 04:08 MPV 10.1 fL (7.4-10.4) 03/30/22 04:08 Neut % (Auto) 64.7 % 03/30/22 04:08 Lymph % (Auto) 25.3 % 03/30/22 04:08 [place] % (Auto) 3.3 % 03/30/22 04:08 Eos % (Auto) 5.9 % 03/30/22 04:08 Baso % (Auto) 0.3 % 03/30/22 04:08 Neut # (Auto) 6.24 10^3/uL (1.8-7.7) 03/30/22 04:08 Lymph # (Auto) 2.4 10^3/uL (0.8-4.8) 03/30/22 04:08 [place] # (Auto) 0.3 10^3/uL (0.2-0.9) 03/30/22 04:08 Eos # (Auto) 0.6 10^3/uL (0.0-0.8) 03/30/22 04:08 Baso # (Auto) 0.0 10^3/uL (0.0-0.1) 03/30/22 04:08 Nucleated RBC % (auto) 0 % 03/30/22 04:08 Nucleated RBCs # 0.0 /100WBC 03/30/22 04:08 PT 22.40 SECONDS (12.1-14.9) H 03/28/22 04:08 INR 1.92 (0.8-1.2) H 03/28/22 04:08 Sodium 133 mmol/L (136-145) L 03/30/22 04:08 Potassium 3.4 mmol/L (3.5-5.1) L 03/30/22 04:08 Chloride 99 mmol/L (98-107) 03/30/22 04:08 Carbon Dioxide 24 mmol/L (22-29) 03/30/22 04:08 Anion Gap 13.4 (5-19) 03/30/22 04:08 BUN 33 mg/dL (8-23) H 03/30/22 04:08 Creatinine 1.8 mg/dL (0.7-1.2) H 03/30/22 04:08 GFR Calculation Not Reportable 03/30/22 04:08 Glucose 199 mg/dL (65-115) H 03/30/22 04:08 POC Glucose 175 mg/dL (70-110) H 03/28/22 06:18 Calculated Osmolality 289 mOsm/kg (285-295) 03/30/22 04:08 Lactic Acid 1.1 mmol/L (0.5-2.2) 03/28/22 04:40 Calcium 7.3 mg/dL (8.5-10.5) L 03/30/22 04:08 Magnesium 2.0 mg/dL (1.7-2.3) 03/29/22 05:03 Total Bilirubin 0.9 mg/dL (0.15-1.2) 03/28/22 04:08 AST 19 U/L (0-40) 03/28/22 04:08 ALT 20 U/L (0-41) 03/28/22 04:08 Alkaline Phosphatase 142 IU/L (40-130) H 03/28/22 04:08 Troponin T Baseline 29 ng/L (0-15) H 03/28/22 04:08 Troponin T 120 Minute 29.32 ng/L (0-15) H 03/28/22 06:33 Delta Troponin T 0.32 ABS# (0-10) 03/28/22 06:33 Troponin T Hi Sens 6Hr 28.86 ng/L (0-15) H 03/28/22 10:00 Troponin T Hi Sens 6Hr Delta -0.14 ng/L (0-12) L 03/28/22 10:00 NT-Pro-B Natriuret Pep 1937 pg/mL (0-450) H 03/28/22 04:08 Total Protein 6.6 g/dL (6.6-8.7) 03/28/22 04:08 Albumin 2.6 g/dL (3.5-5.2) L 03/28/22 04:08 Globulin 4.0 g/dL (1.3-4.6) 03/28/22 04:08 Procalcitonin 2.93 ng/mL (0-0.5) H 03/28/22 10:00 Ur Random Sodium 40 mmol/L 03/28/22 15:10 Influenza Type A Ag Negative (Negative) 03/28/22 04:09 Influenza Type B Ag Negative (Negative) 03/28/22 04:09 Vitals Last Vital Signs Temp 97.5 F L 03/30/22 07:08 Pulse 65 03/30/22 11:36 Resp 20 H 03/30/22 11:31 BP 135/75 03/30/22 07:08 Pulse Ox 93 03/30/22 11:31 Discharge Plan Discharge Patient Disposition: Home Condition: Stable Prescriptions: New cefdinir 300 mg capsule 300 mg PO BID 5 Days Qty: 10 0RF azithromycin 500 mg tablet 500 mg PO DAILY 5 Days Qty: 5 0RF Continued Xarelto 20 mg tablet 20 mg PO DAILY@0730 Qty: 90 3RF losartan 50 mg tablet 50 mg PO DAILY@0700 0RF terazosin 5 mg capsule 5 mg PO BEDTIME 0RF nitroglycerin [Nitrostat] 0.4 mg tablet, sublingual 0.4 mg SUBLINGUAL Q5M PRN (Reason: Chest Pain) 0RF amlodipine 10 mg tablet 10 mg PO DAILY@0730 0RF furosemide 40 mg tablet 40 mg PO DAILY@0730 0RF potassium chloride 10 mEq capsule, extended release 10 meq PO DAILY@0730 0RF diphenhydramine-acetaminophen [Tylenol PM Extra Strength] 25-500 mg Tablet 2 tab PO BEDTIME 0RF Euthyrox 175 mcg tablet 175 mcg PO BEDTIME 0RF albuterol sulfate 90 mcg/actuation Hfa Aerosol Inhaler 2 puff INHALATION QID PRN (Reason: Shortness Of Breath) 0RF Prilosec OTC 20 mg Tablet,Delayed Release (Dr/Ec) 20 mg PO QAM 0RF Changed propafenone 150 mg tablet 150 mg PO TID Qty: 0 0RF Discharge Orders: Discharge Order (Routine); Ordered 03/30/22 Ordered By: Ellyn Caruso Other Ambulatory Orders: DME: Oxygen (Order) Location: None Selected Ordered By: Ellyn Caruso Referrals: [facility] [Outside] (Please call [facility] for your oxygen if you need to contact them. They do have your information and will be contacting you as well. Thank you.) Avtar Ngo, DO [Primary Care Provider] - 4-7 days (Please call Dr. Ngo's Office to schedule a follow up appointment or if you have any questions or concerns. Thank you.) Discharge Diet: Cardiac Discharge Activity: Increase activity as tolerated and Oxygen as instructed Patient Instructions: Azithromycin (By mouth), Cefdinir (By mouth), Community Acquired Pneumonia (DC), Opioid Safety, Pneumonia Stoplight Discharge Attestations Time Spent in Discharge Care*: other Quality Metrics Clinical Quality Measures [ No reported AMI, CVA or VTE this stay] Coding Level of Care Code Acute Chg FW DC note Diagnoses Community acquired pneumonia J18.9 Laterality: right Lung location: lower lobe of lung Acute respiratory failure with hypoxia J96.01 Atrial fibrillation I48.11 Atrial fibrillation type: longstanding persistent Hyponatremia E87.1 HTN (hypertension) I10 YASMEEN (acute kidney injury) N17.9 Acute respiratory failure with hypoxia J96.01 Anticoagulation adequate with anticoagulant therapy Z79.01 Dyslipidemia E78.5 CHF (congestive heart failure) I50.9 Heart failure chronicity: unspecified Heart failure type: unspecified
--- NOTE | 2022-03-30 12:54 | PC.NURSE ---
discharge instructions given and explained.pt and spouse verb understanding of instructions.discharged to exit via w/c at this time.spouse to drive pt home.
== END 2022-03-30 12:57 | disposition home or self-care (01) | DRG 193 ==
LOC: ER 05:01 → MEDSURG 05:10
PROVIDERS: Admitting Provider Internal Medicine; Emergency Provider Emergency Medicine; PCP Internal Medicine; Visit Provider Internal Medicine
DX: J18.9 Pneumonia, unspecified organism (principal); J96.01 Acute respiratory failure with hypoxia; I48.11 Longstanding persistent atrial fibrillation; E87.1 Hypo-osmolality and hyponatremia; N17.9 Acute kidney failure, unspecified; Z79.01 Long term (current) use of anticoagulants; I50.9 Heart failure, unspecified; I11.0 Hypertensive heart disease with heart failure; N18.9 Chronic kidney disease, unspecified; Z87.891 Personal history of nicotine dependence; E78.5 Hyperlipidemia, unspecified
CPT/HCPCS: 12345; 36415; 36416; 71045; 71250; 80048; 80053; 82962; 83605; 83735; 83880; 84145; 84300; 84484; 85025; 85610; 86403; 87040; 87070; 87086; 87205; 87641; 87804; 93005; 94640; 96365; 96367; 99285; J0456; J0696; J1940; J7050

== ENCOUNTER → 2022-06-10 15:25 | Outpatient (BNVA) | payer MEDICARE, SELFPAY | PROVIDERS: PCP Internal Medicine; Visit Provider Internal Medicine | DX: I11.0 Hypertensive heart disease with heart failure (principal); I50.9 Heart failure, unspecified; E13.9 Other specified diabetes mellitus without complications; Z79.84 Long term (current) use of oral hypoglycemic drugs; I48.11 Longstanding persistent atrial fibrillation; Z79.01 Long term (current) use of anticoagulants; E78.5 Hyperlipidemia, unspecified | CPT/HCPCS: 99213 ==

== ENCOUNTER → 2023-03-10 12:55 | Outpatient (BNVA) | payer MEDICARE, SELFPAY | PROVIDERS: PCP Internal Medicine; Visit Provider Internal Medicine | DX: I11.0 Hypertensive heart disease with heart failure (principal); I50.9 Heart failure, unspecified; Z79.01 Long term (current) use of anticoagulants; E13.9 Other specified diabetes mellitus without complications; I48.11 Longstanding persistent atrial fibrillation; E78.5 Hyperlipidemia, unspecified; Z87.891 Personal history of nicotine dependence | CPT/HCPCS: 99214 ==

== ENCOUNTER 2023-10-14 11:44 | Inpatient (IN) | payer MEDICARE, SELFPAY ==
[2023-10-14] VITALS (11 sets, daily range): BP systolic 118–161; BP diastolic 54–69; PULSE 75–87; RESP 16–22; TEMP 36.7–37.4; O2SAT 76–93; BMI 26.2
--- NOTE | 2023-10-14 11:55 | XR_ITS ---
WS: [id number] Exam: XR chest 1V portable [id number] Date/Time of Exam: 10/14/2023 11:55 AM Reason For Exam: dyspnea Comparison 04/14/2022. The lungs are fully expanded. No acute infiltrates. Mild cardiac enlargement unchanged. No pleural ef fusions. The mediastinum is normal in contour. Bony structures are intact. IMPRESSION: 1. Mild cardiac enlargement with LEFT ventricular prominence. No change. 2. No acute process.
--- NOTE | 2023-10-14 12:03 | ECG_ITS ---
[facility] Test Date: 2023-10-14 Pat Name: Sheng Bernstein Department: Room: Gender: Male Circulation Assistant: : 1940 Requested By: Timmy Almonte Order Number: [id number] Ardon MD: Dimitri Schroeder M.D. Measurements Intervals [place] Rate: 84 P: 39 AK: 245 QRS: -77 QRSD: 142 T: 70 QT: 369 QTc: 436 Interpretive Statements SINUS RHYTHM WITH FIRST DEGREE AV BLOCK LEFT AXIS DEVIATION [QRS AXIS < -30] INTRAVENTRICULAR CONDUCTION DELAY [130+ ms QRS DURATION] Compared to ECG 03/28/2022 06:22:42 Intraventricular conduction delay now present Sinus tachycardia no longer present Myocardial infarct finding no longer present Electronically Signed On 10-14-2023 15:11:39 TRUCK TRAILER MECHANIC by Dimitri Schroeder M.D. [email or web address]
--- NOTE | 2023-10-14 12:15 | W.ED.SOB ---
HPI - SOB/Dyspnea General: Chief Complaint: Shortness of Breath/Dyspnea Stated Complaint: sob, low O2 Time Seen by Provider: 10/14/23 11:51 History of Present Illness: HPI Narrative: Patient presents to the ER with complaints of shortness of breath and low O2. Upon arrival on room air patient was 76% oxygen saturation. Patient denies having any history of COPD but does verbalize CHF and is on Lasix. Patient states the last several times he has been in the ER they sent him home on oxygen but he never wears it and just send it back. Patient was placed on 2 L of oxygen per nasal cannula and his sats increased to the low 90s. Patient does have had some nausea vomiting on Thursday and been dry heaving since then. Patient denies any fevers chills coughs etc. Review of Systems General: Reports: 10 or more systems reviewed and unremarkable except in HPI and below PFSH ED PFSH: Medical History (Updated 10/14/23 @ 15:57 by Timmy Almonte DO) Anticoagulation adequate with anticoagulant therapy Xarelto Atrial fibrillation CHF (congestive heart failure) Diabetes 1.5, managed as type 2 Dyslipidemia HTN (hypertension) Family History Father Diabetes Social History Smoking and tobacco/nicotine status: former use of tobacco/nicotine Household members: spouse Marital status: service: No Current occupational status: retired Physical Exam Const: COMMON NORMALS: no acute distress, average body habitus, patient oriented x3, no limitations, healthy appearing, alert and well nourished HENMT: COMMON NORMALS: normocephalic, atraumatic, hearing grossly normal bilaterally, external ears normal, Normal external nose present, moist oral mucous membranes and oropharynx normal HEAD & SCALP: normocephalic and atraumatic NOSE: Normal external nose present EXTERNAL EAR: Yes external ears normal Eye: COMMON NORMALS: Equal, round and reactive pupils present, EOMs intact bilaterally, conjunctivae normal and no scleral icterus CONJUNCTIVA: Yes conjunctivae normal PUPIL: Yes Equal, round and reactive pupils present Neck/C-Spine: COMMON NORMALS: full ROM, no lymphadenopathy, supple, no meningeal signs and no JVD Chest: COMMONS NORMALS: normal inspection of the chest and normal palpation of entire chest wall Resp: COMMON NORMALS: normal respiratory effort, No retractions and No use of accessory muscles; negative for clear to auscultation bilaterally (Occasional diffuse wheeze) AUSCULTATION: not clear to auscultation bilaterally (Occasional diffuse wheeze) Cardio: COMMON NORMALS: no JVD, regular rate, regular rhythm, S1 normal heart sound present, S2 normal heart sound present, No gallops present (Cardio), No clicks present (Cardio), No murmurs present (Cardio) and No rub (Cardio) RATE: regular rate RHYTHM: regular rhythm HEART SOUNDS: S1 normal heart sound present and S2 normal heart sound present GI: COMMON NORMALS: Normal to inspection, nondistended, normoactive bowel sounds present, Soft to palpation, non-tender, No hepatosplenomegaly present and no masses PALPATION: Yes Soft to palpation and Yes No hepatosplenomegaly present : COMMON NORMALS: Yes no CVA tenderness BLADDER/KIDNEY EXAM: Yes no CVA tenderness Back/Pelvis: COMMON NORMALS: no CVA tenderness Extremity: NARRATIVE EXTREMITY EXAM: Negative bilateral lower extremity edema Neuro: COMMON NORMALS: patient oriented x3 SENSORIUM/ORIENTATION: Yes alert MENINGEAL SIGNS: Yes no meningeal signs Course Vital Signs: Vital signs: Vital Signs Temperature 98.0 F 10/14/23 11:49 Pulse Rate 86 10/14/23 12:36 Respiratory Rate 20 H 10/14/23 12:28 Blood Pressure 129/63 10/14/23 11:49 Pulse Oximetry 91 10/14/23 12:28 Oxygen Delivery Me thod Nasal Cannula 10/14/23 12:28 Oxygen Flow Rate 3 10/14/23 12:28 MDM - SOB/Dyspnea Medical Decision Making patient presented with O2 sat on room air of 76%. Patient's been short of breath for several days as well as having nausea vomiting. Patient was immediately placed on and had increased up to 4 L to keep his O2 sat in the mid 90s. Chest x-ray was obtained as well as blood work and CT scan that showed patchy bilateral infiltrates and bilateral pleural effusions. Dr. Borrero was consulted who agreed to admission for further evaluation and treatment. More lab work will be obtained such as blood cultures, D-dimer, troponin, CRP and procalcitonin. Differential Diagnosis Unlikely acute exacerbation of chronic obstructive airways disease, congestive heart failure, community acquired pneumonia, asthma with exacerbation or pulmonary embolism Medical Records I reviewed the patient's medical records. Lab Data I reviewed the patient's lab results. 10/14/23 12:15 10/14/23 12:15 Labs/Radiology: Laboratory Results WBC 10.18 10^3/uL (3.29-11.43) 10/14/23 12:15 RBC 4.04 10^6/uL (3.85-5.65) 10/14/23 12:15 Hgb 11.30 g/dL (11.27-16.99) 10/14/23 12:15 Hct 35.4 % (37-53) L 10/14/23 12:15 MCV 87.6 fl (82-101) 10/14/23 12:15 MCH 28.0 pg (27-33) 10/14/23 12:15 MCHC 31.9 g/dL (30-55) 10/14/23 12:15 RDW 15.0 % (12.1-15.1) 10/14/23 12:15 Plt Count 205 10^3/cmm (157-399) 10/14/23 12:15 MPV 9.8 fL (7.4-10.4) 10/14/23 12:15 Neut % (Auto) 71.2 % 10/14/23 12:15 Lymph % (Auto) 24.1 % 10/14/23 12:15 [place] % (Auto) 3.2 % 10/14/23 12:15 Eos % (Auto) 0.6 % 10/14/23 12:15 Baso % (Auto) 0.7 % 10/14/23 12:15 Neut # (Auto) 7.25 10^3/uL (1.8-7.7) 10/14/23 12:15 Lymph # (Auto) 2.5 10^3/uL (0.8-4.8) 10/14/23 12:15 [place] # (Auto) 0.3 10^3/uL (0.2-0.9) 10/14/23 12:15 Eos # (Auto) 0.1 10^3/uL (0.0-0.8) 10/14/23 12:15 Baso # (Auto) 0.1 10^3/uL (0.0-0.1) 10/14/23 12:15 Nucleated RBC % (auto) 0 % 10/14/23 12:15 Nucleated RBCs # 0.0 /100WBC 10/14/23 12:15 PT 32.70 SECONDS (12.1-14.9) H 10/14/23 12:15 INR 3.05 (0.8-1.2) H 10/14/23 12:15 Sodium 133 mmol/L (136-145) L 10/14/23 12:15 Potassium 4.2 mmol/L (3.5-5.1) 10/14/23 12:15 Chloride 95 mmol/L (98-107) L 10/14/23 12:15 Carbon Dioxide 24 mmol/L (22-29) 10/14/23 12:15 Anion Gap 18.2 (5-19) 10/14/23 12:15 BUN 30 mg/dL (8-23) H 10/14/23 12:15 Creatinine 1.7 mg/dL (0.7-1.2) H 10/14/23 12:15 GFR Calculation Not Reportable 10/14/23 12:15 Glucose 198 mg/dL (65-115) H 10/14/23 12:15 Calculated Osmolality 288 mOsm/kg (285-295) 10/14/23 12:15 Calcium 8.6 mg/dL (8.5-10.5) 10/14/23 12:15 Magnesium 1.8 mg/dL (1.7-2.3) 10/14/23 12:15 Total Bilirubin 0.8 mg/dL (0.15-1.2) 10/14/23 12:15 AST 7 U/L (0-40) 10/14/23 12:15 ALT 7 U/L (0-41) 10/14/23 12:15 Alkaline Phosphatase 93 U/L (40-130) 10/14/23 12:15 NT-Pro-B Natriuret Pep 1521 pg/mL (0-450) H 10/14/23 12:15 Total Protein 7.2 g/dL (6.6-8.7) 10/14/23 12:15 Albumin 3.4 g/dL (3.5-5.2) L 10/14/23 12:15 Globulin 3.8 g/dL (1.3-4.6) 10/14/23 12:15 Influenza Type A Ag negative (Negative) 10/14/23 13:41 Influenza Type B Ag negative (Negative) 10/14/23 13:41 SARS-CoV-2 Ag (Rapid) negative (Negative) 10/14/23 13:41 All radiology interpretation(s) finalized by discharge EKG Data EKG 1: I personally reviewed and interpreted this EKG as follows: EKG Interpretation Date: 10/14/23 EKG interpretation time: 12:04 Prior EKG tracings: not available for review Interpretation: EKG shows ventricular rate 84 bpm, TX interval 254, QRS duration 140, QTc of 408, sinus rhythm with first-degree AV block, left axis deviation, intraventricular conduction delay Discharge Plan Discharge Patient Disposition: Admitted As Inpatient Clinical Impression: Pneumonia, Hypoxia, Nausea & vomiting Condition: Stable Prescriptions: No Action losartan 50 mg tablet 50 mg PO DAILY@0700 terazosin 5 mg capsule 5 mg PO BEDTIME nitroglycerin [Nitrostat] 0.4 mg tablet, sublingual 0.4 mg SUBLINGUAL Q5M PRN (Reason: Chest Pain) amlodipine 10 mg tablet 10 mg PO DAILY@0730 furosemide 40 mg tablet 40 mg PO DAILY@0730 propafenone 150 mg tablet 150 mg PO TID Qty: 270 3RF Xarelto 20 mg tablet 20 mg PO DAILY@0730 Qty: 90 2RF potassium chloride 10 mEq capsule, extended release 10 meq PO DAILY@0730 diphenhydramine-acetaminophen [Tylenol PM Extra Strength] 25-500 mg Tablet 2 tab PO BEDTIME PRN (Reason: Sleep) levothyroxine [Euthyrox] 175 mcg tablet 175 mcg PO BEDTIME albuterol sulfate 90 mcg/actuation Hfa Aerosol Inhaler 2 puff INHALATION QID PRN (Reason: Shortness Of Breath) omeprazole magnesium [Prilosec OTC] 20 mg Tablet,Delayed Release (Dr/Ec) 20 mg PO QAM Referrals: Avtar Ngo DO [Primary Care Provider] - Patient Instructions: Opioid Safety, Pain Management Coding Level of Care Code ED Field Operations Supervisor for [facility]g Shahid
[2023-10-14 12:26] LABS: Basophils # 0.1 10^3/uL (0.0-0.1); Basophils % 0.7 %; Eosinophils # 0.1 10^3/uL (0.0-0.8); Eosinophils % 0.6 %; Hematocrit 35.4 % (37-53); Lymphocytes # 2.5 10^3/uL (0.8-4.8); Lymphocytes % 24.1 %; Mean Corpuscular HGB Conc 31.9 g/dL (30-55); Mean Corpuscular Volume 87.6 fl (82-101); Mean Platelet Volume 9.8 fL (7.4-10.4); Monocytes # 0.3 10^3/uL (0.2-0.9); Monocytes % 3.2 %; Neutrophils # 7.25 10^3/uL (1.8-7.7); Neutrophils % 71.2 %; Nucleated Red Blood Cells % 0 %; Platelet Count 205 10^3/cmm (157-399); Red Blood Count 4.04 10^6/uL (3.85-5.65); White Blood Count 10.18 10^3/uL (3.29-11.43)
[2023-10-14] MEDS: ipratropium-albuterol 3 mL Neb INHALATION ×3 (12:28→23:30)
[2023-10-14 12:37] LABS: INR 3.05 (0.8-1.2)
[2023-10-14] MEDS: ondansetron 2 mg/ML SDV 2 mL 4 MG IVP (12:48)
[2023-10-14 12:56] LABS: Alanine Aminotransferase 7 U/L (0-41); Albumin Level 3.4 g/dL (3.5-5.2); Alkaline Phosphatase 93 U/L (40-130); Anion Gap 18.2 (5-19); Aspartate Amino Transferase 7 U/L (0-40); Blood Urea Nitrogen 30 mg/dL (8-23); Calcium 8.6 mg/dL (8.5-10.5); Carbon Dioxide 24 mmol/L (22-29); Chloride 95 mmol/L (98-107); Globulin 3.8 g/dL (1.3-4.6); Glucose 198 mg/dL (65-115); Magnesium 1.8 mg/dL (1.7-2.3); NT Pro B Type Natriuretic Pept 1521 pg/mL (0-450); Osmolality Calculated 288 mOsm/kg (285-295); Potassium 4.2 mmol/L (3.5-5.1); Sodium 133 mmol/L (136-145); Total Bilirubin 0.8 mg/dL (0.15-1.2); Total Protein 7.2 g/dL (6.6-8.7)
[2023-10-14 13:01] LABS: Slide Review Slide Review Perform
[2023-10-14 14:09] LABS: Influenza A by IFA negative (Negative); Influenza B by IFA negative (Negative)
[2023-10-14 14:10] LABS: SARS Covid-2 Antigen negative (Negative)
--- NOTE | 2023-10-14 14:10 | PC.RESP ---
o2 Pt resting in bed with oxygen at 3 lpm. Pt sat 91%. Assisted pt to sit on side of bed with oxygen in place. Pt sat dropped to 84%. Instructed pt to take deep breaths through nose and use pursed lip breathing. O2 sat improved to 88%. Increased o2 to 4 lpm. Assisted pt to standing position. O2 sat on 4 lpm 90% with standing. Assisted pt backing to semi fowlers position with oxygen at 4 lpm. O2 sat resting on 4 lpm 93%. Pt qualifies for oxygen, but might benefit from observation in hospital to monitor oxygen more closely. Notified Dr Almonte.
--- NOTE | 2023-10-14 14:27 | CT_ITS ---
WS: [id number] CT CHEST TECHNIQUE: Noncontrast CT of the chest with coronal and sagittal reformatted images. CLINICAL INFORMATION: dyspnea chf COMPARISON: CT 03/28/2022 DLP: 480.[address] scans at [facility] use at least one of these dose optimization techniques: automated e xposure control; mA and/or kV adjustment per patient size (includes targeted exams where dose is matc hed to clinical indication); or iterative reconstruction. FINDINGS: Cardiomegaly. Moderate chronic emphysematous changes. Tiny LEFT greater than RIGHT pleural effusions. Compressive atelectasis in the lung bases with air bronchograms. Small esophageal hiatal hernia. Num erous anterior mediastinal and parabronchial lymph nodes likely reactive. Patchy LEFT greater than RI GHT perihilar infiltrates. Few patchy infiltrates in the lingula. Pleural parenchymal scarring in the RIGHT middle lobe with bro nchiectasis. Interstitial edema in the lung bases. Hepatomegaly. Adrenal glands are normal. Small esophageal hiatal hernia. Adrenal glands are normal. S plenic granulomas. Fatty atrophy of the pancreas. Moderate thoracic kyphosis. Hypertrophic changes th oracic spine. IMPRESSION: 1. Small LEFT greater than RIGHT pleural effusions with compressive atelectasis in the lung bases wi th air bronchograms. 2. Patchy LEFT greater than RIGHT perihilar infiltrates., Recommend correlation for pneumonia. 3. Mild interstitial edema in the lung bases. 4. Cardiomegaly. 5. A few reactive anterior mediastinal and parabronchial lymph nodes. 6. Small esophageal hiatal hernia.
[2023-10-14 16:36] LABS: ABG PCO2 39.2 mmHg (35-45); ABG PH Result 7.43 (7.35-7.45); Arterial Blood Gas Hematocrit 35.2 % (42-52); Base Excess ABG 1.3 mmol/L (-2.0-2.0); Blood Gas Allen Test Pos; Blood Gas Sample Type Arterial; HCO3 ABG 25.7 mmol/L (22-26); PO2 ABG 55.6 mmHg (80.0-100.0)
[2023-10-14 16:37] LABS: Blood Gas Operator Identificat MONRO; Blood Gas Sample Site Radial, right; Oxygen Device NC; PO2 FiO2 Ratio Arterial Blood 0
[2023-10-14 16:56] LABS: D Dimer 0.68 ug/mLFEU (0-0.59)
[2023-10-14 17:02] LABS: Troponin(5th) Baseline 29 ng/L (0-15)
[2023-10-14 17:12] LABS: Procalcitonin 1.27 ng/mL (0-0.5)
--- NOTE | 2023-10-14 17:53 | ECG_ITS ---
[facility] Test Date: 2023-10-14 Pat Name: Sheng Bernstein Department: Room: 275 Gender: Male Administrative Officer: : 1940 Requested By: Timmy Almonte Order Number: [id number] Reva MD: Dimitri Schroeder M.D. Measurements Intervals [place] Rate: 84 P: 195 VA: 188 QRS: -40 QRSD: 145 T: 11 QT: 366 QTc: 435 Interpretive Statements ECTOPIC ATRIAL RHYTHM WITH OCCASIONAL VENTRICULAR PREMATURE COMPLEXES LEFT AXIS DEVIATION [QRS AXIS < -30] INTRAVENTRICULAR CONDUCTION DELAY [130+ ms QRS DURATION] Compared to ECG 10/14/2023 12:03:24 Ectopic atrial rhythm now present Ventricular premature complex(es) now present Sinus rhythm no longer present First degree AV block no longer present Electronically Signed On 10-16-2023 14:16:34 [facility] [place] by Dimitri Schroeder M.D. [id number]
--- NOTE | 2023-10-14 18:06 | CTR_ITS ---
PROCEDURE INFORMATION: Exam: CT Abdomen And Pelvis Without Contrast Exam date and time: 10/14/2023 8:55 PM Age: 83 years old Clinical indication: Abdominal pain; Generalized; Additional info: Abominal distention, diffuse tenderness, n/v/ TECHNIQUE: Imaging protocol: Computed tomography of the abdomen and pelvis without contrast. Radiation optimization: All CT scans at this facility use at least one of these dose optimization techniques: automated exposure control; mA and/or kV adjustment per patient size (includes targeted exams where dose is matched to clinical indication); or iterative reconstruction. REPORTING DATA: Count of CT and Cardiac NM exams in prior 12 months: This patient has received 0 known CTs and 0 known cardiac nuclear medicine studies in the 12 months prior to the current study. COMPARISON: [place] [id number] 02/08/2021 3:50 PM RADIATION DOSE METRICS: Total DLP (mGy-cm): 803.75 FINDINGS: Lungs: There is increased multifocal dependent atelectasis and/or infiltration in both lower lobes, greater on the left. There is a small left pleural effusion. Coronary arteries: The heart size is normal but there is extensive calcified plaque in the coronary arteries. Liver: Normal. No mass. Gallbladder and bile ducts: The gallbladder is enlarged. No visible stones or wall thickening. No surrounding edema. Pancreas: Normal. No ductal dilation. Spleen: Normal. No splenomegaly. Adrenal glands: Normal. No mass. Kidneys and ureters: Normal. No hydronephrosis. Stomach and bowel: Scattered gas and fluid within the small bowel. No abnormal distention or transition zone to indicate mechanical obstruction. There is scattered stool throughout the colon without obstruction. Appendix: No evidence of appendicitis. Intraperitoneal space: No free fluid, free air or abscess. Vasculature: Unremarkable. No abdominal aortic aneurysm. Lymph nodes: Unremarkable. No enlarged lymph nodes. Urinary bladder: The urinary bladder is unremarkable. Reproductive: The prostate is mildly enlarged consistent with age. Bones/joints: Scattered degenerative changes in the lumbar spine. No fracture or subluxation. Mild chronic central stenosis at L1-L2 and L3-L4 and L4-L5. Soft tissues: Small, fatty left inguinal hernia. CT/CT abdomen pelvis wo con [id number] IMPRESSION: 1. Bibasilar infiltrates or atelectasis in the dependent portions of the lungs. Small left effusion. 2. No acute abdominopelvic findings. 3. Scattered gas, fluid and stool in the bowel but without mechanical obstruction or acute inflammation. 4. Enlarged gallbladder. No visible stones or inflammatory changes. 5. Other chronic findings as described
--- NOTE | 2023-10-14 18:18 | PM.HP ---
Providers/Chief Complaint Admitting Physician: Ru Sherwood MD Primary Care Provider: Avtar Ngo DO Chief Complaint: sob, low O2 History of Present Illness Sheng Bernstein is a 83 year old male hypertension, type 2 diabetes mellitus, atrial fibrillation on propafenone, Xarelto, dyslipidemia, CHF who presents to [facility] as for the last few days he has been feeling unwell, short of breath, fatigue, malaise, subjective fevers. Patient tells me that all his symptoms started roughly on Thursday, when he felt unwell, he had episode of nausea and vomiting, reports abdominal distention, he does not have a bowel movement regularly, but his last bowel movement was 2 days ago he was regular, no bloody or black stools. Since then he has been not feeling well, having subjective fevers, chills feeling short of breath, fatigue, malaise, no recurrent nausea, no vomiting, no recent travel, no sick contacts, patient in the ER waiting room was found to have an O2 sat in the 70s, here, he is on 3 L, not in respiratory distress no intercostal retractions no suprasternal retractions no nasal flaring he is able to speak full sentences without feeling short of breath but is on 3 L, denies lower extremity edema, no chest pain, Review of Systems Const: Reports: fever(s), body aches, fatigue and malaise Eyes: Denies: change in vision ENMT: Denies: throat pain Card: Denies: chest pain or palpitations Resp: Reports: dyspnea and non-productive cough GI: Denies: abdominal pain or nausea : Denies: flank pain or difficulty urinating Musc: Denies: neck pain or back pain Skin/Breast: Denies: rash Neuro: Denies: headache(s) Endo: Denies: polyuria Medications/Allergies Home Medications Medication Instructions Recorded Confirmed Last Taken Type losartan 50 mg tablet 50 mg PO DAILY@0700 02/08/20 10/14/23 10/14/23 History nitroglycerin 0.4 mg sublingual 0.4 mg sublingual Q5M PRN Chest 02/08/20 10/14/23 02/08/21 History tablet (Nitrostat) Pain terazosin 5 mg capsule 5 mg PO BEDTIME 02/08/20 10/14/23 10/13/23 History diphenhydramine 25 2 tab PO BEDTIME PRN Sleep 02/08/21 10/14/23 02/07/21 History mg-acetaminophen 500 mg tablet (Tylenol PM Extra Strength) potassium chloride 10 mEq 10 meq PO DAILY@0730 02/08/21 10/14/23 10/14/23 History capsule,extended release amlodipine 10 mg tablet 10 mg PO DAILY@0730 03/27/21 10/14/23 10/14/23 History furosemide 40 mg tablet 40 mg PO DAILY@0730 09/25/21 10/14/23 10/13/23 History albuterol sulfate 90 mcg/actuation 2 puff inhalation QID PRN 03/28/22 10/14/23 Unknown History aerosol inhaler Shortness Of Breath levothyroxine 175 mcg tablet 175 mcg PO BEDTIME 03/28/22 10/14/23 10/13/23 History (Euthyrox) omeprazole magnesium 20 mg 20 mg PO QAM 03/28/22 10/14/23 10/14/23 History tablet,delayed release (Prilosec OTC) propafenone 150 mg tablet 150 mg PO TID #270 tabs 12/02/22 10/14/23 10/14/23 Rx rivaroxaban 20 mg tablet (Xarelto) 20 mg PO DAILY@0730 #90 tabs 06/29/23 10/14/23 10/14/23 Rx Allergies Allergy/AdvReac Type Severity Reaction Status Date / Time Penicillins Allergy Severe ADR/ALGY-Pa Verified 10/14/23 11:54 lpitations PFSH Acute PFSH: Medical History (Updated 10/14/23 @ 18:23 by Ru Sherwood MD) Anticoagulation adequate with anticoagulant therapy Xarelto Atrial fibrillation BPH (benign prostatic hyperplasia) CHF (congestive heart failure) Diabetes 1.5, managed as type 2 Dyslipidemia HTN (hypertension) PUD (peptic ulcer disease) Surgical History (Updated 10/14/23 @ 18:23 by Ru Sherwood MD) S/P appendectomy Family History Father Diabetes Social History Smoking and tobacco/nicotine status: former use of tobacco/nicotine Household members: spouse Marital status: service: No Current occupational status: retired Vitals/I&O/Wt Last Vital Signs Temp 98.0 F 10/14/23 11:49 Pulse 86 10/14/23 12:36 Resp 20 H 10/14/23 12:28 BP 129/63 10/14/23 11:49 Pulse Ox 91 10/14/23 12:28 O2 Del Method Nasal Cannula 10/14/23 12:28 O2 Flow Rate 3 10/14/23 12:28 Weight last 48 hrs Weight 80.739 kg Physical Exam Const: COMMON NORMALS: no acute distress and patient oriented x3 HENMT: COMMON NORMALS: normocephalic HEAD & SCALP: normocephalic Neck/C-Spine: COMMON NORMALS: no JVD Lymph: LYMPHATIC: no lymphadenopathy noted Resp: COMMON NORMALS: normal respiratory effort, No retractions, No use of accessory muscles and clear to auscultation bilaterally AUSCULTATION: crackles Cardio: COMMON NORMALS: no JVD, regular rate, regular rhythm, S1 normal heart sound present and S2 normal heart sound present RATE: regular rate RHYTHM: regular rhythm HEART SOUNDS: S1 normal heart sound present and S2 normal heart sound present GI: PALPATION: Yes Soft to palpation OTHER: Abdomen is soft, no guarding, no rebound, no rigidity, does have diffuse tenderness Extremity: COMMON NORMALS: capillary refill normal, no clubbing, cyanosis or edema, no calf tenderness and no pedal edema Neuro: COMMON NORMALS: patient oriented x3, CN's II-XII intact bilaterally, moves all extremities and no focal motor deficits Psych: COMMON NORMALS: mental status grossly normal Data 10/15/23 05:30 10/15/23 05:30 Micro: Microbiology 10/14/23 16:14 Blood Culture - Preliminary Blood SPECIMEN COLLECTED 10/14/23 16:10 Blood Culture - Preliminary Blood SPECIMEN COLLECTED A&P Assessment and plan (1) Pneumonia: Qualifiers: Laterality: bilateral Lung location: unspecified part of lung Pneumonia type: due to unspecified organism Qualified Code(s): J18.9 - Pneumonia, unspecified organism (2) Hypoxia: (3) HTN (hypertension): (4) Atrial fibrillation: Qualifiers: Atrial fibrillation type: longstanding persistent Qualified Code(s): I48.11 - Longstanding persistent atrial fibrillation (5) Acute respiratory failure with hypoxia: (6) Diabetes 1.5, managed as type 2: (7) NSTEMI (non-ST elevated myocardial infarction): Plan Acute hypoxic respiratory failure ? Secondary to pneumonia ? Monitor respiratory status closely, ? Respiratory therapy eval, Pneumonia ? CT of the chest MPRESSION: 1.? Small LEFT greater than RIGHT pleural effusions with compressive atelectasis in the lung bases with air bronchograms. 2.? Patchy LEFT greater than RIGHT perihilar infiltrates., Recommend correlation for pneumonia. 3.? Mild interstitial edema in the lung bases. 4.? Cardiomegaly. 5.? A few reactive anterior mediastinal and parabronchial lymph nodes. 6.? Small esophageal hiatal hernia. Plan ? Sputum cultures, blood cultures, ? Vancomycin, meropenem, ? Monitor inflammatory markers, ? Monitor respiratory status closely, ? If any worsening respiratory status we will move down to ICU, NSTEMI, type I versus type II, ? Serial EKGs, serial troponins, telemetry monitoring, ? No chest pain complaints, History of atrial fibrillation, continue propafenone, Elevated INR at 3, hold Xarelto Nausea, vomiting with abdominal distention on a examination diffuse tenderness, CT scan abdomen pelvis Full code, SCDs for DVT prophylaxis, supratherapeutic INR at 3.05 Attestations Medical Necessity Statement*: Patient requires hospitalization, inpatient, greater than 2 midnights for acute hypoxia, pneumonia, elevated INR, NSTEMI, inpatient, greater than 2 midnights Diagnoses Pneumonia J18.9 Laterality: bilateral Lung location: unspecified part of lung Pneumonia type: due to unspecified organism Hypoxia R09.02 HTN (hypertension) I10 Atrial fibrillation I48.11 Atrial fibrillation type: longstanding persistent Acute respiratory failure with hypoxia 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
[2023-10-14] MEDS: meropenem 1,000 MG in sodium chloride 0.9% (plus) 50 ML 100 MG IV (18:32)
[2023-10-14 18:45] LABS: Lipase 9 U/L (13-60)
[2023-10-14 18:46] LABS: Troponin 5 2HR 31.03 ng/L (0-15)
[2023-10-14 18:48] LABS: Troponin 5 2HR Delta 2.03 ABS# (0-10)
[2023-10-14] MEDS: propafenone 150 mg Tablet PO (20:38)
[2023-10-14] MEDS: levothyroxine 175 mcg Tablet PO (20:38)
[2023-10-14] MEDS: terazosin 5 mg Capsule PO (20:38)
[2023-10-14 20:43] LABS: Adenovirus Not Detected (NOT DETECT); Chlamydia Pneumoniae Not Detected (NOT DETECT); Coronavirus 229E,HKU1,NL63,OC4 Not Detected (NOT DETECT); Human Metapneumovirus Not Detected (NOT DETECT); Human Rhinovirus/Enterovirus Not Detected (NOT DETECT); Influenza A Not Detected (NOT DETECT); Influenza A H1 Not Detected (NOT DETECT); Influenza A H1-2009 Not Detected (NOT DETECT); Influenza A H3 Not Detected (NOT DETECT); Influenza B Not Detected (NOT DETECT); Mycoplasma Pneumoniae Not Detected (NOT DETECT); Parainfluenza Virus Type 1 Not Detected (NOT DETECT); Parainfluenza Virus Type 2 Not Detected (NOT DETECT); Parainfluenza Virus Type 3 Not Detected (NOT DETECT); Parainfluenza Virus Type 4 Not Detected (NOT DETECT); Respiratory Syncytial Virus A Not Detected (NOT DETECT); Respiratory Syncytial Virus B Not Detected (NOT DETECT); SARS-COV-2 Not Detected (NOT DETECT)
[2023-10-14] MEDS: vancomycin 1,250 MG/250 ML PIGGYBACK 250 MG IV (21:33)
--- NOTE | 2023-10-14 21:54 | ECG_ITS ---
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 Measurements Intervals [place] Rate: 76 P: 196 VT: 207 QRS: -49 QRSD: 148 T: 23 QT: 396 QTc: 446 Interpretive Statements ECTOPIC ATRIAL RHYTHM LEFT AXIS DEVIATION [QRS AXIS < -30] INTRAVENTRICULAR CONDUCTION DELAY [130+ ms QRS DURATION] Compared to ECG 10/14/2023 17:53:26 Ventricular premature complex(es) no longer present Electronically Signed On 10-16-2023 14:17:01 [facility] by Dimitri Schroeder M.D. [id number]
[2023-10-14 22:26] LABS: Troponin 5 6HR 31.05 ng/L (0-15); Troponin 5 6HR Delta 2.05 ng/L (0-12)
[2023-10-14 22:28] LABS: Glucose Point of Care 147 mg/dL (70-110)
[2023-10-15] VITALS (20 sets, daily range): BP systolic 103–119; BP diastolic 56–66; PULSE 67–85; RESP 13–18; TEMP 36.7–37.1; O2SAT 80–97
[2023-10-15] MEDS: meropenem 1,000 MG in sodium chloride 0.9% (plus) 50 ML 100 MG IV ×3 (02:05→18:21)
[2023-10-15] MEDS: ipratropium-albuterol 3 mL Neb INHALATION ×6 (04:16→23:33)
[2023-10-15] MEDS: pantoprazole DR 40 mg Tablet PO (05:08)
[2023-10-15 05:44] LABS: Basophils % 0.3 %; Eosinophils # 0.2 10^3/uL (0.0-0.8); Eosinophils % 1.7 %; Hematocrit 31.5 % (37-53); Lymphocytes # 3.8 10^3/uL (0.8-4.8); Lymphocytes % 35.3 %; Mean Corpuscular HGB Conc 32.1 g/dL (30-55); Mean Corpuscular Hemoglobin 27.7 pg (27-33); Mean Corpuscular Volume 86.3 fl (82-101); Mean Platelet Volume 9.8 fL (7.4-10.4); Monocytes # 0.4 10^3/uL (0.2-0.9); Monocytes % 3.7 %; Neutrophils # 6.39 10^3/uL (1.8-7.7); Neutrophils % 58.8 %; Nucleated Red Blood Cells % 0 %; Platelet Count 201 10^3/cmm (157-399); Red Blood Count 3.65 10^6/uL (3.85-5.65); Red Cell Distribution Width 14.9 % (12.1-15.1); White Blood Count 10.85 10^3/uL (3.29-11.43)
[2023-10-15 06:01] LABS: Lactic Sepsis W/Reflex 0.8 mmol/L (0.5-2.2)
[2023-10-15 06:12] LABS: Estmated Average Glucose 166; Hemoglobin A1C 7.4 % (4.0-6.0)
[2023-10-15 06:13] LABS: Chol HDL Ratio 2.94 mg/dL (1.0-5.00); Cholesterol 91 mg/dL (0-200); HDL Cholesterol 31 mg/dL (60-100); LDL Cholesterol Calculated 41 mg/dL (50-129); LDL HDL Ratio 1.32 RATIO (0.00-3.22); Triglycerides 96 mg/dL (0-150)
[2023-10-15 06:15] LABS: Anion Gap 15.7 (5-19); Blood Urea Nitrogen 32 mg/dL (8-23); Calcium 8.4 mg/dL (8.5-10.5); Carbon Dioxide 25 mmol/L (22-29); Chloride 97 mmol/L (98-107); Glucose 130 mg/dL (65-115); Magnesium 2.1 mg/dL (1.7-2.3); Osmolality Calculated 287 mOsm/kg (285-295); Phosphorus 3.4 mg/dL (2.5-4.5); Potassium 3.7 mmol/L (3.5-5.1); Sodium 134 mmol/L (136-145); Thyroid Stimulating Hormone 0.64 uIU/mL (0.27-4.20)
[2023-10-15 06:22] LABS: Glucose Point of Care 117 mg/dL (70-110)
[2023-10-15] MEDS: losartan 50 mg Tablet PO (06:35)
[2023-10-15] MEDS: amlodipine 10 mg Tablet PO (06:35)
[2023-10-15] MEDS: propafenone 150 mg Tablet PO ×3 (07:53→20:39)
[2023-10-15 08:53] LABS: INR 1.89 (0.8-1.2)
--- NOTE | 2023-10-15 10:14 | PC.CHAP ---
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 [] Patient/Family/Request visit [] Outpatient visit [] Follow-up visit [] Physician referral [] Code/Alert [x] Routine visit [] Staff referral [] Actively dying [] Patient sleeping [] Family support [] [] Out of room [] Palliative care [] [x] Receiving care in room [] Pre-surgical visit [] Trauma [] Long length of stay [] ICU visit [] Other: Relational/Emotional Strength [x] Patient feels connected with others/family/visitors/staff [] Distress [] Loneliness/isolation [] Abandonment Spirituality of Patient [x] Person of Ana M [] Attends Jehov[employer] Witness of their Ana M [x] Believes in Prayer [] Reads Bible or Cheondoism materials [] There are Spiritual issues to be addressed Manager [employer] Interventions [x] Prayer [x] Active listening [x] Non-anxious presence [x] Spiritual/emotional support [] Crisis/trauma care [x] Spiritual counseling [] Bereavement support [] Provided bereavement packet [] Provided Bible/devotional materials [] Provided toy/stuffed animal, coloring book to patient or family member [] Provided Communion [] Anointing/Ferdinand [] Salvation [x] Completed spiritual assessment [] Other: Impact on Illness or Injury [] Angry [] Fearful [] Anxious [] Often cries [] Exhaustion [] Unable to work [] Unable to attend jewish [] Unable to walk/stand [] Unable to read [] Unable to drive [] Unable to eat/drink [] Unable to sleep [] Unable to be with family [] Patient intubated [] Other: Summary punemonia well need staff care before he well be able to home negative feelings Time spent with patient 10 mins
[2023-10-15 11:40] LABS: Glucose Point of Care 137 mg/dL (70-110)
--- NOTE | 2023-10-15 13:19 | PM.PN ---
Subjective Subjective: patient was seen this [facility], he reports a productive cough, no fever, no chills, no lightheadedness, does report shortness of breath with exertion, is on 5L Vitals/I&O/Wt Last Vital Signs Temp 98.6 F 10/15/23 12:00 Pulse 79 10/15/23 12:32 Resp 18 10/15/23 12:32 BP 108/66 10/15/23 12:00 Pulse Ox 92 10/15/23 12:32 O2 Del Method Nasal Cannula 10/15/23 12:32 O2 Flow Rate 5 10/15/23 12:32 10/14/23 10/15/23 10/15/23 22:59 06:59 14:59 Intake Total 500 / 500 250 / 750 50 / 50 Output Total 350 / 350 360 / 360 Balance 500 / 500 -100 / 400 -310 / -310 Weight last 48 hrs Weight 80.739 kg Physical Exam Const: COMMON NORMALS: no acute distress and patient oriented x3 Resp: COMMON NORMALS: normal respiratory effort, No retractions and No use of accessory muscles AUSCULTATION: crackles and wheezes Cardio: COMMON NORMALS: regular rate, regular rhythm, S1 normal heart sound present and S2 normal heart sound present RATE: regular rate RHYTHM: regular rhythm HEART SOUNDS: S1 normal heart sound present and S2 normal heart sound present GI: COMMON NORMALS: Normal to inspection, nondistended, normoactive bowel sounds present and non-tender Extremity: COMMON NORMALS: no pedal edema Neuro: COMMON NORMALS: patient oriented x3 Psych: COMMON NORMALS: mental status grossly normal Data 10/15/23 05:30 10/15/23 05:30 Micro: Microbiology 10/14/23 16:14 Blood Culture - Preliminary Blood SPECIMEN COLLECTED 10/14/23 16:10 Blood Culture - Preliminary Blood SPECIMEN COLLECTED A&P Assessment and plan (1) Pneumonia: Qualifiers: Laterality: bilateral Lung location: unspecified part of lung Pneumonia type: due to unspecified organism Qualified Code(s): J18.9 - Pneumonia, unspecified organism (2) Hypoxia: (3) HTN (hypertension): (4) Atrial fibrillation: Qualifiers: Atrial fibrillation type: longstanding persistent Qualified Code(s): I48.11 - Longstanding persistent atrial fibrillation (5) Acute respiratory failure with hypoxia: (6) Diabetes 1.5, managed as type 2: (7) NSTEMI (non-ST elevated myocardial infarction): Plan Acute hypoxic respiratory failure ? Secondary to pneumonia ? Monitor respiratory status closely, ? Respiratory therapy eval, Pneumonia ? CT of the chest MPRESSION: 1.? Small LEFT greater than RIGHT pleural effusions with compressive atelectasis in the lung bases with air bronchograms. 2.? Patchy LEFT greater than RIGHT perihilar infiltrates., Recommend correlation for pneumonia. 3.? Mild interstitial edema in the lung bases. 4.? Cardiomegaly. 5.? A few reactive anterior mediastinal and parabronchial lymph nodes. 6.? Small esophageal hiatal hernia. Plan ? Sputum cultures, blood cultures, ? Vancomycin, meropenem, ? Monitor inflammatory markers, ? Monitor respiratory status closely, ? If any worsening respiratory status we will move down to ICU, NSTEMI, type I versus type II, ? Serial EKGs, serial troponins, telemetry monitoring, ? No chest pain complaints, History of atrial fibrillation, continue propafenone, Elevated INR at 1.89, resume Xarelto Nausea, vomiting with abdominal distention on a examination diffuse tenderness, CT scan abdomen pelvis Full code, SCDs for DVT prophylaxis,xarelto Attestations Medical Necessity Statement*: patient requires hospitalization for PNA, hypoxia Coding Level of Care Code Acute Code for Chg Fwd Diagnoses Pneumonia J18.9 Laterality: bilateral Lung location: unspecified part of lung Pneumonia type: due to unspecified organism Hypoxia R09.02 HTN (hypertension) I10 Atrial fibrillation I48.11 Atrial fibrillation type: longstanding persistent Acute respiratory failure with hypoxia 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
[2023-10-15 16:51] LABS: Glucose Point of Care 171 mg/dL (70-110)
--- NOTE | 2023-10-15 18:11 | PC.NURSE ---
SHIFT SUMMARY Patient has done well today. He has set up in the chair multiple times today. Ambulated in the room. Still requiring 5L of oxygen. Now having productive cough. Currently sitting in the chair visiting with family. Good PO intake and output.
[2023-10-15] MEDS: vancomycin 1,250 MG/250 ML PIGGYBACK 250 MG IV (19:45)
[2023-10-15] MEDS: levothyroxine 175 mcg Tablet PO (20:39)
[2023-10-15] MEDS: terazosin 5 mg Capsule PO (20:39)
[2023-10-15] MEDS: rivaroxaban 10 mg Tablet 20 MG PO (20:39)
[2023-10-15 20:48] LABS: Glucose Point of Care 155 mg/dL (70-110)
[2023-10-16] VITALS (20 sets, daily range): BP systolic 112–148; BP diastolic 49–73; PULSE 58–82; RESP 15–20; TEMP 36.4–36.9; O2SAT 85–95
[2023-10-16] MEDS: meropenem 1,000 MG in sodium chloride 0.9% (plus) 50 ML 100 MG IV ×3 (02:00→18:07)
[2023-10-16] MEDS: ipratropium-albuterol 3 mL Neb INHALATION ×5 (04:42→19:55)
[2023-10-16] MEDS: pantoprazole DR 40 mg Tablet PO (05:06)
[2023-10-16 05:45] LABS: Basophils % 0.4 %; Eosinophils # 0.5 10^3/uL (0.0-0.8); Eosinophils % 6.6 %; Hematocrit 31.6 % (37-53); Lymphocytes # 3.7 10^3/uL (0.8-4.8); Lymphocytes % 48.3 %; Mean Corpuscular HGB Conc 31.3 g/dL (30-55); Mean Corpuscular Hemoglobin 27.4 pg (27-33); Mean Corpuscular Volume 87.5 fl (82-101); Mean Platelet Volume 9.9 fL (7.4-10.4); Monocytes # 0.4 10^3/uL (0.2-0.9); Monocytes % 4.6 %; Neutrophils # 2.99 10^3/uL (1.8-7.7); Neutrophils % 39.7 %; Nucleated Red Blood Cells % 0 %; Platelet Count 217 10^3/cmm (157-399); Red Blood Count 3.61 10^6/uL (3.85-5.65); Red Cell Distribution Width 15.1 % (12.1-15.1); White Blood Count 7.55 10^3/uL (3.29-11.43)
[2023-10-16 06:04] LABS: Anion Gap 14.7 (5-19); Blood Urea Nitrogen 35 mg/dL (8-23); Calcium 8.5 mg/dL (8.5-10.5); Carbon Dioxide 25 mmol/L (22-29); Chloride 102 mmol/L (98-107); Glucose 124 mg/dL (65-115); Magnesium 2.1 mg/dL (1.7-2.3); Osmolality Calculated 295 mOsm/kg (285-295); Phosphorus 3.3 mg/dL (2.5-4.5); Potassium 3.7 mmol/L (3.5-5.1); Sodium 138 mmol/L (136-145)
[2023-10-16 06:21] LABS: Glucose Point of Care 112 mg/dL (70-110)
[2023-10-16] MEDS: amlodipine 10 mg Tablet PO (06:30)
[2023-10-16] MEDS: losartan 50 mg Tablet PO (06:30)
[2023-10-16] MEDS: propafenone 150 mg Tablet PO ×3 (08:02→20:13)
[2023-10-16 11:04] LABS: Glucose Point of Care 197 mg/dL (70-110)
--- NOTE | 2023-10-16 12:27 | PM.PN ---
Subjective Subjective: Patient was seen this morning, he sitting up the side the bed on 2 L, family is at bedside, continues to complain of generalized weakness, shortness of breath has improved, no fevers, chills, continues to have a productive cough Vitals/I&O/Wt Last Vital Signs Temp 97.9 F 10/16/23 11:17 Pulse 74 10/16/23 11:24 Resp 18 10/16/23 11:24 BP 134/67 10/16/23 11:17 Pulse Ox 94 10/16/23 11:24 O2 Del Method Nasal Cannula 10/16/23 11:24 O2 Flow Rate 2 10/16/23 11:24 10/15/23 10/16/23 10/16/23 22:59 06:59 14:59 Intake Total 540 / 710 50 / 760 170 / 170 Balance 540 / 350 50 / 400 170 / 170 Weight last 48 hrs Weight 86.778 kg Physical Exam Const: COMMON NORMALS: no acute distress and patient oriented x3 Resp: COMMON NORMALS: normal respiratory effort, No retractions, No use of accessory muscles and clear to auscultation bilaterally AUSCULTATION: clear to auscultation bilaterally Cardio: COMMON NORMALS: regular rate, regular rhythm, S1 normal heart sound present and S2 normal heart sound present RATE: regular rate RHYTHM: regular rhythm HEART SOUNDS: S1 normal heart sound present and S2 normal heart sound present GI: COMMON NORMALS: Normal to inspection, nondistended, normoactive bowel sounds present and non-tender Extremity: COMMON NORMALS: no pedal edema Neuro: COMMON NORMALS: patient oriented x3 Psych: COMMON NORMALS: mental status grossly normal Data 10/16/23 05:14 10/16/23 05:14 Micro: Microbiology 10/15/23 07:55 Gram Stain - Final Sputum - Expectorated Sputum 10/14/23 16:14 Blood Culture - Preliminary Blood NEGATIVE TO DATE 10/14/23 16:10 Blood Culture - Preliminary Blood NEGATIVE TO DATE A&P Assessment and plan (1) Pneumonia: Qualifiers: Laterality: bilateral Lung location: unspecified part of lung Pneumonia type: due to unspecified organism Qualified Code(s): J18.9 - Pneumonia, unspecified organism (2) Hypoxia: (3) HTN (hypertension): (4) Atrial fibrillation: Qualifiers: Atrial fibrillation type: longstanding persistent Qualified Code(s): I48.11 - Longstanding persistent atrial fibrillation (5) Acute respiratory failure with hypoxia: (6) Diabetes 1.5, managed as type 2: (7) NSTEMI (non-ST elevated myocardial infarction): Plan Acute hypoxic respiratory failure ? Secondary to pneumonia ? Monitor respiratory status closely, ? Respiratory therapy eval, Pneumonia ? CT of the chest MPRESSION: 1.? Small LEFT greater than RIGHT pleural effusions with compressive atelectasis in the lung bases with air bronchograms. 2.? Patchy LEFT greater than RIGHT perihilar infiltrates., Recommend correlation for pneumonia. 3.? Mild interstitial edema in the lung bases. 4.? Cardiomegaly. 5.? A few reactive anterior mediastinal and parabronchial lymph nodes. 6.? Small esophageal hiatal hernia. Plan ? Sputum cultures, blood cultures, ? Vancomycin, meropenem, ? Monitor inflammatory markers, ? Monitor respiratory status closely, ? If any worsening respiratory status we will move down to ICU, NSTEMI, type I versus type II, ? Serial EKGs, serial troponins, telemetry monitoring, ? No chest pain complaints, History of atrial fibrillation, continue propafenone, Elevated INR at 1.89, resume Xarelto Nausea, vomiting with abdominal distention on a examination diffuse tenderness, CT scan abdomen pelvis no acute findings 1. ? Bibasilar infiltrates or atelectasis in the dependent portions of the lungs. Small left effusion. 2. ? No acute abdominopelvic findings. 3. ? Scattered gas, fluid and stool in the bowel but without mechanical obstruction or acute inflammation. 4. ? Enlarged gallbladder. No visible stones or inflammatory changes. 5. ? Other chronic findings as described ? 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
--- NOTE | 2023-10-16 14:23 | USCV_ITS ---
Sheng Bernstein Age: 83 Gender: M : 1940 Exam Date: 10/16/2023 14:47 Ordering Phys: Ru Sherwood MD Technologist: Carl Mcnally Exam Location: [facility] [place] Indication: sob BP: 123 / 73 HR: 80 Rhythm: Sinus Technical Quality: Adequate MEASUREMENTS (Male / Female) Normal Values 2D ECHO LV Diastolic Diameter PLAX 5.1 cm 4.2 - 5.9 / 3.9 - 5.3 cm LV Systolic Diameter PLAX 3.3 cm IVS Diastolic Thickness 1.2 cm 0.6 - 1.0 / 0.6 - 0.9 cm IVS Systolic Thickness 2.3 cm LVPW Diastolic Thickness 1.2 cm 0.6 - 1.0 / 0.6 - 0.9 cm LVPW Systolic Thickness 1.6 cm LVOT Diameter 2.1 cm LV Ejection Fraction 2D Teich 64.7 % LV Ejection Fraction MOD 2C 49.3 % LV Ejection Fraction 2C AL 48.5 % LA Diameter 4.5 cm M-MODE Aortic Annulus Diameter 4.0 cm LA Ao Ratio MM 1.1 MV E Point Septal Separation 1.2 cm DOPPLER AV Peak Velocity 167.0 cm/s LVOT Peak Velocity 107.0 cm/s AV Area Cont Eq vti 2.2 cm squared AV Area Cont Eq pk 2.2 cm squared MV Area PHT 5.0 cm squared Mitral E to A Ratio 0.9 MV E' Velocity 45.5 cm/s Mitral E to MV E' Ratio 5.2 Mitral E to LV E' Lateral Ratio 4.3 Mitral E to LV E' Septal Ratio 6.4 TR Peak Velocity 173.0 cm/s TR Peak Gradient 12.0 mmHg TV Peak E Velocity 100.0 cm/s Right Atrial Pressure 3.0 mmHg Pulmonary Artery Systolic Pressu 15.0 mmHg FINDINGS Left Ventricle Mild diffuse hypokinesia left ventricular ejection fraction of around 49%. Mild left ventricular hypertrophy. Grade I/IV diastolic dysfunction (abnormal relaxation filling pattern), normal to mildly elevated filling pressures. Right Ventricle The right ventricle is normal in size and function. Right Atrium The right atrium is normal in size. Left Atrium Mildly increased left atrial size. Mitral Valve Thickened mitral valve. Mild mitral annular calcification. Aortic Valve Thickened aortic valve. Aortic valve sclerosis. Tricuspid Valve Trace tricuspid valve regurgitation. Pulmonic Valve Thickened pulmonic valve. Pericardium Normal pericardium without effusion. Aorta Normal ascending aorta dimension. IVC Inferior vena cava not visualized. CONCLUSIONS Mild diffuse hypokinesia left ventricular ejection fraction of around 49%. Mild left ventricular hypertrophy. Grade I/IV diastolic dysfunction (abnormal relaxation filling pattern), normal to mildly elevated filling pressures. Mildly increased left atrial size. Thickened mitral valve. Mild mitral annular calcification. Trace tricuspid valve regurgitation. Aortic valve sclerosis. Thickened pulmonic valve. There is no pericardial effusion. There are no intracardiac masses. Compared to the study from 02/09/2021, there is slight improvement in the LVEF-from 40% to 49%. Dr Amy Greenwood MD FAC (Electronically Signed) Final Date: 16 October 2023 22:33 S
--- NOTE | 2023-10-16 14:52 | PC.SOCIAL ---
IMM Update pg 2 of IMM updated and reviewed w/ patient. Copy provided and copy dated, initialed and placed in chart.
[2023-10-16 16:41] LABS: Glucose Point of Care 167 mg/dL (70-110)
--- NOTE | 2023-10-16 17:57 | PC.NURSE ---
SHIFT SUMMARY Patient has done well today. Down to 2L of oxygen. Patient has been up several times throughout the day. Patient has had visitors all day today. Cough is less productive today than yesterday. Good intake and output. Currently visiting with family at bedside.
[2023-10-16] MEDS: rivaroxaban 10 mg Tablet 20 MG PO (18:07)
[2023-10-16] MEDS: levothyroxine 175 mcg Tablet PO (20:12)
[2023-10-16] MEDS: vancomycin 1,250 MG/250 ML PIGGYBACK 250 MG IV (20:12)
[2023-10-16] MEDS: terazosin 5 mg Capsule PO (20:13)
[2023-10-16 20:41] LABS: Glucose Point of Care 240 mg/dL (70-110)
[2023-10-17] VITALS (10 sets, daily range): BP systolic 120–135; BP diastolic 62–73; PULSE 68–83; RESP 16–23; TEMP 36.6–36.9; O2SAT 92–94
[2023-10-17] MEDS: ipratropium-albuterol 3 mL Neb INHALATION ×3 (00:19→08:10)
[2023-10-17] MEDS: meropenem 1,000 MG in sodium chloride 0.9% (plus) 50 ML 100 MG IV (02:41)
[2023-10-17 04:38] LABS: Basophils % 0.6 %; Eosinophils # 0.6 10^3/uL (0.0-0.8); Eosinophils % 8.8 %; Hematocrit 31.7 % (37-53); Lymphocytes # 2.7 10^3/uL (0.8-4.8); Lymphocytes % 39.2 %; Mean Corpuscular HGB Conc 31.9 g/dL (30-55); Mean Corpuscular Hemoglobin 27.8 pg (27-33); Mean Corpuscular Volume 87.3 fl (82-101); Mean Platelet Volume 9.7 fL (7.4-10.4); Monocytes # 0.4 10^3/uL (0.2-0.9); Neutrophils # 3.12 10^3/uL (1.8-7.7); Neutrophils % 44.8 %; Nucleated Red Blood Cells % 0 %; Platelet Count 256 10^3/cmm (157-399); Red Blood Count 3.63 10^6/uL (3.85-5.65); Red Cell Distribution Width 14.8 % (12.1-15.1); White Blood Count 6.96 10^3/uL (3.29-11.43)
[2023-10-17 05:01] LABS: Anion Gap 15.9 (5-19); Blood Urea Nitrogen 31 mg/dL (8-23); Calcium 8.4 mg/dL (8.5-10.5); Carbon Dioxide 22 mmol/L (22-29); Chloride 105 mmol/L (98-107); Glucose 133 mg/dL (65-115); Magnesium 2.1 mg/dL (1.7-2.3); Osmolality Calculated 296 mOsm/kg (285-295); Phosphorus 2.7 mg/dL (2.5-4.5); Potassium 3.9 mmol/L (3.5-5.1); Sodium 139 mmol/L (136-145)
[2023-10-17 06:30] LABS: Glucose Point of Care 142 mg/dL (70-110)
[2023-10-17] MEDS: amlodipine 10 mg Tablet PO (06:35)
[2023-10-17] MEDS: pantoprazole DR 40 mg Tablet PO (06:35)
[2023-10-17] MEDS: losartan 50 mg Tablet PO (06:35)
[2023-10-17] MEDS: propafenone 150 mg Tablet PO (08:37)
--- NOTE | 2023-10-17 11:09 | P.DS_ITS ---
Discharge Providers Date of Admission: 10/14/23 16:16 Date of Discharge: October 17, 2023 Attending Provider at Admission: Ru Sherwood MD Attending Provider at Discharge: Ru Sherwood MD Primary Care Provider: Avtar Ngo DO Diagnoses at Discharge Discharge Diagnosis (1) Pneumonia: Status: Acute Qualifiers: Laterality: bilateral Lung location: unspecified part of lung Pneumonia type: due to unspecified organism Qualified Code(s): J18.9 - Pneumonia, unspecified organism (2) Hypoxia: Status: Acute (3) HTN (hypertension): Status: Acute (4) Atrial fibrillation: Status: Acute Qualifiers: Atrial fibrillation type: longstanding persistent Qualified Code(s): I48.11 - Longstanding persistent atrial fibrillation (5) Acute respiratory failure with hypoxia: Status: Acute (6) Diabetes 1.5, managed as type 2: Status: Acute (7) NSTEMI (non-ST elevated myocardial infarction): Status: Acute Reason for Visit Reason for Visit: sob, low O2 Hospital Course Hospital Course Sheng Bernstein is a 83 year old male hypertension, type 2 diabetes mellitus, atrial fibrillation on propafenone, Xarelto, dyslipidemia, CHF who presents to [facility] as for the last few days he has been feeling unwell, short of breath, fatigue, malaise, subjective fevers.? Patient tells me that all his symptoms started roughly on Thursday, will when he felt unwell, he had episode of nausea and vomiting, reports abdominal distention, he does not have a bowel movement regularly, but his last bowel movement was 2 days ago he was regular, no bloody or black stools.? Since then he has been not feeling well, having subjective fevers, chills feeling short of breath, fatigue, malaise, no recurrent nausea, no vomiting, no recent travel, no sick contacts, patient in the ER waiting room was found to have an O2 sat in the 70s, here, he is on 3 L, not in respiratory distress no intercostal retractions no suprasternal retractions no nasal flaring he is able to speak full sentences without feeling short of breath but is on 3 L, denies lower extremity edema, no chest pain, This is a 83-year-old male, who presents [facility] for acute hypoxic respiratory failure secondary to pneumonia, received broad-spectrum antibiotic therapy, remained afebrile, cultures so far negative, will be discharged on 4 remaining days on Levaquin, albuterol inhaler, follow-up with primary care provider as outpatient, discharged on 2 L nasal cannula. Patient CT of his chest did show mild interstitial edema, a few reactive lymph nodes, with patchy bilateral perihilar infiltrates, follow-up with pulmonary as outpatient. Patient does have a small esophageal hiatal hernia, potentially etiology behind his respiratory failure could be possible aspiration pneumonia and or possible aspiration pneumonitis, continue to monitor as outpatient. Physical Exam Const: COMMON NORMALS: no acute distress and patient oriented x3 Resp: COMMON NORMALS: normal respiratory effort, No retractions, No use of accessory muscles and clear to auscultation bilaterally AUSCULTATION: clear to auscultation bilaterally Cardio: COMMON NORMALS: regular rate, regular rhythm, S1 normal heart sound present and S2 normal heart sound present RATE: regular rate RHYTHM: regular rhythm HEART SOUNDS: S1 normal heart sound present and S2 normal heart sound present GI: COMMON NORMALS: Normal to inspection, nondistended, normoactive bowel sounds present and non-tender Extremity: COMMON NORMALS: no pedal edema Neuro: COMMON NORMALS: patient oriented x3 Psych: COMMON NORMALS: mental status grossly normal Discharge Data Studies Completed and Pending Completed Studies During Hospitalization Category Date Time Status CT abdomen pelvis wo con [id number] Routine Cat Scan 10/14/23 18:[address] chest wo con [id number] Stat Cat Scan 10/14/23 14:27 Completed XR chest 1V portable [id number] Stat Exams 10/14/23 11:55 Completed CV. echo complete* [id number] Routine Ultrasound 10/16/23 14:23 Completed Pending at discharge Category Date Time Status Blood Culture Stat Lab 10/14/23 16:14 Results Sputum Culture and Gram Stain Stat Lab 10/14/23 18:27 Results Radiology Impressions Abdomen/Pelvis CT 10/14/23 18:06 IMPRESSION: 1. Bibasilar infiltrates or atelectasis in the dependent portions of the lungs. Small left effusion. 2. No acute abdominopelvic findings. 3. Scattered gas, fluid and stool in the bowel but without mechanical obstruction or acute inflammation. 4. Enlarged gallbladder. No visible stones or inflammatory changes. 5. Other chronic findings as described Laboratory Results WBC 6.96 10^3/uL (3.29-11.43) 10/17/23 04:05 RBC 3.63 10^6/uL (3.85-5.65) L 10/17/23 04:05 Hgb 10.10 g/dL (11.27-16.99) L 10/17/23 04:05 Hct 31.7 % (37-53) L 10/17/23 04:05 MCV 87.3 fl (82-101) 10/17/23 04:05 MCH 27.8 pg (27-33) 10/17/23 04:05 MCHC 31.9 g/dL (30-55) 10/17/23 04:05 RDW 14.8 % (12.1-15.1) 10/17/23 04:05 Plt Count 256 10^3/cmm (157-399) 10/17/23 04:05 MPV 9.7 fL (7.4-10.4) 10/17/23 04:05 Neut % (Auto) 44.8 % 10/17/23 04:05 Lymph % (Auto) 39.2 % 10/17/23 04:05 [place] % (Auto) 6.0 % 10/17/23 04:05 Eos % (Auto) 8.8 % 10/17/23 04:05 Baso % (Auto) 0.6 % 10/17/23 04:05 Neut # (Auto) 3.12 10^3/uL (1.8-7.7) 10/17/23 04:05 Lymph # (Auto) 2.7 10^3/uL (0.8-4.8) 10/17/23 04:05 [place] # (Auto) 0.4 10^3/uL (0.2-0.9) 10/17/23 04:05 Eos # (Auto) 0.6 10^3/uL (0.0-0.8) 10/17/23 04:05 Baso # (Auto) 0.0 10^3/uL (0.0-0.1) 10/17/23 04:05 Nucleated RBC % (auto) 0 % 10/17/23 04:05 Nucleated RBCs # 0.0 /100WBC 10/17/23 04:05 PT 22.30 SECONDS (12.1-14.9) H D 10/15/23 05:30 INR 1.89 (0.8-1.2) H 10/15/23 05:30 D-Dimer 0.68 ug/mLFEU (0-0.59) H 10/14/23 16:10 Specimen Type Arterial 10/14/23 16:24 Sample Site Radial, right 10/14/23 16:24 ABG pH 7.43 (7.35-7.45) 10/14/23 16:24 ABG pCO2 39.2 mmHg (35-45) 10/14/23 16:24 ABG pO2 55.6 mmHg (80.0-100.0) L 10/14/23 16:24 ABG PO2/FiO2 Ratio 0 10/14/23 16:24 ABG HCO3 25.7 mmol/L (22-26) 10/14/23 16:24 ABG Base Excess 1.3 mmol/L (-2.0-2.0) 10/14/23 16:24 Triston Test Pos 10/14/23 16:24 Hematocrit 35.2 % (42-52) L 10/14/23 16:24 O2 Delivery Device Nc 10/14/23 16:24 O2 Liters/Min 5.0 % 10/14/23 16:24 FiO2 40.0 % 10/14/23 16:24 Supervisor Pre Wave ID Dalila 10/14/23 16:24 Sodium 139 mmol/L (136-145) 10/17/23 04:05 Potassium 3.9 mmol/L (3.5-5.1) 10/17/23 04:05 Chloride 105 mmol/L (98-107) 10/17/23 04:05 Carbon Dioxide 22 mmol/L (22-29) 10/17/23 04:05 Anion Gap 15.9 (5-19) 10/17/23 04:05 BUN 31 mg/dL (8-23) H 10/17/23 04:05 Creatinine 1.5 mg/dL (0.7-1.2) H 10/17/23 04:05 GFR Calculation Not Reportable 10/17/23 04:05 Glucose 133 mg/dL (65-115) H 10/17/23 04:05 POC Glucose 142 mg/dL (70-110) H 10/17/23 06:23 Estimat Average Glucose 166 10/15/23 05:30 Hemoglobin A1c 7.4 % (4.0-6.0) H 10/15/23 05:30 Calculated Osmolality 296 mOsm/kg (285-295) H 10/17/23 04:05 Lactic Acid 0.8 mmol/L (0.5-2.2) 10/15/23 05:30 Calcium 8.4 mg/dL (8.5-10.5) L 10/17/23 04:05 Phosphorus 2.7 mg/dL (2.5-4.5) 10/17/23 04:05 Magnesium 2.1 mg/dL (1.7-2.3) 10/17/23 04:05 Total Bilirubin 0.8 mg/dL (0.15-1.2) 10/14/23 12:15 AST 7 U/L (0-40) 10/14/23 12:15 ALT 7 U/L (0-41) 10/14/23 12:15 Alkaline Phosphatase 93 U/L (40-130) 10/14/23 12:15 Troponin T Baseline 29 ng/L (0-15) H 10/14/23 16:10 Troponin T 120 Minute 31.03 ng/L (0-15) H 10/14/23 18:10 Delta Troponin T 2.03 ABS# (0-10) 10/14/23 18:10 Troponin T Hi Sens 6Hr 31.05 ng/L (0-15) H 10/14/23 22:00 Troponin T Hi Sens 6Hr Delta 2.05 ng/L (0-12) 10/14/23 22:00 C-Reactive Protein 393.0 mg/L (0.0-4.9) H 10/14/23 16:10 NT-Pro-B Natriuret Pep Cancelled 10/14/23 16:10 Total Protein 7.2 g/dL (6.6-8.7) 10/14/23 12:15 Albumin 3.4 g/dL (3.5-5.2) L 10/14/23 12:15 Globulin 3.8 g/dL (1.3-4.6) 10/14/23 12:15 Triglycerides 96 mg/dL (0-150) 10/15/23 05:30 Cholesterol 91 mg/dL (0-200) 10/15/23 05:30 LDL Cholesterol, Calc 41 mg/dL (50-129) L 10/15/23 05:30 HDL Cholesterol 31 mg/dL (60-100) L 10/15/23 05:30 LDL/HDL Ratio 1.32 RATIO (0.00-3.22) 10/15/23 05:30 Cholesterol/HDL Ratio 2.94 mg/dL (1.0-5.00) 10/15/23 05:30 Lipase 9 U/L (13-60) L 10/14/23 16:10 Procalcitonin 1.27 ng/mL (0-0.5) H 10/14/23 16:10 TSH 0.64 uIU/mL (0.27-4.20) 10/15/23 05:30 Nasal Influ A H1 2009 PCR Not detected (NOT DETECT) 10/14/23 18:45 Adenovirus (PCR) Not detected (NOT DETECT) 10/14/23 18:45 C. pneumoniae DNA (PCR) Not detected (NOT DETECT) 10/14/23 18:45 Coronavirus 229E (PCR) Not detected (NOT DETECT) 10/14/23 18:45 Human Metapneumovir PCR Not detected (NOT DETECT) 10/14/23 18:45 Influenza A (H1) PCR Not detected (NOT DETECT) 10/14/23 18:45 Influenza A (H3) PCR Not detected (NOT DETECT) 10/14/23 18:45 Influenza Type A Ag negative (Negative) 10/14/23 13:41 Influenza Type A (PCR) Not detected (NOT DETECT) 10/14/23 18:45 Influenza Type B Ag negative (Negative) 10/14/23 13:41 Influenza Type B (PCR) Not detected (NOT DETECT) 10/14/23 18:45 M. pneumoniae (PCR) Not detected (NOT DETECT) 10/14/23 18:45 Parainfluenza 1 (PCR) Not detected (NOT DETECT) 10/14/23 18:45 Parainfluenza 2 (PCR) Not detected (NOT DETECT) 10/14/23 18:45 Parainfluenza 3 (PCR) Not detected (NOT DETECT) 10/14/23 18:45 Parainfluenza 4 (PCR) Not detected (NOT DETECT) 10/14/23 18:45 RSV Type A (PCR) Not detected (NOT DETECT) 10/14/23 18:45 RSV Type B (PCR) Not detected (NOT DETECT) 10/14/23 18:45 Entero/Rhino (PCR) Not detected (NOT DETECT) 10/14/23 18:45 SARS-CoV-2 (PCR) Not detected (NOT DETECT) 10/14/23 18:45 SARS-CoV-2 Ag (Rapid) negative (Negative) 10/14/23 13:41 Vitals Last Vital Signs Temp 97.8 F 10/17/23 07:52 Pulse 72 10/17/23 08:00 Resp 18 10/17/23 08:00 BP 120/73 10/17/23 07:52 Pulse Ox 93 10/17/23 08:00 O2 Del Method Nasal Cannula 10/17/23 08:00 O2 Flow Rate 2 10/17/23 08:00 Discharge Plan Discharge Patient Disposition: Home Condition: Stable Prescriptions: New levofloxacin 750 mg tablet 750 mg PO DAILY 4 Days Qty: 4 0RF Continued losartan 50 mg tablet 50 mg PO DAILY@0700 terazosin 5 mg capsule 5 mg PO BEDTIME nitroglycerin [Nitrostat] 0.4 mg tablet, sublingual 0.4 mg SUBLINGUAL Q5M PRN (Reason: Chest Pain) amlodipine 10 mg tablet 10 mg PO DAILY@0730 furosemide 40 mg tablet 40 mg PO DAILY@0730 propafenone 150 mg tablet 150 mg PO TID Qty: 270 3RF potassium chloride 10 mEq capsule, extended release 10 meq PO DAILY@0730 diphenhydramine-acetaminophen [Tylenol PM Extra Strength] 25-500 mg Tablet 2 tab PO BEDTIME PRN (Reason: Sleep) levothyroxine [Euthyrox] 175 mcg tablet 175 mcg PO BEDTIME omeprazole magnesium [Prilosec OTC] 20 mg Tablet,Delayed Release (Dr/Ec) 20 mg PO QAM Changed Xarelto 20 mg tablet 20 mg PO QPM Qty: 90 2RF albuterol sulfate 90 mcg/actuation Hfa Aerosol Inhaler 1 puff INHALATION QID PRN (Reason: Shortness Of Breath) 30 Days Qty: 8.5 0RF Discharge Orders: Discharge Order (Routine); Ordered 10/17/23 Ordered By: Ru Sherwood Other Ambulatory Orders: DME: Oxygen (Order) Location: None Selected Ordered By: Ru Sherwood Referrals: Datar,Fabien Ryder, MD [Physician] - 7-10 days (We have notified your physician's clinic of the need for a follow-up appointment to be scheduled. If you have not heard from them within the next 2 business days, please call them directly. ) Avtar Ngo DO [Primary Care Provider] - (We have notified your physician's clinic of the need for a follow-up appointment to be scheduled. If you have not heard from them within the next 2 business days, please call them directly. ) Discharge Diet: Cardiac Discharge Activity: Resume usual activity Patient Instructions: Levofloxacin (By mouth), Community Acquired Pneumonia (DC), Opioid Safety, Pain Management Discharge Attestations Time Spent in Discharge Care*: greater than 30 min Quality Metrics Clinical Quality Measures [ No reported AMI, CVA or VTE this stay] Coding Level of Care Code 16413 Total time (in minutes) for Discharge: 45 Diagnoses Pneumonia J18.9 Laterality: bilateral Lung location: unspecified part of lung Pneumonia type: due to unspecified organism Hypoxia R09.02 HTN (hypertension) I10 Atrial fibrillation I48.11 Atrial fibrillation type: longstanding persistent Acute respiratory failure with hypoxia 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
== END 2023-10-17 10:37 | disposition home or self-care (01) | DRG 193 ==
LOC: ER 15:57 → MEDSURG 16:16
PROVIDERS: Admitting Provider Family Medicine; Emergency Provider Emergency Medicine; PCP Internal Medicine; Visit Provider Family Medicine
DX: J18.9 Pneumonia, unspecified organism (principal); J96.01 Acute respiratory failure with hypoxia; I48.11 Longstanding persistent atrial fibrillation; I11.0 Hypertensive heart disease with heart failure; I50.9 Heart failure, unspecified; E11.9 Type 2 diabetes mellitus without complications; E78.5 Hyperlipidemia, unspecified; N40.0 Benign prostatic hyperplasia without lower urinary tract symptoms; Z79.01 Long term (current) use of anticoagulants; K44.9 Diaphragmatic hernia without obstruction or gangrene
CPT/HCPCS: 36415; 36416; 36600; 71045; 71250; 74176; 80048; 80053; 80061; 82803; 82962; 83036; 83605; 83690; 83735; 83880; 84100; 84145; 84443; 84484; 85025; 85378; 85610; 86140; 87040; 87070; 87205; 87426; 87486; 87581; 87633; 87804; 92610; 93005; 93306; 94640; 94760; 96374; 99285; J2185; J2405; J3370

== ENCOUNTER → 2023-12-08 12:30 | Outpatient (BNVA) | payer MEDICARE, SELFPAY | PROVIDERS: PCP Internal Medicine; Visit Provider Internal Medicine | DX: I11.0 Hypertensive heart disease with heart failure (principal); I50.9 Heart failure, unspecified; I48.11 Longstanding persistent atrial fibrillation; Z79.01 Long term (current) use of anticoagulants; E13.9 Other specified diabetes mellitus without complications; E78.5 Hyperlipidemia, unspecified; Z87.891 Personal history of nicotine dependence | CPT/HCPCS: 99214 ==

== ENCOUNTER 2024-02-14 09:07 | Emergency (ER) | payer MEDICARE, SELFPAY ==
[2024-02-14] VITALS (29 sets, daily range): BP systolic 135–143; BP diastolic 63–78; PULSE 72–85; RESP 19–33; TEMP 36.7; O2SAT 85–99; BMI 26.4
--- NOTE | 2024-02-14 09:17 | ECG_ITS ---
[facility] Test Date: 2024-02-14 Pat Name: Sheng Bernstein Department: Room: Gender: Male [employer] Guide: : 1940 Requested By: Judy Avalos Order Number: [id number] Ardon MD: Amy Greenwood M.D. Measurements Intervals Mary Esther Rate: 83 P: 26 [place]: 253 QRS: -47 QRSD: 120 T: 25 QT: 320 QTc: 378 Interpretive Statements SINUS RHYTHM WITH FIRST DEGREE AV BLOCK LEFT AXIS DEVIATION [QRS AXIS < -30] POSSIBLE ANTERIOR MYOCARDIAL INFARCTION , PROBABLY OLD [30 ms Q WAVE IN V3/V4, OR R < 0.2 mV IN V4] Compared to ECG 10/14/2023 23:27:59 First degree AV block now present Myocardial infarct finding now present Ectopic atrial rhythm no longer present Intraventricular conduction delay no longer present Electronically Signed On 02-14-2024 21:41:21 CDT by Amy Greenwood M.D. [id number]
--- NOTE | 2024-02-14 09:18 | XRR_ITS ---
PROCEDURE INFORMATION: Exam: XR Abdomen Exam date and time: 02/14/2024 9:36 AM Age: 83 years old Clinical indication: Abdominal tenderness; Abdominal pain TECHNIQUE: Imaging protocol: Radiologic exam of the abdomen. Views: 3 or more views. COMPARISON: CT chest wo con [id number] 10/14/2023 2:46 PM FINDINGS: Lungs: Small amount of scarring, atelectasis, and/or pneumonitis in the left lung base. Otherwise, unremarkable. Heart/Mediastinum: Normal heart size. Gastrointestinal tract: No convincing evidence of bowel obstruction. Distended, but nondilated ascending colon. Otherwise, unremarkable. Intraperitoneal space: No free air. Vasculature: Several small calcifications in the pelvis are highly likely to be phleboliths. However, in the proper clinical setting a distal ureteral calculus may need to be considered. Bones/joints: Mild scoliosis with moderate and severe spondylosis. XR/XR acute abdomen series [id number] IMPRESSION: 1. Distended, but nondilated ascending colon. 2. No other acute abdominal or pelvic findings. 3. Small amount of scarring, atelectasis, and/or pneumonitis in the left lung base.
--- NOTE | 2024-02-14 09:20 | W.ED.SOB ---
HPI - SOB/Dyspnea General: Chief Complaint: Shortness of Breath/Dyspnea Stated Complaint: low o2 Time Seen by Provider: 02/14/24 09:14 History of Present Illness: HPI Narrative: 83-year-old male with a history of COPD (not formally diagnosed but treated as such , hypertension, congestive heart failure, atrial fibrillation on Xarelto and hypothyroidism who presents to the emergency room with shortness of breath, cough, nausea and vomiting. [facility] ED PFSH: Medical History BPH (benign prostatic hyperplasia) PUD (peptic ulcer disease) Anticoagulation adequate with anticoagulant therapy Xarelto HTN (hypertension) Atrial fibrillation Diabetes 1.5, managed as type 2 Dyslipidemia CHF (congestive heart failure) Surgical History S/P appendectomy Family History Father Diabetes Social History Smoking and tobacco/nicotine status: former use of tobacco/nicotine Household members: spouse Marital status: service: No Current occupational status: retired Physical Exam Narrative: EXAM NARRATIVE: General: Alert, no acute distress. Skin: Warm, dry. Head: Normocephalic, atraumatic. Neck: Supple, trachea midline. Eye: Extraocular movements are intact. Ears, nose, mouth and throat: Dry oral mucosa Cardiovascular: Regular, Normal peripheral perfusion. Respiratory: Lungs are clear to auscultation, respirations are non-labored, breath sounds are equal, Symmetrical chest wall expansion. Gastrointestinal: Soft, Nontender, Non distended, Normal bowel sounds. Musculoskeletal: Normal ROM, no deformity. Neurological: Alert and oriented, No focal neurological deficit observed. Psychiatric: Cooperative, appropriate mood & affect. Course Vital Signs: Vital signs: Vital Signs Temperature 98.0 F 02/14/24 09:12 Pulse Rate 79 02/14/24 10:30 Respiratory Rate 28 H 02/14/24 10:30 Blood Pressure 135/67 02/14/24 10:30 Pulse Oximetry 95 02/14/24 10:30 Oxygen Delivery Me thod Nasal Cannula 02/14/24 10:20 Oxygen Flow Rate 4 02/14/24 10:20 MDM - SOB/Dyspnea Medical Decision Making Differential diagnosis for patient with shortness of breath. Pneumonia. Bronchitis. Asthma or COPD with acute exacerbation. Acute coronary syndrome / OH. Pulmonary embolism. Anxiety. Congestive heart failure. Viral infections including influenza and Covid-19. Atrial fibrillation. Anxiety. Pleural effusion. Pneumothorax. Workup: Lab work, chest X-ray and EKG ordered to evaluate, rule in and rule out above pathologies. Flu and COVID were ordered as well. Lab Review: Laboratory results were reviewed and interpreted by myself the emergency room physician. Patient is influenza positive. No leukocytosis. Stable chronic renal disease. Creatinine is 1.9 today. It usually ranges between 1.5 and 1.9. EKG: Time 9:20 AM. Rate 83. Normal sinus rhythm, No ST-T changes, no ectopy, first degree AV Block, EP Interpretation. This was reviewed and interpreted by myself the ER physician. Interpreted at 9:21 AM. Chest x-ray: No acute process. No infiltrate. No pneumothorax. Stable cardiomegaly. This was reviewed and interpreted by myself the ER physician. Reexamination: Patient says he feels quite a bit better. He is still requiring some oxygen. No increased work of breathing on 4 L. No altered mental status. No focal motor deficits. We discussed admission, but he says if he can get oxygen for home he would rather just go home. Lab Data 02/14/24 09:27 02/14/24 09:27 Labs/Radiology: Radiology Impressions Chest/Abdomen X-ray 02/14/24 09:18 IMPRESSION: 1. Distended, but nondilated ascending colon. 2. No other acute abdominal or pelvic findings. 3. Small amount of scarring, atelectasis, and/or pneumonitis in the left lung base. Laboratory Results WBC 11.36 10^3/uL (3.29-11.43) 02/14/24 09:27 RBC 4.31 10^6/uL (3.85-5.65) 02/14/24 09:27 Hgb 12.10 g/dL (11.27-16.99) 02/14/24 09:27 Hct 37.4 % (37-53) 02/14/24 09:27 MCV 86.8 fl (82-101) 02/14/24 09: MCH 28.1 pg (27-33) 02/14/24 09: MCHC 32.4 g/dL (30-55) 02/14/24: RDW 15.5 % (12.1-15.1) H 02/14/24 09: Plt Count 197 10^3/cmm (157-399) 02/14/24: MPV 8.9 fL (7.4-10.4) 02/14/24 09: Neut % (Auto) 74.8 % 02/14/24 09: Lymph % (Auto) 21.0 % 02/14/24 09: [place] % (Auto) 3.1 % 02/14/24: Eos % (Auto) 0.4 % 02/14/24: Baso % (Auto) 0.3 % 02/14/24: Neut # (Auto) 8.51 10^3/uL (1.8-7.7) H 02/14/24: Lymph # (Auto) 2.4 10^3/uL (0.8-4.8) 02/14/24 09: [place] # (Auto) 0.4 10^3/uL (0.2-0.9) 02/14/24: Eos # (Auto) 0.0 10^3/uL (0.0-0.8) 02/14/24: Baso # (Auto) 0.0 10^3/uL (0.0-0.1) 02/14/24: Nucleated RBC % (auto) 0 % 02/14/24: Nucleated RBCs # 0.0 /100WBC 02/14/24: Specimen Type Arterial 02/14/24 09:30 Sample Site Brachial, right 02/14/24 09:30 ABG pH 7.40 (7.35-7.45) 02/14/24 09:30 ABG pCO2 40.7 mmHg (35-45) 02/14/24 09:30 ABG pO2 62.6 mmHg (80.0-100.0) L 02/14/24 09:30 ABG PO2/FiO2 Ratio 0 02/14/24 09:30 ABG HCO3 24.9 mmol/L (22-26) 02/14/24 09:30 ABG O2 Saturation 92.9 02/14/24 09:30 ABG Base Excess 0.0 mmol/L (-2.0-2.0) 02/14/24 09:30 Triston Test N/a 02/14/24 09:30 A-a O2 Gradient 14.9 mmHg (5-10) H 02/14/24 09:30 Hematocrit 37.2 % (42-52) L 02/14/24 09:30 Hgb O2 Saturation 90.8 % (95-100) L 02/14/24 09:30 Carboxyhemoglobin 1.7 %THgb (0.4-20.1) 02/14/24 09:30 Methemoglobin 0.5 % (0.4-1.5) 02/14/24 09:30 Total Hemoglobin 12.1 g/dL (14-18) L 02/14/24 09:30 Sodium 137.0 mmol/L (131-143) 02/14/24 09:30 Potassium 4.2 mmol/L (3.5-5.0) 02/14/24 09:30 Glucose 141.0 mg/dL (70-115) H 02/14/24 09:30 Ionized Calcium 1.1 mmol/L (1.1-1.4) 02/14/24 09:30 O2 Delivery Device Nc 02/14/24 09:30 O2 Liters/Min 3.0 % 02/14/24 09:30 FiO2 32.0 % 02/14/24 09:30 Lead Loader ID Amh 02/14/24 09:30 Sodium 133 mmol/L (136-145) L 02/14/24 09:27 Potassium 4.4 mmol/L (3.5-5.1) 02/14/24 09:27 Chloride 94 mmol/L (98-107) L 02/14/24 09:27 Carbon Dioxide 23 mmol/L (22-29) 02/14/24 09:27 Anion Gap 20.4 (5-19) H 02/14/24 09:27 BUN 28 mg/dL (8-23) H 02/14/24 09:27 Creatinine 1.9 mg/dL (0.7-1.2) H 02/14/24 09:27 GFR Calculation Not Reportable 02/14/24 09:27 Glucose 135 mg/dL (65-115) H 02/14/24 09:27 Calculated Osmolality 284 mOsm/kg (285-295) L 02/14/24 09:27 Lactic Acid 1.2 mmol/L (0.5-2.2) 02/14/24 09:27 Calcium 8.6 mg/dL (8.5-10.5) 02/14/24 09:27 Total Bilirubin 0.6 mg/dL (0.15-1.2) 02/14/24 09:27 AST 11 U/L (0-40) 02/14/24 09:27 ALT 7 U/L (0-41) 02/14/24 09:27 Alkaline Phosphatase 95 U/L (40-130) 02/14/24 09:27 Troponin T Baseline 40 ng/L (0-15) H 02/14/24 09:27 C-Reactive Protein 186.6 mg/L (0.0-4.9) H 02/14/24 09:27 NT-Pro-B Natriuret Pep 805 pg/mL (0-450) H 02/14/24 09:27 Total Protein 7.6 g/dL (6.6-8.7) 02/14/24 09:27 Albumin 3.7 g/dL (3.5-5.2) 02/14/24 09:27 Globulin 3.9 g/dL (1.3-4.6) 02/14/24 09:27 Amylase 46 U/L (28-100) 02/14/24 09:27 Procalcitonin 0.31 ng/mL (0-0.5) 02/14/24 09:27 Influenza Type A Ag positive (Negative) H 02/14/24 09:40 Influenza Type B Ag negative (Negative) 02/14/24 09:40 XR interpretation done by ED provider, pending radiology final review Other Data Assessment and plan Influenza A Hypoxemia Dehydration COPD with acute exacerbation - Updrafts and Solu-Medrol were given in the emergency room. - Normal saline bolus. 1000 mL. - Arranging for home oxygen. Offered admission. Patient prefers to go home - Discharged home - Discussed findings and plan with patient. Answered any questions. - All laboratory values were reviewed and interpreted personally by myself, the ER physician - All imaging was reviewed and interpreted personally by myself, the ER physician. - Evaluation and treatment of this problem were appropriate in the emergency setting Discharge Plan Discharge Patient Disposition: Home Clinical Impression: Influenza A, Hypoxemia, Dehydration, Acute exacerbation of chronic obstructive pulmonary disease Condition: Stable Prescriptions: New prednisone 20 mg tablet 60 mg PO DAILY Qty: 20 0RF Rx Instructions: 3 tabs (60 mg) x 3 days. 2 tabs (40 mg) x 3 days. 1 tab (20 mg) x 3 days. 1/2 tab (10 mg) x 4 days Tamiflu 75 mg capsule 75 mg PO BID 5 Days Qty: 10 0RF ondansetron 8 mg tablet,disintegrating 8 mg PO .q6 PRN (Reason: nausea and vomiting) Qty: 14 0RF No Action losartan 50 mg tablet 50 mg PO DAILY@0700 terazosin 5 mg capsule 5 mg PO BEDTIME nitroglycerin [Nitrostat] 0.4 mg tablet, sublingual 0.4 mg SUBLINGUAL Q5M PRN (Reason: Chest Pain) amlodipine 10 mg tablet 10 mg PO DAILY@0730 furosemide 40 mg tablet 40 mg PO DAILY@0730 propafenone 150 mg tablet 150 mg PO TID Qty: 270 3RF potassium chloride 10 mEq capsule, extended release 10 meq PO DAILY@0730 diphenhydramine-acetaminophen [Tylenol PM Extra Strength] 25-500 mg Tablet 2 tab PO BEDTIME PRN (Reason: Sleep) levothyroxine [Euthyrox] 175 mcg tablet 175 mcg PO BEDTIME omeprazole magnesium [Prilosec OTC] 20 mg Tablet,Delayed Release (Dr/Ec) 20 mg PO QAM Xarelto 20 mg tablet 20 mg PO QPM Qty: 90 2RF albuterol sulfate 90 mcg/actuation Hfa Aerosol Inhaler 1 puff INHALATION QID PRN (Reason: Shortness Of Breath) 30 Days Qty: 8.5 0RF doxycycline hyclate 100 mg capsule 100 mg PO BID prednisone 20 mg tablet 20 mg PO DAILY Discharge Orders: Discharge ED (Routine); Ordered 02/14/24 Ordered By: Judy Winslow Referrals: Avtar Ngo, [Primary Care Provider] - (You have been screened and evaluated and felt safe for discharge. Health conditions do change or evolve sometimes and as such it is important that you follow up with your Primary Doctor to be re checked, 3-5 days is a general good time frame for follow up. You are always welcome to return to the ED for re assessment if your symptoms are worsening or you have new concerns) Discharge Diet: Usual diet Discharge Activity: Increase activity as tolerated Patient Instructions: Influenza (ED), Using Oxygen at Home (ED), COPD (Chronic Obstructive Pulmonary Disease) (ED) Coding Level of Care Code ED [employer] Technician for [place]
[2024-02-14] MEDS: albuterol 2.5 mg/3 mL Neb INHALATION (09:30)
[2024-02-14] MEDS: ipratropium-albuterol 3 mL Neb INHALATION (09:30)
[2024-02-14 09:31] LABS: Basophils % 0.3 %; Eosinophils % 0.4 %; Hematocrit 37.4 % (37-53); Lymphocytes # 2.4 10^3/uL (0.8-4.8); Mean Corpuscular HGB Conc 32.4 g/dL (30-55); Mean Corpuscular Hemoglobin 28.1 pg (27-33); Mean Corpuscular Volume 86.8 fl (82-101); Mean Platelet Volume 8.9 fL (7.4-10.4); Monocytes # 0.4 10^3/uL (0.2-0.9); Monocytes % 3.1 %; Neutrophils # 8.51 10^3/uL (1.8-7.7); Neutrophils % 74.8 %; Nucleated Red Blood Cells % 0 %; Platelet Count 197 10^3/cmm (157-399); Red Blood Count 4.31 10^6/uL (3.85-5.65); Red Cell Distribution Width 15.5 % (12.1-15.1); White Blood Count 11.36 10^3/uL (3.29-11.43)
[2024-02-14 09:40] LABS: ABG PCO2 40.7 mmHg (35-45); Alveolar-Arterial Oxygen Gradi 14.9 mmHg (5-10); Arterial Blood Gas Hematocrit 37.2 % (42-52); Blood Gas Operator Identificat AMH; Blood Gas Sample Site Brachial, right; Blood Gas Sample Type Arterial; Carboxyhemoglobin 1.7 %THgb (0.4-20.1); HCO3 ABG 24.9 mmol/L (22-26); HGB O2 Sat 90.8 % (95-100); Ionized Calcium Level - ABG 1.1 mmol/L (1.1-1.4); Methemoglobin 0.5 % (0.4-1.5); Oxygen Device NC; Oxygen Saturation ABG 92.9; PO2 ABG 62.6 mmHg (80.0-100.0); PO2 FiO2 Ratio Arterial Blood 0; Potassium Level - ABG 4.2 mmol/L (3.5-5.0); Total Hemoglobin 12.1 g/dL (14-18)
[2024-02-14] MEDS: methylPREDNISolone sod succ 125 mg/2 mL INJ IVP (09:46)
[2024-02-14 09:51] LABS: Lactic Sepsis W/Reflex 1.2 mmol/L (0.5-2.2)
[2024-02-14 09:53] LABS: Influenza A by IFA positive (Negative); Influenza B by IFA negative (Negative)
[2024-02-14 09:56] LABS: Troponin(5th) Baseline 40 ng/L (0-15)
[2024-02-14 10:06] LABS: NT Pro B Type Natriuretic Pept 805 pg/mL (0-450); Procalcitonin 0.31 ng/mL (0-0.5)
[2024-02-14] MEDS: sodium chloride 0.9% 1,000 ML 999 ML IV (10:13)
[2024-02-14 10:17] LABS: Alanine Aminotransferase 7 U/L (0-41); Albumin Level 3.7 g/dL (3.5-5.2); Alkaline Phosphatase 95 U/L (40-130); Amylase 46 U/L (28-100); Anion Gap 20.4 (5-19); Aspartate Amino Transferase 11 U/L (0-40); Blood Urea Nitrogen 28 mg/dL (8-23); C Reactive Protein 186.6 mg/L (0.0-4.9); Calcium 8.6 mg/dL (8.5-10.5); Carbon Dioxide 23 mmol/L (22-29); Chloride 94 mmol/L (98-107); Globulin 3.9 g/dL (1.3-4.6); Glucose 135 mg/dL (65-115); Osmolality Calculated 284 mOsm/kg (285-295); Potassium 4.4 mmol/L (3.5-5.1); Sodium 133 mmol/L (136-145); Total Bilirubin 0.6 mg/dL (0.15-1.2); Total Protein 7.6 g/dL (6.6-8.7)
[2024-02-14 10:28] LABS: Creatinine Clr Calc Pharmacy 32.3022
[2024-02-14 11:29] LABS: Adenovirus Not Detected (NOT DETECT); Chlamydia Pneumoniae Not Detected (NOT DETECT); Coronavirus 229E,HKU1,NL63,OC4 Not Detected (NOT DETECT); Human Metapneumovirus Not Detected (NOT DETECT); Human Rhinovirus/Enterovirus Not Detected (NOT DETECT); Influenza A Detected (NOT DETECT); Influenza A H1 Not Detected (NOT DETECT); Influenza A H1-2009 Not Detected (NOT DETECT); Influenza A H3 Detected (NOT DETECT); Influenza B Not Detected (NOT DETECT); Mycoplasma Pneumoniae Not Detected (NOT DETECT); Parainfluenza Virus Type 1 Not Detected (NOT DETECT); Parainfluenza Virus Type 2 Not Detected (NOT DETECT); Parainfluenza Virus Type 3 Not Detected (NOT DETECT); Parainfluenza Virus Type 4 Not Detected (NOT DETECT); Respiratory Syncytial Virus A Not Detected (NOT DETECT); Respiratory Syncytial Virus B Not Detected (NOT DETECT); SARS-COV-2 Not Detected (NOT DETECT)
[2024-02-14 11:40] LABS: Influenza A Detected (NOT DETECT); Influenza A H1 Not Detected (NOT DETECT); Influenza A H1-2009 Not Detected (NOT DETECT); Influenza A H3 Detected (NOT DETECT); Influenza B Not Detected (NOT DETECT); Results from Genmark
== END 2024-02-14 11:49 | disposition home or self-care (01) ==
PROVIDERS: Emergency Provider Emergency Medicine; PCP Internal Medicine
DX: J10.1 Influenza due to other identified influenza virus with other respiratory manifestations (principal); R09.02 Hypoxemia; E86.0 Dehydration; J44.1 Chronic obstructive pulmonary disease with (acute) exacerbation; I11.0 Hypertensive heart disease with heart failure; I50.9 Heart failure, unspecified; E11.9 Type 2 diabetes mellitus without complications; E78.5 Hyperlipidemia, unspecified; Z87.891 Personal history of nicotine dependence; Z11.52 Encounter for screening for COVID-19
CPT/HCPCS: 36415; 36600; 74022; 80051; 80053; 82150; 82330; 82805; 83605; 83880; 84145; 84484; 85025; 86140; 87631; 87635; 87804; 93005; 94640; 96361; 96374; 99285; J2930; J7030; J7613

== ENCOUNTER 2024-02-22 09:13 | Inpatient (IN) | payer MEDICARE, SELFPAY ==
[2024-02-22] VITALS (17 sets, daily range): BP systolic 111–157; BP diastolic 65–92; PULSE 66–117; RESP 16–25; TEMP 36.4–37.6; O2SAT 85–95; BMI 27.3; BMI 27.6
--- NOTE | 2024-02-22 09:32 | XRR_ITS ---
PROCEDURE INFORMATION: Exam: XR Chest Exam date and time: 02/22/2024 9:46 AM Age: 83 years old Clinical indication: Cough and dyspnea; Additional info: Dyspnea/cough TECHNIQUE: Imaging protocol: Radiologic exam of the chest. Views: 1 view. COMPARISON: CT chest con [id number] 10/14/2023 2:46 PM FINDINGS: Lungs: Chronic interstitial fibrosis, greatest in the left lower lobe. Pleural spaces: Unremarkable. No pleural effusion. No pneumothorax. Heart/Mediastinum: See Vasculature finding. Vasculature: Mild cardiomegaly and uncoiling of the thoracic aorta. Bones/joints: Unremarkable. XR/XR chest 1V portable [id number] IMPRESSION: No acute cardiopulmonary disease.
--- NOTE | 2024-02-22 09:33 | ECG_ITS ---
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 Measurements Intervals [place] Rate: 103 P: 67 MT: 226 QRS: -50 QRSD: 128 T: 85 QT: 337 QTc: 442 Interpretive Statements SINUS TACHYCARDIA WITH FIRST DEGREE AV BLOCK LEFT ANTERIOR FASCICULAR BLOCK [QRS AXIS <= -45, QR IN I, RS IN II] MINIMAL ST DEPRESSION [0.025+ mV ST DEPRESSION] Compared to ECG 02/14/2024 08:20:46 Left anterior fascicular block now present ST (T wave) deviation now present Sinus rhythm no longer present Left-axis deviation no longer present Myocardial infarct finding no longer present Electronically Signed On 02-22-2024 11:25:38 CDT by Tung Hutchinson M.D. [id number]
[2024-02-22 09:43] LABS: ABG PCO2 35.7 mmHg (35-45); ABG PH Result 7.48 (7.35-7.45); Alveolar-Arterial Oxygen Gradi 5.4 mmHg (5-10); Arterial Blood Gas Hematocrit 36.3 % (42-52); Base Excess ABG 3.3 mmol/L (-2.0-2.0); Blood Gas Allen Test Pos; Blood Gas Operator Identificat WALCI; Blood Gas Sample Site Radial, right; Blood Gas Sample Type Arterial; Carboxyhemoglobin 1.3 %THgb (0.4-20.1); HCO3 ABG 26.7 mmol/L (22-26); HGB O2 Sat 91.9 % (95-100); Ionized Calcium Level - ABG 1.1 mmol/L (1.1-1.4); Methemoglobin 0.6 % (0.4-1.5); Oxygen Device NC; Oxygen Saturation ABG 93.6; PO2 ABG 61.3 mmHg (80.0-100.0); Potassium Level - ABG 3.8 mmol/L (3.5-5.0); Total Hemoglobin 11.9 g/dL (14-18)
--- NOTE | 2024-02-22 09:47 | PC.NURSE ---
PATIENT IV STARTED WITH CHLORAPREP.
--- NOTE | 2024-02-22 09:51 | ED_ITS ---
HPI - SOB/Dyspnea 2 General: Chief Complaint: Shortness of Breath/Dyspnea Stated Complaint: low o2 Time Seen by Provider: 02/22/24 09:31 Source: patient Mode of arrival: ambulatory History of Present Illness: HPI Narrative: 83-year-old male presents to the emergen cy room with complaints of shortness of breath. He has a history of mild COPD is not currently on any oxygen however he is requiring 5 L on arrival here with sats in the mid to low 80s. Denies fever sweats or chills slightly productive cough of clear mucus. He has had some myalgias and low-grade fevers. MD elicited complaint: shortness of breath and cough Pertinent past history: COPD Onset (ago): day(s) Timing: constant Exacerbating factors: exertion and coughing Relieving factors: nothing Known history of: COPD Associated symptoms: Reports chest congestion, cough, myalgias and nausea; Deny abdominal pain, chest pain, diaphoresis, dizziness, extremity pain, fever(s), hemoptysis, lightheadedness, orthopnea, palpitations, paresthesias, polydipsia, polyuria, rash, sense of impending doom, syncope or vomiting Treatment prior to arrival: none Related Data: Home oxygen amount: none Review of Systems 2 Const: Denies: fever(s) or diaphoresis Card: Denies: chest pain, palpitations, lightheadedness, syncope or orthopnea Resp: Reports: chest congestion; Denies: hemoptysis GI: Reports: nausea; Denies: abdominal pain or vomiting : Denies: dysuria, urinary frequency or urinary urgency Musc: Denies: extremity pain Skin/Breast: Denies: rash Neuro: Denies: dizziness Endo: Denies: polyuria or polydipsia PFSH ED 2 PFSH: Medical History BPH (benign prostatic hyperplasia) PUD (peptic ulcer disease) Anticoagulation adequate with anticoagulant therapy Xarelto HTN (hypertension) Atrial fibrillation Diabetes 1.5, managed as type 2 Dyslipidemia CHF (congestive heart failure) Surgical History S/P appendectomy Family History Father Diabetes Social History Smoking and tobacco/nicotine status: former use of tobacco/nicotine Household members: spouse Marital status: service: No Current occupational status: retired Physical Exam 2 Const: GENERAL APPEARANCE: cooperative and comfortable O RIENTATION/CONSCIOUSNESS: Yes awake, Yes oriented to person, Yes oriented to place and Yes oriented to time HENMT: COMMON NORMALS: normocephalic, atraumatic and hearing grossly normal bilaterally HEAD & SCALP: normocephalic and atraumatic Resp: COMMON NORMALS: normal respiratory effort, No retractions, No use of accessory muscles and clear to auscultation bilaterally AUSCULTATION: clear to auscultation bilaterally Cardio: COMMON NORMALS: regular rate, regular rhythm and No murmurs present (Cardio) RATE: regular rate RHYTHM: regular rhythm GI: COMMON NORMALS: Soft to palpation and No hepatosplenomegaly present A USCULTATION: Yes normoactive bowel sounds PALPATION: Yes Soft to palpation, No Tenderness to palpation present (GI), No Guarding due to palpation present (GI) and Yes No hepatosplenomegaly present Extremity: COMMON NORMALS: normal to inspection, capillary refill normal, no clubbing, cyanosis or edema, no calf tenderness and no pedal edema Neuro: SENSORIUM/ORIENTATION: Yes oriented to person, Yes oriented to place and Yes oriented to time Skin: COMMON NORMALS: no rashes or lesions noted GENERAL SKIN EXAM: no rashes or lesions noted Course 2 Vital Signs: Vital signs: Vital Signs Temperature 97.7 F 02/22/24 16:19 Pulse Rate 66 02/22/24 16:19 Respiratory Rate 18 02/22/24 16:19 Blood Pressure 129/66 02/22/24 16:19 Pulse Oximetry 95 02/22/24 16:19 Oxygen Delivery Me thod Nasal Cannula 02/22/24 16:19 Oxygen Flow Rate 5 02/22/24 15:05 MDM - SOB/Dyspnea Medical Decision Making Exacerbation of COPD with acute hypoxia. Caused by influenza infection. Discussed with hospitalist will admit he did improve with oxygen and nebulizers. Patient given ceftriaxone and Zithromax because of his history of COPD. Medical Records I reviewed the patient's medical records. Lab Data I reviewed the patient's lab results. 02/22/24 09:43 02/22/24 09:43 Labs/Radiology: Radiology Impressions Chest X-Ray 02/22/24 09:32 IMPRESSION: No acute cardiopulmonary disease. Laboratory Results WBC 15.44 10^3/uL (3.29-11.43) H 02/22/24 09:43 RBC 4.19 10^6/uL (3.85-5.65) 02/22/24 09:43 Hgb 11.60 g/dL (11.27-16.99) 02/22/24 09:43 Hct 37.1 % (37-53) 02/22/24 09:43 MCV 88.5 fl (82-101) 02/22/24 09:43 MCH 27.7 pg (27-33) 02/22/24 09:43 MCHC 31.3 g/dL (30-55) 02/22/24 09:43 RDW 15.8 % (12.1-15.1) H 02/22/24 09:43 Plt Count 359 10^3/cmm (157-399) 02/22/24 09:43 MPV 9.1 fL (7.4-10.4) 02/22/24 09:43 Neut % (Auto) 73.1 % 02/22/24 09:43 Lymph % (Auto) 21.2 % 02/22/24 09:43 [place] % (Auto) 2.5 % 02/22/24 09:43 Eos % (Auto) 1.9 % 02/22/24 09:43 Baso % (Auto) 0.3 % 02/22/24 09:43 Neut # (Auto) 11.30 10^3/uL (1.8-7.7) H 02/22/24 09:43 Lymph # (Auto) 3.3 10^3/uL (0.8-4.8) 02/22/24 09:43 [place] # (Auto) 0.4 10^3/uL (0.2-0.9) 02/22/24 09:43 Eos # (Auto) 0.3 10^3/uL (0.0-0.8) 02/22/24 09:43 Baso # (Auto) 0.0 10^3/uL (0.0-0.1) 02/22/24 09:43 Nucleated RBC % (auto) 0 % 02/22/24 09:43 Nucleated RBCs # 0.0 /100WBC 02/22/24 09:43 Specimen Type Arterial 02/22/24 09:32 Sample Site Radial, right 02/22/24 09:32 ABG pH 7.48 (7.35-7.45) H 02/22/24 09:32 ABG pCO2 35.7 mmHg (35-45) 02/22/24 09:32 ABG pO2 61.3 mmHg (80.0-100.0) L 02/22/24 09:32 ABG HCO3 26.7 mmol/L (22-26) H 02/22/24 09:32 ABG O2 Saturation 93.6 02/22/24 09:32 ABG Base Excess 3.3 mmol/L (-2.0-2.0) H 02/22/24 09:32 [place] Test Pos 02/22/24 09:32 A-a O2 Gradient 5.4 mmHg (5-10) 02/22/24 09:32 Hematocrit 36.3 % (42-52) L 02/22/24 09:32 Hgb O2 Saturation 91.9 % (95-100) L 02/22/24 09:32 Carboxyhemoglobin 1.3 %THgb (0.4-20.1) 02/22/24 09:32 Methemoglobin 0.6 % (0.4-1.5) 02/22/24 09:32 Total Hemoglobin 11.9 g/dL (14-18) L 02/22/24 09:32 Sodium 137.0 mmol/L (131-143) 02/22/24 09:32 Potassium 3.8 mmol/L (3.5-5.0) 02/22/24 09:32 Glucose 277.0 mg/dL (70-115) H 02/22/24 09:32 Ionized Calcium 1.1 mmol/L (1.1-1.4) 02/22/24 09:32 O2 Delivery Device Nc 02/22/24 09:32 O2 Liters/Min 6.0 % 02/22/24 09:32 Loom Doffer ID [place] 02/22/24 09:32 Sodium 136 mmol/L (136-145) 02/22/24 09:43 Potassium 4.1 mmol/L (3.5-5.1) 02/22/24 09:43 Chloride 98 mmol/L (98-107) 02/22/24 09:43 Carbon Dioxide 27 mmol/L (22-29) 02/22/24 09:43 Anion Gap 15.1 (5-19) 02/22/24 09:43 BUN 27 mg/dL (8-23) H 02/22/24 09:43 Creatinine 1.5 mg/dL (0.7-1.2) H 02/22/24 09:43 GFR Calculation Not Reportable 02/22/24 09:43 Glucose 264 mg/dL (65-115) H 02/22/24 09:43 Calculated Osmolality 296 mOsm/kg (285-295) H 02/22/24 09:43 Calcium 8.1 mg/dL (8.5-10.5) L 02/22/24 09:43 Total Bilirubin 0.5 mg/dL (0.15-1.2) 02/22/24 09:43 AST 18 U/L (0-40) 02/22/24 09:43 ALT 27 U/L (0-41) 02/22/24 09:43 Alkaline Phosphatase 101 U/L (40-130) 02/22/24 09:43 Troponin T Baseline 29 ng/L (0-15) H 02/22/24 09:43 Troponin T 120 Minute 28.94 ng/L (0-15) H 02/22/24 11:38 Delta Troponin T -0.06 ABS# (0-10) L 02/22/24 11:38 NT-Pro-B Natriuret Pep 1008 pg/mL (0-450) H 02/22/24 09:43 Total Protein 6.8 g/dL (6.6-8.7) 02/22/24 09:43 Albumin 3.3 g/dL (3.5-5.2) L 02/22/24 09:43 Globulin 3.5 g/dL (1.3-4.6) 02/22/24 09:43 Procalcitonin 0.14 ng/mL (0-0.5) 02/22/24 09:43 Urine Color Light yellow (Yellow) 02/22/24 10:04 Urine Appearance Clear (CLEAR) 02/22/24 10:04 Urine pH 6 (5-7) 02/22/24 10:04 Ur Specific [place] 1.010 (1.005-1.030) 02/22/24 10:04 Urine Protein Neg (Negative) 02/22/24 10:04 Urine Glucose (UA) Trace (Normal) H 02/22/24 10:04 Urine Ketones Negative (Negative) 02/22/24 10:04 Urine Blood Neg (Negative) 02/22/24 10:04 Urine Nitrate Negative (Negative) 02/22/24 10:04 Urine Bilirubin Neg (Negative) 02/22/24 10:04 Urine Urobilinogen Norm mg/dL (Negative) 02/22/24 10:04 Ur Leukocyte Esterase Negative (Negative) 02/22/24 10:04 Coronavirus 229E (PCR) Not detected (NOT DETECT) 02/22/24 09:48 Influenza A (H1) PCR Not detected (NOT DETECT) 02/22/24 11:51 Influ A (H1/09) PCR Not detected (NOT DETECT) 02/22/24 11:51 Influenza A (H3) PCR Detected (NOT DETECT) A 02/22/24 11:51 Influenza Type A Ag Cancelled 02/22/24 09:48 Influenza Type A (PCR) Not detected (NOT DETECT) 02/22/24 11:51 Influenza Type B Ag Cancelled 02/22/24 09:48 Influenza Type B (PCR) Not detected (NOT DETECT) 02/22/24 11:51 SARS-CoV-2 (PCR) Not detected (NOT DETECT) 02/22/24 09:48 All radiology interpretation(s) finalized by discharge Discharge Plan Discharge Patient Disposition: Admitted As Inpatient Admit Provider: Hayden Rosado Clinical Impression: COPD with acute exacerbation, Acute hypoxemic respiratory failure, Influenza, CHF (congestive heart failure), Community acquired pneumonia Condition: Stable Coding Level of Care Code 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
[2024-02-22 09:54] LABS: Basophils % 0.3 %; Eosinophils # 0.3 10^3/uL (0.0-0.8); Eosinophils % 1.9 %; Hematocrit 37.1 % (37-53); Lymphocytes # 3.3 10^3/uL (0.8-4.8); Lymphocytes % 21.2 %; Mean Corpuscular HGB Conc 31.3 g/dL (30-55); Mean Corpuscular Hemoglobin 27.7 pg (27-33); Mean Corpuscular Volume 88.5 fl (82-101); Mean Platelet Volume 9.1 fL (7.4-10.4); Monocytes # 0.4 10^3/uL (0.2-0.9); Monocytes % 2.5 %; Neutrophils % 73.1 %; Nucleated Red Blood Cells % 0 %; Platelet Count 359 10^3/cmm (157-399); Red Blood Count 4.19 10^6/uL (3.85-5.65); Red Cell Distribution Width 15.8 % (12.1-15.1); White Blood Count 15.44 10^3/uL (3.29-11.43)
[2024-02-22 10:08] LABS: Add Urine Microscopic? NO; Charge for UA Resulting for Rev
[2024-02-22 10:12] LABS: Troponin(5th) Baseline 29 ng/L (0-15)
[2024-02-22 10:16] LABS: Alanine Aminotransferase 27 U/L (0-41); Albumin Level 3.3 g/dL (3.5-5.2); Alkaline Phosphatase 101 U/L (40-130); Anion Gap 15.1 (5-19); Aspartate Amino Transferase 18 U/L (0-40); Carbon Dioxide 27 mmol/L (22-29); Chloride 98 mmol/L (98-107); Globulin 3.5 g/dL (1.3-4.6); Glucose 264 mg/dL (65-115); Potassium 4.1 mmol/L (3.5-5.1); Sodium 136 mmol/L (136-145); Total Bilirubin 0.5 mg/dL (0.15-1.2); Total Protein 6.8 g/dL (6.6-8.7)
[2024-02-22 10:19] LABS: Bilirubin Urine Neg (Negative); Blood Urine Neg (Negative); Glucose Urine UA Trace (Normal); Ketones Urine Negative (Negative); Leukocyte Esterase Urine Negative (Negative); Nitrate Urine Negative (Negative); Protein Urine Neg (Negative); Urine Appearance Clear (CLEAR); Urine Color Light yellow (Yellow); Urobilinogen Urine Norm (Negative); pH Urine 6 (5-7)
[2024-02-22 10:30] LABS: Blood Urea Nitrogen 27 mg/dL (8-23); Calcium 8.1 mg/dL (8.5-10.5); Creatinine Clr Calc Pharmacy 40.2614; Osmolality Calculated 296 mOsm/kg (285-295)
[2024-02-22 10:36] LABS: NT Pro B Type Natriuretic Pept 1008 pg/mL (0-450); Procalcitonin 0.14 ng/mL (0-0.5)
[2024-02-22] MEDS: methylPREDNISolone sod succ 125 mg/2 mL INJ IVP (10:56)
[2024-02-22] MEDS: levofloxacin-dextrose 5 % 750 MG/150 ML PREMIX 100 MG IV (10:57)
[2024-02-22] MEDS: ipratropium-albuterol 3 mL Neb INHALATION ×3 (11:00→20:32)
--- NOTE | 2024-02-22 11:33 | ECG_ITS ---
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 Measurements Intervals [place] Rate: 86 P: 263 MI: 163 QRS: -42 QRSD: 133 T: 79 QT: 372 QTc: 446 Interpretive Statements SINUS RHYTHM LEFT AXIS DEVIATION [QRS AXIS < -30] INTRAVENTRICULAR CONDUCTION DELAY [130+ ms QRS DURATION] POSSIBLE ANTERIOR MYOCARDIAL INFARCTION , PROBABLY OLD [30 ms Q WAVE IN V3/V4, OR R < 0.2 mV IN V4] Compared to ECG 02/22/2024 09:38:50 Ectopic atrial rhythm now present Left-axis deviation now present Intraventricular conduction delay now present Myocardial infarct finding now present Left anterior fascicular block no longer present ST (T wave) deviation no longer present Electronically Signed On 02-22-2024 12:24:08 CDT by Tung Hutchinson M.D. [id number]
[2024-02-22 11:51] LABS: Adenovirus Not Detected (NOT DETECT); Chlamydia Pneumoniae Not Detected (NOT DETECT); Coronavirus 229E,HKU1,NL63,OC4 Not Detected (NOT DETECT); Human Metapneumovirus Not Detected (NOT DETECT); Human Rhinovirus/Enterovirus Not Detected (NOT DETECT); Influenza A Not Detected (NOT DETECT); Influenza A H1 Not Detected (NOT DETECT); Influenza A H1-2009 Not Detected (NOT DETECT); Influenza A H3 Detected (NOT DETECT); Influenza B Not Detected (NOT DETECT); Mycoplasma Pneumoniae Not Detected (NOT DETECT); Parainfluenza Virus Type 1 Not Detected (NOT DETECT); Parainfluenza Virus Type 2 Not Detected (NOT DETECT); Parainfluenza Virus Type 3 Not Detected (NOT DETECT); Parainfluenza Virus Type 4 Not Detected (NOT DETECT); Respiratory Syncytial Virus A Not Detected (NOT DETECT); Respiratory Syncytial Virus B Not Detected (NOT DETECT); SARS-COV-2 Not Detected (NOT DETECT)
[2024-02-22 11:55] LABS: Influenza A Not Detected (NOT DETECT); Influenza A H1 Not Detected (NOT DETECT); Influenza A H1-2009 Not Detected (NOT DETECT); Influenza A H3 Detected (NOT DETECT); Influenza B Not Detected (NOT DETECT); Results from GEN
[2024-02-22 12:06] LABS: Troponin 5 2HR 28.94 ng/L (0-15)
[2024-02-22 12:16] LABS: Troponin 5 2HR Delta -0.06 ABS# (0-10)
--- NOTE | 2024-02-22 13:17 | P.HP_ITS ---
Documented by User: Saidachandler JansenSANTIAGO STDPADMAJA 02/22/24 14:32 Providers/Chief Complaint 2 Admitting Physician: Hayden Rosado MD Primary Care Provider: Avtar Ngo DO Chief Complaint: low o2 History of Present Illness Sheng Bernstein is a 83 year old male with past medical history of BPH, PUD, hypertension, diabetes, CHF, A-fib on chronic anticoagulation presents to the emergency department with below listed complaints. Patient presents emergency department today for chief complaint of shortness of breath. Mr. Bernstein tells me that he was recently in the emergency department on 02/14/24 for shortness of breath. He had tested positive for influenza A at that time and was sent home with p.o. prednisone, a tapering dose, and Tamiflu. He stated that he was compliant in taking these prescribed medications. On Thursday morning 02/17/24 Mr. Bernstein stated that he felt a lot better and was able to move around and complete tasks around the house but later that same night he felt much worse. Reported a fever of 102.5 on Thursday night -this was his last known fever. He attempted to use his at home albuterol treatments to assist with his difficulty breathing also Tylenol, and ibuprofen intermittently for fever. He stated that these did not alleviate his symptoms. He came into the emergency department this morning because he had been monitoring his oxygen stat at home and noticed he was stating 76% this morning when he had trouble breathing. He denies chest pain, vomiting, and diarrhea. He reports nausea, chills, fever, dry heaving, weight loss of 5 pounds due to no appetite, and coughing up thick yellow/green sputum. Currently on 5 L nasal cannula, denies wearing oxygen at home. While in the emergency department Mr. Bernstein received Solu-Medrol 125 mg IV push, levofloxacin 750 mg IV, and DuoNeb breathing treatment. A CBC, CMP, COVID PCR, flu PCR, troponin, EKG were obtained. Patient to be transferred to the medical surgical floor for further care and treatment of influenza A. Review of Systems 2 Const: Reports: fever(s), chills, change in appetite, change in weight, fatigue and night sweats Eyes: Denies: change in vision, blurry vision, eye discomfort, eye redness or dry eyes ENMT: Denies: throat pain, odynophagia, mouth pain, ear discharge, change in hearing, nasal discharge or nasal congestion Card: Reports: dyspnea on exertion and orthopnea; Denies: chest pain, palpitations, irregular heart rhythm or syncope Resp: Reports: dyspnea, productive cough, wheezing and change in phlegm color GI: Reports: nausea; Denies: vomiting, diarrhea or constipation : Denies: difficulty urinating, dysuria, urinary frequency or urinary hesitancy Musc: Denies: neck pain, back pain, extremity pain or joint pain Skin/Breast: Reports: dry skin; Denies: rash, pruritus, erythema or sores Neuro: Denies: headache(s), frequent falls or dizziness Medications/Allergies Home Medications Medication Instructions Recorded Confirmed Last Taken Type losartan 50 mg tablet 50 mg PO DAILY@0700 02/08/20 02/22/24 02/22/24 History nitroglycerin 0.4 mg sublingual 0.4 mg sublingual Q5M PRN Chest 02/08/20 02/22/24 02/08/21 History tablet (Nitrostat) Pain terazosin 5 mg capsule 5 mg PO BEDTIME 02/08/20 02/22/24 02/21/24 History diphenhydramine 25 2 tab PO BEDTIME PRN Sleep 02/08/21 02/22/24 02/07/21 History mg-acetaminophen 500 mg tablet (Tylenol PM Extra Strength) potassium chloride 10 mEq 10 meq PO DAILY@0730 02/08/21 02/22/24 02/22/24 History capsule,extended release amlodipine 10 mg tablet 10 mg PO DAILY@0730 03/27/21 02/22/24 02/22/24 History furosemide 40 mg tablet 40 mg PO DAILY@0730 09/25/21 02/22/24 02/22/24 History levothyroxine 175 mcg tablet 175 mcg PO BEDTIME 03/28/22 02/22/24 02/21/24 History (Euthyrox) albuterol sulfate 90 mcg/actuation 1 puff inhalation QID PRN 10/17/23 02/22/24 02/22/24 Rx aerosol inhaler Shortness Of Breath 30 days #8.5 grams propafenone 150 mg tablet 150 mg PO TID #270 tabs 11/26/23 02/22/24 02/22/24 Rx ondansetron 8 mg disintegrating 8 mg PO .q6 PRN nausea and 02/14/24 02/22/24 Unknown Rx tablet vomiting #14 tabs prednisone 20 mg tablet 60 mg (3 x 20 mg) PO DAILY #20 tabs 02/14/24 02/22/24 02/22/24 Rx rivaroxaban 20 mg tablet (Xarelto) 20 mg PO QAM 02/22/24 02/22/24 02/22/24 History Allergies Allergy/AdvReac Type Severity Reaction Status Date / Time Penicillins Allergy Severe ADR/ALGY-Pa Verified 02/22/24 09:41 lpitations PFSH Acute 2 PFSH: Medical History BPH (benign prostatic hyperplasia) PUD (peptic ulcer disease) Anticoagulation adequate with anticoagulant therapy Xarelto HTN (hypertension) Atrial fibrillation Diabetes 1.5, managed as type 2 Dyslipidemia CHF (congestive heart failure) Surgical History S/P appendectomy Family History Father Diabetes Social History Smoking and tobacco/nicotine status: former use of tobacco/nicotine Household members: spouse Marital status: service: No Current occupational status: retired Vitals/I&O/Wt Last Vital Signs Temp 98.1 F 02/22/24 09:36 Pulse 86 02/22/24 11:25 Resp 18 02/22/24 11:25 BP 133/66 02/22/24 11:25 Pulse Ox 91 02/22/24 11:25 O2 Del Method Nasal Cannula 02/22/24 12:36 O2 Flow Rate 4 02/22/24 11:25 02/21/24 02/22/24 02/22/24 22:59 06:59 14:59 Intake Total 150 / 150 Balance 150 / 150 Weight last 48 hrs Weight 182 lb Weight 180 lb Physical Exam 2 Narrative: General exam is a white male, on 5L NC. No apparent distress. HEENT: Atraumatic normocephalic. Oropharynx clear. Neck is supple, no lymphadenopathy thyromegaly Cardiovascular currently regular, occasional premature beat, no murmur Lungs anterior bilateral lung sounds noted to be diminished. Reports productive intermittent, cough, yellow/green thick sputum. On 5 L nasal cannula, denies wearing oxygen at home. Abdomen is soft, non-tender with positive bowel sounds. exams deferred Extremities no edema, cap refill brisk, bruise noted on right foot- 1st and 2nd digit. Skin no rash Neuro no obvious focal deficits. Alert and oriented x 4. Data 02/22/24 09:43 02/22/24 09:43 Other Labs: WBC 15.4, Neut 11.3 pO2 61.3, HCO3 26.7 BUN 27, Spinner Hand 1.5 Glucose 264, currently taking steroids at home. Troponin baseline 29ng/L, troponin 120-minute 28.94 BNP 1008 Influenza A positive EKG impression 02/22/24: Sinus rhythm with a heart rate of 88 Chest x-ray impression 02/22/24: Per radiology acute cardiopulmonary disease. Per my read comparing to previous chest x-ray on 02/14/24 this x-ray indicates worsening of pneumonitis in the left lung base. A&P Assessment and plan (1) Acute hypoxemic respiratory failure: Supplement oxygen as needed, titrate down when appropriate Currently on 5 L nasal cannula, denies wearing oxygen at home. Incentive spirometer Continue IV steroids of Solu-Medrol 125 mg DuoNebs every 4 hours (2) COPD with acute exacerbation: DuoNebs every 4 hours Incentive spirometer IV steroids Solu-Medrol Oxygen as needed, titrate when appropriate (3) Community acquired pneumonia: Obtain a sputum sample Initiate IV Rocephin Initiate IV azithromycin Continue IV steroids of Solu-Medrol Incentive spirometer Supplement oxygen as needed Qualifiers: Laterality: right Lung location: lower lobe of lung Qualified Code(s): J18.9 - Pneumonia, unspecified organism (4) Influenza: Influenza A positive, completed Tamiflu regimen 02/11/24. Isolation precautions Supplement oxygen as needed IV steroids Solu-Medrol Encourage activity (5) Diabetes 1.5, managed as type 2: Controlled type 1.5 diabetic, hyperglycemic may be secondary to receiving steroids Sliding scale insulin Consistent carbohydrate diet ACHS (6) CHF (congestive heart failure): BNP elevated at 1008 Administer 20 mg IV push Lasix now Continue home dose Lasix 40 mg dly in a.m. Monitor I's and O's Monitor for urinary retention, continue terazosin 5mg PO for BPH Qualifiers: Heart failure chronicity: unspecified Heart failure type: unspecified Qualified Code(s): I50.9 - Heart failure, unspecified (7) Atrial fibrillation: History of atrial fibrillation, on chronic anticoagulants. Continue home dose rivaroxaban 20mg PO Continue home dose of Propafenone 150mg PO TID Mag level ordered for a.m. 1st pressman on web press Currently denies chest pain, palpitations. Qualifiers: Atrial fibrillation type: longstanding persistent Qualified Code(s): I 48.11 - Longstanding persistent atrial fibrillation Plan Hypothyroidism: Continue levothyroxine home dose of 125mcg PO dly, obtain TSH. Hypertension: Continue home dose of amlodipine 10 mg p.o. daily Dyslipidemia: Continue home dose of losartan 50 mg p.o. daily YASMEEN: BUN 27, creatinine 1.5. Limit renal toxic medications. CMP in AM. Rivaroxaban and SCDs will suffice as DVT prophylaxis Protonix for GI prophylaxis CODE STATUS: Full code Coding Level of Care Code 84543 Diagnoses Acute hypoxemic respiratory failure J96.01 COPD with acute exacerbation J44.1 Community acquired pneumonia J18.9 Laterality: right Lung location: lower lobe of lung Influenza 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 Time Spent (min) 65 Documented by User: Hayden Rosado MD 02/22/24 15:04 Providers/Chief Complaint 2 Chief Complaint: low o2 Medications/Allergies Home Medications Medication Instructions Recorded Confirmed Last Taken Type losartan 50 mg tablet 50 mg PO DAILY@0700 02/08/20 02/22/24 02/22/24 History nitroglycerin 0.4 mg sublingual 0.4 mg sublingual Q5M PRN Chest 02/08/20 02/22/24 02/08/21 History tablet (Nitrostat) Pain terazosin 5 mg capsule 5 mg PO BEDTIME 02/08/20 02/22/24 02/21/24 History diphenhydramine 25 2 tab PO BEDTIME PRN Sleep 02/08/21 02/22/24 02/07/21 History mg-acetaminophen 500 mg tablet (Tylenol PM Extra Strength) potassium chloride 10 mEq 10 meq PO DAILY@72902/08/21 02/22/24 02/22/24 History capsule,extended release amlodipine 10 mg tablet 10 mg PO DAILY@72903/27/21 02/22/24 02/22/24 History furosemide 40 mg tablet 40 mg PO DAILY@72909/25/21 02/22/24 02/22/24 History levothyroxine 175 mcg tablet 175 mcg PO BEDTIME 03/28/22 02/22/24 02/21/24 History (Euthyrox) albuterol sulfate 90 mcg/actuation 1 puff inhalation QID PRN 10/17/23 02/22/24 02/22/24 Rx aerosol inhaler Shortness Of Breath 30 days #8.5 grams propafenone 150 mg tablet 150 mg PO TID #270 tabs 11/26/23 02/22/24 02/22/24 Rx ondansetron 8 mg disintegrating 8 mg PO .q6 PRN nausea and 02/14/24 02/22/24 Unknown Rx tablet vomiting #14 tabs prednisone 20 mg tablet 60 mg (3 x 20 mg) PO DAILY #20 tabs 02/14/24 02/22/24 02/22/24 Rx rivaroxaban 20 mg tablet (Xarelto) 20 mg PO QAM 02/22/24 02/22/24 02/22/24 History Allergies Allergy/AdvReac Type Severity Reaction Status Date / Time Penicillins Allergy Severe ADR/ALGY-Pa Verified 02/22/24 09:41 lpitations PFSH Acute 2 PFSH: Medical History BPH (benign prostatic hyperplasia) PUD (peptic ulcer disease) Anticoagulation adequate with anticoagulant therapy Xarelto HTN (hypertension) Atrial fibrillation Diabetes 1.5, managed as type 2 Dyslipidemia CHF (congestive heart failure) Surgical History S/P appendectomy Family History Father Diabetes Social History Smoking and tobacco/nicotine status: former use of tobacco/nicotine Household members: spouse Marital status: service: No Current occupational status: retired Data 02/22/24 09:43 02/22/24 09:43 A&P Assessment and plan (1) Acute hypoxemic respiratory failure: Supplement oxygen as needed, titrate down when appropriate Currently on 5 L nasal cannula, denies wearing oxygen at home. Incentive spirometer Continue IV steroids of Solu-Medrol 60 mg IV every 12 hours DuoNebs every 4 hours Work of breathing already appears to be somewhat improved (2) COPD with acute exacerbation: (3) Community acquired pneumonia: Qualifiers: Laterality: right Lung location: lower lobe of lung Qualified Code(s): J18.9 - Pneumonia, unspecified organism (4) Influenza: (5) Diabetes 1.5, managed as type 2: (6) CHF (congestive heart failure): BNP elevated at 1008 Administer 20 mg IV push Lasix now Continue home dose Lasix 40 mg dly in a.m. Monitor I's and O's Monitor for urinary retention, continue terazosin 5mg PO for BPH CBC, CMP tomorrow Qualifiers: Heart failure chronicity: unspecified Heart failure type: unspecified Qualified Code(s): I50.9 - Heart failure, unspecified (7) Atrial fibrillation: Qualifiers: Atrial fibrillation type: longstanding persistent Qualified Code(s): I 48.11 - Longstanding persistent atrial fibrillation Attestations 2 Medical Necessity Statement*: Will need greater than 2 midnight stay for evaluation and treatment of COPD exacerbation, influenza, hypoxia requiring a significant amount of oxygen in this patient with respiratory failure Diagnoses Acute hypoxemic respiratory failure J96.01 COPD with acute exacerbation J44.1 Community acquired pneumonia J18.9 Laterality: right Lung location: lower lobe of lung Influenza 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 Time Spent (min) 65
[2024-02-22] MEDS: propafenone 150 mg Tablet PO ×2 (14:16→21:57)
[2024-02-22] MEDS: FUROsemide 10 mg/mL SDV 2mL 20 MG IVP (14:16)
[2024-02-22] MEDS: azithromycin 500 MG in sodium chloride 0.9% 250 ML 250 MG IV (14:16)
[2024-02-22] MEDS: cefTRIAXone 1,000 MG in sodium chloride 0.9% (plus) 50 ML 100 MG IV (15:32)
--- NOTE | 2024-02-22 15:38 | ECG_ITS ---
[facility] Test Date: 2024-02-22 Pat Name: Sheng Bernstein Department: Room: 254 Gender: Male Documentation Consultant: : 1940 Requested By: Teja Avalos Order Number: [id number] Reva MD: Tung Hutchinson M.D. Measurements Intervals [place] Rate: 67 P: 60 MS: 237 QRS: -38 QRSD: 136 T: 0 QT: 431 QTc: 458 Interpretive Statements SINUS RHYTHM WITH FIRST DEGREE AV BLOCK LEFT AXIS DEVIATION [QRS AXIS < -30] INTRAVENTRICULAR CONDUCTION DELAY [130+ ms QRS DURATION] POSSIBLE ANTERIOR MYOCARDIAL INFARCTION , PROBABLY OLD [30 ms Q WAVE IN V3/V4, OR R < 0.2 mV IN V4] Compared to ECG 02/22/2024 11:40:24 First degree AV block now present Myocardial infarct finding still present Electronically Signed On 02-22-2024 21:53:21 CDT by Tung Hutchinson M.D. [id number]
[2024-02-22 16:58] LABS: Troponin 5 6HR 25.14 ng/L (0-15)
[2024-02-22 17:02] LABS: Troponin 5 6HR Delta -3.86 ng/L (0-12)
[2024-02-22] MEDS: insulin lispro 100 unit/1 mL SUBCUT ×2 (17:02→21:58)
[2024-02-22] MEDS: methylPREDNISolone sod succ 125 mg/2 mL INJ 60 MG IVP (17:02)
[2024-02-22 17:08] LABS: Glucose Point of Care 386 mg/dL (70-110)
[2024-02-22 20:31] LABS: Glucose Point of Care 379 mg/dL (70-110)
[2024-02-22] MEDS: budesonide 0.5 mg/2 mL Neb INHALATION (20:32)
[2024-02-22] MEDS: terazosin 5 mg Capsule PO (21:57)
[2024-02-22] MEDS: levothyroxine 175 mcg Tablet PO (21:57)
[2024-02-23] VITALS (18 sets, daily range): BP systolic 115–145; BP diastolic 60–76; PULSE 61–79; RESP 16–20; TEMP 36.1–36.3; O2SAT 94–98
[2024-02-23] MEDS: ipratropium-albuterol 3 mL Neb INHALATION ×7 (00:08→23:18)
[2024-02-23 05:52] LABS: Basophils % 0.1 %; Hematocrit 34.8 % (37-53); Lymphocytes % 18.6 %; Mean Corpuscular HGB Conc 32.2 g/dL (30-55); Mean Corpuscular Hemoglobin 27.7 pg (27-33); Mean Corpuscular Volume 85.9 fl (82-101); Mean Platelet Volume 9.6 fL (7.4-10.4); Monocytes # 0.1 10^3/uL (0.2-0.9); Neutrophils # 8.52 10^3/uL (1.8-7.7); Neutrophils % 79.4 %; Nucleated Red Blood Cells % 0 %; Platelet Count 373 10^3/cmm (157-399); Red Blood Count 4.05 10^6/uL (3.85-5.65); Red Cell Distribution Width 15.6 % (12.1-15.1); White Blood Count 10.74 10^3/uL (3.29-11.43)
[2024-02-23 06:16] LABS: Alanine Aminotransferase 24 U/L (0-41); Albumin Level 3.2 g/dL (3.5-5.2); Alkaline Phosphatase 96 U/L (40-130); Anion Gap 17.4 (5-19); Aspartate Amino Transferase 11 U/L (0-40); Blood Urea Nitrogen 35 mg/dL (8-23); Calcium 8.5 mg/dL (8.5-10.5); Carbon Dioxide 25 mmol/L (22-29); Chloride 97 mmol/L (98-107); Glucose 238 mg/dL (65-115); Magnesium 2.2 mg/dL (1.7-2.3); Osmolality Calculated 296 mOsm/kg (285-295); Potassium 4.4 mmol/L (3.5-5.1); Sodium 135 mmol/L (136-145); Total Bilirubin 0.3 mg/dL (0.15-1.2); Total Protein 7.2 g/dL (6.6-8.7)
[2024-02-23 06:17] LABS: Glucose Point of Care 250 mg/dL (70-110)
[2024-02-23] MEDS: losartan 50 mg Tablet PO (06:31)
[2024-02-23] MEDS: FUROsemide 40 mg Tablet PO (06:31)
[2024-02-23] MEDS: rivaroxaban 10 mg Tablet 20 MG PO (06:31)
[2024-02-23] MEDS: amlodipine 10 mg Tablet PO (06:31)
[2024-02-23] MEDS: methylPREDNISolone sod succ 125 mg/2 mL INJ 60 MG IVP (06:32)
[2024-02-23] MEDS: budesonide 0.5 mg/2 mL Neb INHALATION ×2 (07:38→20:15)
[2024-02-23] MEDS: propafenone 150 mg Tablet PO ×3 (07:42→21:52)
[2024-02-23] MEDS: insulin lispro 100 unit/1 mL SUBCUT ×4 (07:42→21:52)
[2024-02-23] MEDS: pantoprazole DR 40 mg Tablet PO (07:42)
--- NOTE | 2024-02-23 08:35 | P.PN_ITS ---
Documented by User: SANTIAGO Macias STDPADMAJA 02/23/24 09:27 Subjective 2 Subjective: Patient resting in bed on 4L NC, reports he is feeling better today, but still having some shortness of breath. Mr. Bernstein states he is coughing much less today and denies having nausea this morning. Patient plans to get up and more around today. Denies chest pain, palpitations. Medications: Reviewed: Yes Vitals/I&O/Wt Last Vital Signs Temp 97.0 F L 02/23/24 08:00 Pulse 79 02/23/24 08:00 Resp 20 H 02/23/24 08:00 BP 137/76 02/23/24 08:00 Pulse Ox 95 02/23/24 08:00 O2 Del Method Nasal Cannula 02/23/24 08:00 O2 Flow Rate 4 02/23/24 07:45 02/22/24 02/23/24 02/23/24 22:59 06:59 14:59 Intake Total 1020 / 1170 240 / 1410 Balance 1020 / 1170 240 / 1410 Weight last 48 hrs Weight 186 lb Weight 182 lb Weight 180 lb Physical Exam 2 Narrative: General exam is a white male, on 4L NC. No apparent distress. HEENT: Atraumatic normocephalic. Oropharynx clear. Neck is supple, no lymphadenopathy thyromegaly Cardiovascular currently regular, occasional premature beat, no murmur Lungs anterior bilateral lung sounds noted to be clear. Reports productive intermittent, cough, yellow/green thick sputum. On 4L nasal cannula, denies wearing oxygen at home. Abdomen is soft, non-tender with positive bowel sounds. exams deferred Extremities no edema, cap refill brisk, bruise noted on right foot- 1st and 2nd digit. Skin no rash Neuro no obvious focal deficits. Alert and oriented x 4. Data 02/23/24 05:15 02/23/24 05:15 Micro: Microbiology 02/22/24 15:40 Gram Stain - Final Sputum - Expectorated Sputum A&P Assessment and plan (1) Acute hypoxemic respiratory failure: Supplement oxygen as needed, titrate down when appropriate Currently on 4 L nasal cannula, denies wearing oxygen at home. Incentive spirometer Switch IV steroids to 40mg PO Prednisone dly starting tomorrow. DuoNebs every 4 hours (2) COPD with acute exacerbation: DuoNebs every 4 hours Incentive spirometer Prednisone 40mg PO steroids Oxygen as needed, titrate when appropriate. (3) Community acquired pneumonia: Sputum sample pending. Continue IV Rocephin Continue IV azithromycin Continue steriods Prednisone 40mg Incentive spirometer Supplement oxygen as needed Qualifiers: Laterality: right Lung location: lower lobe of lung Qualified Code(s): J18.9 - Pneumonia, unspecified organism (4) Influenza: Influenza A positive, completed Tamiflu regimen 02/11/24. Isolation precautions Supplement oxygen as needed Conitnue Prednisone 40mg Encourage activity (5) Diabetes 1.5, managed as type 2: Controlled type 1.5 diabetic, hyperglycemic may be secondary to receiving steroids Sliding scale insulin Consistent carbohydrate diet ACHS (6) CHF (congestive heart failure): BNP elevated at 1008 on 02/22/24 Continue home dose Lasix 40 mg dly in a.m. Monitor I's and O's Monitor for urinary retention, continue terazosin 5mg PO for BPH CBC, CMP tomorrow Qualifiers: Heart failure chronicity: unspecified Heart failure type: unspecified Qualified Code(s): I50.9 - Heart failure, unspecified (7) Atrial fibrillation: History of atrial fibrillation, on chronic anticoagulants. Continue home dose rivaroxaban 20mg PO Continue home dose of Propafenone 150mg PO TID Mag level 2.2 Cardiac monitoring Denies chest pain, palpitations. Qualifiers: Atrial fibrillation type: longstanding persistent Qualified Code(s): I 48.11 - Longstanding persistent atrial fibrillation Plan Hypothyroidism: Continue levothyroxine home dose of 125mcg PO dly, obtain TSH*. Hypertension: Continue home dose of amlodipine 10 mg p.o. daily Dyslipidemia: Continue home dose of losartan 50 mg p.o. daily YASMEEN: BUN 35, creatinine 1.5. Limit renal toxic medications. CMP in AM. Rivaroxaban and SCDs will suffice as DVT prophylaxis Protonix for GI prophylaxis CODE STATUS: Full code Coding Level of Care Code 65804 Diagnoses Acute hypoxemic respiratory failure J96.01 COPD with acute exacerbation J44.1 Community acquired pneumonia J18.9 Laterality: right Lung location: lower lobe of lung Influenza 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 Time Spent (min) 24 Documented by User: Hayden Rosado MD 02/23/24 09:31 Physical Exam 2 Narrative: General exam is a white male, on 4L NC. No apparent distress. Neck is supple, no lymphadenopathy thyromegaly Cardiovascular currently regular, occasional premature beat, no murmur Lungs anterior bilateral lung sounds noted to be clear. Reports productive intermittent, cough, yellow/green thick sputum. On 4L nasal cannula, denies wearing oxygen at home. Abdomen is soft, non-tender with positive bowel sounds. Extremities no edema, cap refill brisk, bruise noted on right foot- 1st and 2nd digit. Data 02/23/24 05:15 02/23/24 05:15 A&P Assessment and plan (1) Acute hypoxemic respiratory failure: Supplement oxygen as needed, titrate down when appropriate Currently on 4 L nasal cannula, denies wearing oxygen at home. Incentive spirometer Switch IV steroids to 40mg PO Prednisone starting tomorrow. DuoNebs every 4 hours (2) COPD with acute exacerbation: (3) Community acquired pneumonia: Qualifiers: Laterality: right Lung location: lower lobe of lung Qualified Code(s): J18.9 - Pneumonia, unspecified organism (4) Influenza: (5) Diabetes 1.5, managed as type 2: (6) CHF (congestive heart failure): Qualifiers: Heart failure chronicity: unspecified Heart failure type: unspecified Qualified Code(s): I50.9 - Heart failure, unspecified (7) Atrial fibrillation: Qualifiers: Atrial fibrillation type: longstanding persistent Qualified Code(s): I 48.11 - Longstanding persistent atrial fibrillation Plan Hypothyroidism: Continue levothyroxine home dose of 125mcg PO dly, obtain TSH. Hypertension: Continue home dose of amlodipine 10 mg p.o. daily Dyslipidemia: Continue home dose of losartan 50 mg p.o. daily YASMEEN: BUN 35, creatinine 1.5. Limit renal toxic medications. CMP in AM. Rivaroxaban and SCDs will suffice as DVT prophylaxis Protonix for GI prophylaxis CODE STATUS: Full code Attestations 2 Medical Necessity Statement*: Needs continued hospital stay for influenza with significant hypoxia with need for frequent breathing treatments and steroids for COPD exacerbation Diagnoses Acute hypoxemic respiratory failure J96.01 COPD with acute exacerbation J44.1 Community acquired pneumonia J18.9 Laterality: right Lung location: lower lobe of lung Influenza 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 Time Spent (min) 24
--- NOTE | 2024-02-23 10:03 | PC.CHAP ---
Pastoral Care Encounter/Spiritual Assessment Type of Contact [] Declined resident assistant cna visit [] Patient/Family/Request visit [] Outpatient visit [] Follow-up visit [] Physician referral [] Code/Alert [] Routine visit [] Staff referral [] Actively dying [] Patient sleeping [] Family support [] [] Out of room [] Palliative care [] [] Receiving care in room [] Pre-surgical visit [] Trauma [] Long length of stay [] ICU visit [x] Other:Contact precautions. No visit. Relational/Emotional Strength [] Patient feels connected with others/family/visitors/staff [] Distress [] Loneliness/isolation [] Abandonment Spirituality of Patient [] Person of Ana M [] Attends Methodist of their Ana M [] Believes in Prayer [] Reads Bible or Sabianist materials [] There are Spiritual issues to be addressed Area Mechanic Interventions [] Prayer [] Active listening [] Non-anxious presence [] Spiritual/emotional support [] Crisis/trauma care [] Spiritual counseling [] Bereavement support [] Provided bereavement packet [] Provided Bible/devotional materials [] Provided toy/stuffed animal, coloring book to patient or family member [] Provided Communion [] Anointing/Sandwich [] Salvation [] Completed spiritual assessment [] Other: Impact on Illness or Injury [] Angry [] Fearful [] Anxious [] Often cries [] Exhaustion [] Unable to work [] Unable to attend denominational [] Unable to walk/stand [] Unable to read [] Unable to drive [] Unable to eat/drink [] Unable to sleep [] Unable to be with family [] Patient intubated [] Other: Summary Time spent with patient
[2024-02-23 10:41] LABS: Thyroid Stimulating Hormone 0.32 uIU/mL (0.27-4.20)
[2024-02-23] MEDS: predniSONE 20 mg Tablet 40 MG PO (10:55)
[2024-02-23 11:18] LABS: Glucose Point of Care 373 mg/dL (70-110)
[2024-02-23] MEDS: azithromycin 500 MG in sodium chloride 0.9% 250 ML 250 MG IV (14:23)
[2024-02-23] MEDS: cefTRIAXone 1,000 MG in sodium chloride 0.9% (plus) 50 ML 100 MG IV (14:23)
[2024-02-23 16:28] LABS: Glucose Point of Care 324 mg/dL (70-110)
[2024-02-23 21:10] LABS: Glucose Point of Care 288 mg/dL (70-110)
[2024-02-23] MEDS: levothyroxine 175 mcg Tablet PO (21:52)
[2024-02-23] MEDS: terazosin 5 mg Capsule PO (21:52)
[2024-02-24] VITALS (19 sets, daily range): BP systolic 117–143; BP diastolic 70–77; PULSE 60–81; RESP 16–18; TEMP 36.3–36.8; O2SAT 87–98; BMI 28.3
[2024-02-24] MEDS: ipratropium-albuterol 3 mL Neb INHALATION ×6 (03:37→23:59)
[2024-02-24 05:23] LABS: Basophils % 0.2 %; Hematocrit 34.5 % (37-53); Lymphocytes % 15.5 %; Mean Corpuscular HGB Conc 32.2 g/dL (30-55); Mean Corpuscular Volume 86.9 fl (82-101); Mean Platelet Volume 9.4 fL (7.4-10.4); Monocytes # 0.2 10^3/uL (0.2-0.9); Monocytes % 1.8 %; Neutrophils # 10.75 10^3/uL (1.8-7.7); Neutrophils % 81.7 %; Nucleated Red Blood Cells % 0 %; Platelet Count 425 10^3/cmm (157-399); Red Blood Count 3.97 10^6/uL (3.85-5.65); Red Cell Distribution Width 15.9 % (12.1-15.1); White Blood Count 13.13 10^3/uL (3.29-11.43)
[2024-02-24 05:43] LABS: Anion Gap 16.2 (5-19); Blood Urea Nitrogen 47 mg/dL (8-23); Calcium 8.2 mg/dL (8.5-10.5); Carbon Dioxide 25 mmol/L (22-29); Chloride 100 mmol/L (98-107); Creatinine Clr Calc Pharmacy 47.1415; Glucose 212 mg/dL (65-115); Osmolality Calculated 303 mOsm/kg (285-295); Potassium 4.2 mmol/L (3.5-5.1); Sodium 137 mmol/L (136-145)
[2024-02-24] MEDS: FUROsemide 40 mg Tablet PO (06:33)
[2024-02-24] MEDS: losartan 50 mg Tablet PO (06:33)
[2024-02-24] MEDS: rivaroxaban 10 mg Tablet 20 MG PO (06:33)
[2024-02-24] MEDS: amlodipine 10 mg Tablet PO (06:33)
[2024-02-24 06:34] LABS: Glucose Point of Care 222 mg/dL (70-110)
[2024-02-24] MEDS: insulin lispro 100 unit/1 mL SUBCUT ×4 (07:44→20:36)
[2024-02-24] MEDS: predniSONE 20 mg Tablet 40 MG PO (07:45)
[2024-02-24] MEDS: pantoprazole DR 40 mg Tablet PO (07:45)
[2024-02-24] MEDS: propafenone 150 mg Tablet PO ×3 (07:48→20:36)
[2024-02-24] MEDS: budesonide 0.5 mg/2 mL Neb INHALATION ×2 (08:20→20:34)
--- NOTE | 2024-02-24 09:38 | P.PN_ITS ---
Documented by User: SANTIAGO Macias STDNT 02/24/24 09:51 Subjective 2 Subjective: Patient sitting up in chair on 3 L nasal cannula, noted to be at bedside. He states that he is feeling better today despite still needing oxygen, walked around the room a little bit this morning and sat up to eat breakfast. He plans on walking around more this morning, still feeling weak and wants to gain his strength back. Medications: Reviewed: Yes Vitals/I&O/Wt Last Vital Signs Temp 98.3 F 02/24/24 07:55 Pulse 77 02/24/24 08:23 Resp 16 02/24/24 08:00 BP 138/76 02/24/24 07:55 Pulse Ox 96 02/24/24 08:00 O2 Del Method Nasal Cannula 02/24/24 08:00 O2 Flow Rate 3 02/24/24 08:00 02/23/24 02/24/24 02/24/24 22:59 06:59 14:59 Intake Total 1080 / 2040 240 / 240 Balance 1080 / 2040 240 / 240 Weight last 48 hrs Weight 186 lb 4.8 oz Weight 186 lb Weight 182 lb Physical Exam 2 Narrative: General exam is a white male, on 3L NC. No apparent distress. Neck is supple, no lymphadenopathy thyromegaly Cardiovascular currently regular, occasional premature beat, no murmur Lungs anterior bilateral lung sounds noted to be diminished bilateral, with faint wheezes. Reports productive intermittent cough, yellow/green thick sputum. On 3L nasal cannula, denies wearing oxygen at home. Abdomen is soft, non-tender with positive bowel sounds. Extremities bruise noted on right foot- 1st and 2nd digit. Data 02/24/24 04:30 02/24/24 04:30 Micro: Microbiology 02/22/24 15:40 Gram Stain - Final Sputum - Expectorated Sputum Sputum Culture - Preliminary A&P Assessment and plan (1) Acute hypoxemic respiratory failure: Supplement oxygen as needed, titrate down when appropriate Currently on 3L nasal cannula, denies wearing oxygen at home. Continue 40mg PO Prednisone. DuoNebs every 4 hours (2) COPD with acute exacerbation: DuoNebs every 4 hours Encourage incentive spirometer Continue prednisone 40mg PO Oxygen as needed, titrate when appropriate. (3) Community acquired pneumonia: Sputum sample pending. Continue IV Rocephin Continue IV azithromycin Continue steriods Prednisone 40mg Encourage incentive spirometer Supplement oxygen as needed Qualifiers: Laterality: right Lung location: lower lobe of lung Qualified Code(s): J18.9 - Pneumonia, unspecified organism (4) Influenza: Influenza A positive, completed Tamiflu regimen 02/11/24. Isolation precautions Supplement oxygen as needed Conitnue Prednisone 40mg Encourage activity (5) Diabetes 1.5, managed as type 2: Controlled type 1.5 diabetic, hyperglycemic may be secondary to receiving steroids Sliding scale insulin Consistent carbohydrate diet ACHS (6) CHF (congestive heart failure): BNP elevated at 1008 on 02/22/24 Continue home dose Lasix 40 mg dly in a.m. Monitor I's and O's Monitor for urinary retention, continue terazosin 5mg PO for BPH CBC, CMP tomorrow Qualifiers: Heart failure chronicity: unspecified Heart failure type: unspecified Qualified Code(s): I50.9 - Heart failure, unspecified (7) Atrial fibrillation: History of atrial fibrillation, on chronic anticoagulants. Continue home dose rivaroxaban 20mg PO Continue home dose of Propafenone 150mg PO TID Cardiac monitoring Denies chest pain, palpitations. Qualifiers: Atrial fibrillation type: longstanding persistent Qualified Code(s): I 48.11 - Longstanding persistent atrial fibrillation Plan Hypothyroidism: Continue levothyroxine home dose of 125mcg PO dly, obtain TSH. Hypertension: Continue home dose of amlodipine 10 mg p.o. daily Dyslipidemia: Continue home dose of losartan 50 mg p.o. daily YASMEEN: BUN 47, creatinine 1.3. Limit renal toxic medications. CMP in AM. Rivaroxaban and SCDs will suffice as DVT prophylaxis Protonix for GI prophylaxis CODE STATUS: Full code Coding Level of Care Code 07213 Diagnoses Acute hypoxemic respiratory failure J96.01 COPD with acute exacerbation J44.1 Community acquired pneumonia J18.9 Laterality: right Lung location: lower lobe of lung Influenza 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 Time Spent (min) 21 Documented by User: Hayden Rosado MD 02/24/24 10:15 Data 02/24/24 04:30 02/24/24 04:30 A&P Assessment and plan (1) Acute hypoxemic respiratory failure: Supplement oxygen as needed, titrate down when appropriate Currently on 3L nasal cannula, denies wearing oxygen at home. Continue 40mg PO Prednisone. DuoNebs every 4 hours Budesonide twice daily (2) COPD with acute exacerbation: DuoNebs every 4 hours Budesonide twice daily Encourage incentive spirometer Continue prednisone 40mg PO Oxygen as needed, titrate when appropriate. (3) Community acquired pneumonia: Qualifiers: Laterality: right Lung location: lower lobe of lung Qualified Code(s): J18.9 - Pneumonia, unspecified organism (4) Influenza: (5) Diabetes 1.5, managed as type 2: (6) CHF (congestive heart failure): BNP elevated at 1008 on 02/22/24 Continue home dose Lasix 40 mg dly in a.m. Monitor I's and O's Monitor for urinary retention, continue terazosin 5mg PO for BPH Qualifiers: Heart failure chronicity: unspecified Heart failure type: unspecified Qualified Code(s): I50.9 - Heart failure, unspecified (7) Atrial fibrillation: Qualifiers: Atrial fibrillation type: longstanding persistent Qualified Code(s): I 48.11 - Longstanding persistent atrial fibrillation Attestations 2 Medical Necessity Statement*: Needs continued hospitalization for frequent pulmonary toilet, IV antibiotics secondary to pneumonia and COPD exacerbation. Diagnoses Acute hypoxemic respiratory failure J96.01 COPD with acute exacerbation J44.1 Community acquired pneumonia J18.9 Laterality: right Lung location: lower lobe of lung Influenza 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 Time Spent (min) 21
[2024-02-24 10:46] LABS: Glucose Point of Care 223 mg/dL (70-110)
[2024-02-24] MEDS: azithromycin 500 MG in sodium chloride 0.9% 250 ML 250 MG IV (13:06)
[2024-02-24] MEDS: cefTRIAXone 1,000 MG in sodium chloride 0.9% (plus) 50 ML 100 MG IV (14:28)
[2024-02-24 16:46] LABS: Glucose Point of Care 329 mg/dL (70-110)
--- NOTE | 2024-02-24 18:39 | PC.NURSE ---
SHIFT SUMMARY Patient has done well today. Remained on 3L of O2. Good PO intake and output. Patient has ambulated around the room and been up in the chair multiple times. at bedside.
[2024-02-24 20:29] LABS: Glucose Point of Care 409 mg/dL (70-110)
[2024-02-24] MEDS: terazosin 5 mg Capsule PO (20:36)
[2024-02-24] MEDS: levothyroxine 175 mcg Tablet PO (20:36)
[2024-02-25] VITALS: PULSE 69; RESP 15; O2SAT 98
[2024-02-25] MEDS: ipratropium-albuterol 3 mL Neb INHALATION ×2 (03:15→09:15)
[2024-02-25 03:16] VITALS: PULSE 60; RESP 16; O2SAT 97
[2024-02-25 03:19] VITALS: PULSE 56
[2024-02-25 04:00] VITALS: BP 138/77; PULSE 57; RESP 18; TEMP 36.5; O2SAT 98
[2024-02-25] MEDS: amlodipine 10 mg Tablet PO (05:53)
[2024-02-25] MEDS: FUROsemide 40 mg Tablet PO (05:53)
[2024-02-25] MEDS: rivaroxaban 10 mg Tablet 20 MG PO (05:53)
[2024-02-25] MEDS: losartan 50 mg Tablet PO (05:53)
[2024-02-25 06:25] LABS: Glucose Point of Care 140 mg/dL (70-110)
[2024-02-25 07:51] VITALS: BP 141/46; PULSE 57; RESP 15; TEMP 36.8; O2SAT 97
[2024-02-25 09:15] VITALS: PULSE 70; RESP 20; O2SAT 92
[2024-02-25] MEDS: budesonide 0.5 mg/2 mL Neb INHALATION (09:15)
--- NOTE | 2024-02-25 09:36 | P.DS_ITS ---
Documented by User: SANTIAGO Macias STDPADMAJA 02/25/24 10:01 Discharge Providers Date of Admission: 02/22/24 11:57 Date of Discharge: February 25, 2024 Attending Provider at Admission: Hayden Rosado MD Attending Provider at Discharge: Hayden Rosado MD Primary Care Provider: Avtar Ngo DO Diagnoses at Discharge Discharge Diagnosis (1) Acute hypoxemic respiratory failure: Status: Acute (2) COPD with acute exacerbation: Status: Acute (3) Community acquired pneumonia: Status: Acute Qualifiers: Laterality: right Lung location: lower lobe of lung Qualified Code(s): J18.9 - Pneumonia, unspecified organism (4) Influenza: Status: Acute (5) Diabetes 1.5, managed as type 2: Status: Acute (6) CHF (congestive heart failure): Status: Acute Qualifiers: Heart failure chronicity: unspecified Heart failure type: unspecified Qualified Code(s): I50.9 - Heart failure, unspecified (7) Atrial fibrillation: Status: Acute Qualifiers: Atrial fibrillation type: longstanding persistent Qualified Code(s): I48.11 - Longstanding persistent atrial fibrillation Other Information Additional DC diagnoses/information: Sheng Bernstein is a 83 year old male with past medical history of BPH, PUD, hypertension, diabetes, CHF, A-fib on chronic anticoagulation presents to the emergency department on 02/22/2024 for chief complaint of shortness of breath. At time of his admission he reported that he was recently in the emergency department on 02/14/24 for the same chief complaint of shortness of breath. He had tested positive for influenza A at that time and was sent home with p.o. prednisone, a tapering dose, and Tamiflu. Reported a fever of 102.5 on Thursday night 02/17/24. He attempted to use his at home albuterol treatments to assist with his difficulty breathing also Tylenol, and ibuprofen intermittently for fever. He stated that these did not alleviate his symptoms. He came into the Emergency Department 02/22/24 because Mr. Bernstein had been monitoring his oxygen stat at home and noticed he was stating 76% this morning when he had trouble breathing. He reported nausea, chills, fever, dry heaving, weight loss of 5 pounds due to no appetite, and coughing up thick yellow/green sputum. He was requiring on 5 L nasal cannula on admission, denies wearing oxygen at home although has required this in the past. Patient was admitted to the medical surgical floor for treatment of influenza A, COPD with acute exacerbation, and possible community acquired pneumonia. While Mr. Bernstein was in the hospital we administered IV abx of Rocephin and azithromycin for possible community acquired pneumonia, steroids, douneb Q4HR, and supplemental oxygen. Mr. Bernstein was encouraged to more around during his stay as well to build strength back up. Patient stated he felt overall better and back to normal though still requiring 3L NC. Patient will be discharge home cefdinir 300 mg p.o. twice daily for 6 days, prednisone 20 mg daily for 6 days, trelegy ellipta inhaler, albuterol nebulizer, home oxygen. Encouraged to take all medications as prescribed, and follow-up with primary care provider in 3 to 7 days. If worsening in condition educated on returning to emergency department. Patient was given the opportunity ask questions and agreeable to be discharged home. Reason for Visit Reason for Visit: low o2 Hospital Course Hospital Course Sheng Bernstein is a 83 year old male with past medical history of BPH, PUD, hypertension, diabetes, CHF, A-fib on chronic anticoagulation presents to the emergency department on 02/22/2024 for chief complaint of shortness of breath. At time of his admission he reported that he was recently in the emergency department on 02/14/24 for the same chief complaint of shortness of breath. He had tested positive for influenza A at that time and was sent home with p.o. prednisone, a tapering dose, and Tamiflu. Reported a fever of 102.5 on Thursday night 02/17/24. He attempted to use his at home albuterol treatments to assist with his difficulty breathing also Tylenol, and ibuprofen intermittently for fever. He stated that these did not alleviate his symptoms. He came into the Emergency Department 02/22/24 because Mr. Bernstein had been monitoring his oxygen stat at home and noticed he was stating 76% this morning when he had trouble breathing. He reported nausea, chills, fever, dry heaving, weight loss of 5 pounds due to no appetite, and coughing up thick yellow/green sputum. He was requiring on 5 L nasal cannula on admission, denies wearing oxygen at home although has required this in the past. Patient was admitted to the medical surgical floor for treatment of influenza A, COPD with acute exacerbation, and possible community acquired pneumonia. While Mr. Bernstein was in the hospital we administered IV abx of Rocephin and azithromycin for possible community acquired pneumonia, steroids, douneb Q4HR, and supplemental oxygen. Mr. Bernstein was encouraged to more around during his stay as well to build strength back up. Patient stated he felt overall better and back to normal though still requiring 3L NC. Patient will be discharge home cefdinir 300 mg p.o. twice daily for 6 days, prednisone 40 mg daily for 3 days, trelegy ellipta inhaler, albuterol nebulizer, home oxygen. Encouraged to take all medications as prescribed, and follow-up with primary care provider in 3 to 7 days. If worsening in condition educated on returning to emergency department. Patient was given the opportunity ask questions and agreeable to be discharged home. Discharge Data Studies Completed and Pending Completed Studies During Hospitalization Category Date Time Status XR chest 1V portable [id number] Stat Exams 02/22/24 09:32 Completed Radiology Impressions Chest X-Ray 02/22/24 09:32 IMPRESSION: No acute cardiopulmonary disease. Laboratory Results WBC 13.13 10^3/uL (3.29-11.43) H 02/24/24 04:30 RBC 3.97 10^6/uL (3.85-5.65) 02/24/24 04:30 Hgb 11.10 g/dL (11.27-16.99) L 02/24/24 04:30 Hct 34.5 % (37-53) L 02/24/24 04:30 MCV 86.9 fl (82-101) 02/24/24 04:30 MCH 28.0 pg (27-33) 02/24/24 04:30 MCHC 32.2 g/dL (30-55) 02/24/24 04:30 RDW 15.9 % (12.1-15.1) H 02/24/24 04:30 Plt Count 425 10^3/cmm (157-399) H 02/24/24 04:30 MPV 9.4 fL (7.4-10.4) 02/24/24 04:30 Neut % (Auto) 81.7 % 02/24/24 04:30 Lymph % (Auto) 15.5 % 02/24/24 04:30 [place] % (Auto) 1.8 % 02/24/24 04:30 Eos % (Auto) 0.0 % 02/24/24 04:30 Baso % (Auto) 0.2 % 02/24/24 04:30 Neut # (Auto) 10.75 10^3/uL (1.8-7.7) H 02/24/24 04:30 Lymph # (Auto) 2.0 10^3/uL (0.8-4.8) 02/24/24 04:30 [place] # (Auto) 0.2 10^3/uL (0.2-0.9) 02/24/24 04:30 Eos # (Auto) 0.0 10^3/uL (0.0-0.8) 02/24/24 04:30 Baso # (Auto) 0.0 10^3/uL (0.0-0.1) 02/24/24 04:30 Nucleated RBC % (auto) 0 % 02/24/24 04:30 Nucleated RBCs # 0.0 /100WBC 02/24/24 04:30 Specimen Type Arterial 02/22/24 09:32 Sample Site Radial, right 02/22/24 09:32 ABG pH 7.48 (7.35-7.45) H 02/22/24 09:32 ABG pCO2 35.7 mmHg (35-45) 02/22/24 09:32 ABG pO2 61.3 mmHg (80.0-100.0) L 02/22/24 09:32 ABG HCO3 26.7 mmol/L (22-26) H 02/22/24 09:32 ABG O2 Saturation 93.6 02/22/24 09:32 ABG Base Excess 3.3 mmol/L (-2.0-2.0) H 02/22/24 09:32 [place] Test Pos 02/22/24 09:32 A-a O2 Gradient 5.4 mmHg (5-10) 02/22/24 09:32 Hematocrit 36.3 % (42-52) L 02/22/24 09:32 Hgb O2 Saturation 91.9 % (95-100) L 02/22/24 09:32 Carboxyhemoglobin 1.3 %THgb (0.4-20.1) 02/22/24 09:32 Methemoglobin 0.6 % (0.4-1.5) 02/22/24 09:32 Total Hemoglobin 11.9 g/dL (14-18) L 02/22/24 09:32 Sodium 137.0 mmol/L (131-143) 02/22/24 09:32 Potassium 3.8 mmol/L (3.5-5.0) 02/22/24 09:32 Glucose 277.0 mg/dL (70-115) H 02/22/24 09:32 Ionized Calcium 1.1 mmol/L (1.1-1.4) 02/22/24 09:32 O2 Delivery Device Nc 02/22/24 09:32 O2 Liters/Min 6.0 % 02/22/24 09:32 Coarse Wire Drawer ID [place] 02/22/24 09:32 Sodium 137 mmol/L (136-145) 02/24/24 04:30 Potassium 4.2 mmol/L (3.5-5.1) 02/24/24 04:30 Chloride 100 mmol/L (98-107) 02/24/24 04:30 Carbon Dioxide 25 mmol/L (22-29) 02/24/24 04:30 Anion Gap 16.2 (5-19) 02/24/24 04:30 BUN 47 mg/dL (8-23) H 02/24/24 04:30 Creatinine 1.3 mg/dL (0.7-1.2) H 02/24/24 04:30 GFR Calculation Not Reportable 02/24/24 04:30 Glucose 212 mg/dL (65-115) H 02/24/24 04:30 POC Glucose 140 mg/dL (70-110) H 02/25/24 06:21 Calculated Osmolality 303 mOsm/kg (285-295) H 02/24/24 04:30 Calcium 8.2 mg/dL (8.5-10.5) L 02/24/24 04:30 Magnesium 2.2 mg/dL (1.7-2.3) 02/23/24 05:15 Total Bilirubin 0.3 mg/dL (0.15-1.2) 02/23/24 05:15 AST 11 U/L (0-40) 02/23/24 05:15 ALT 24 U/L (0-41) 02/23/24 05:15 Alkaline Phosphatase 96 U/L (40-130) 02/23/24 05:15 Troponin T Baseline 29 ng/L (0-15) H 02/22/24 09:43 Troponin T 120 Minute 28.94 ng/L (0-15) H 02/22/24 11:38 Delta Troponin T -0.06 ABS# (0-10) L 02/22/24 11:38 Troponin T Hi Sens 6Hr 25.14 ng/L (0-15) H 02/22/24 15:52 Troponin T Hi Sens 6Hr Delta -3.86 ng/L (0-12) L 02/22/24 15:52 NT-Pro-B Natriuret Pep 1008 pg/mL (0-450) H 02/22/24 09:43 Total Protein 7.2 g/dL (6.6-8.7) 02/23/24 05:15 Albumin 3.2 g/dL (3.5-5.2) L 02/23/24 05:15 Globulin 4.0 g/dL (1.3-4.6) 02/23/24 05:15 Procalcitonin 0.14 ng/mL (0-0.5) 02/22/24 09:43 TSH 0.32 uIU/mL (0.27-4.20) 02/23/24 05:15 Urine Color Light yellow (Yellow) 02/22/24 10:04 Urine Appearance Clear (CLEAR) 02/22/24 10:04 Urine pH 6 (5-7) 02/22/24 10:04 Ur Specific [place] 1.010 (1.005-1.030) 02/22/24 10:04 Urine Protein Neg (Negative) 02/22/24 10:04 Urine Glucose (UA) Trace (Normal) H 02/22/24 10:04 Urine Ketones Negative (Negative) 02/22/24 10:04 Urine Blood Neg (Negative) 02/22/24 10:04 Urine Nitrate Negative (Negative) 02/22/24 10:04 Urine Bilirubin Neg (Negative) 02/22/24 10:04 Urine Urobilinogen Norm mg/dL (Negative) 02/22/24 10:04 Ur Leukocyte Esterase Negative (Negative) 02/22/24 10:04 Coronavirus 229E (PCR) Not detected (NOT DETECT) 02/22/24 09:48 Influenza A (H1) PCR Not detected (NOT DETECT) 02/22/24 11:51 Influ A (H1/09) PCR Not detected (NOT DETECT) 02/22/24 11:51 Influenza A (H3) PCR Detected (NOT DETECT) A 02/22/24 11:51 Influenza Type A Ag Cancelled 02/22/24 09:48 Influenza Type A (PCR) Not detected (NOT DETECT) 02/22/24 11:51 Influenza Type B Ag Cancelled 02/22/24 09:48 Influenza Type B (PCR) Not detected (NOT DETECT) 02/22/24 11:51 SARS-CoV-2 (PCR) Not detected (NOT DETECT) 02/22/24 09:48 Vitals Last Vital Signs Temp 98.3 F 02/25/24 07:51 Pulse 70 02/25/24 09:15 Resp 20 H 02/25/24 09:15 BP 141/46 02/25/24 07:51 Pulse Ox 92 02/25/24 09:15 O2 Del Method Nasal Cannula 02/25/24 09:15 O2 Flow Rate 3 02/25/24 09:15 Discharge Plan Discharge Patient Disposition: Home Condition: Stable Prescriptions: New prednisone 20 mg Tablet 40 mg PO DAILY Qty: 6 0RF cefdinir 300 mg capsule 300 mg PO BID Qty: 12 0RF Trelegy Ellipta 200-62.5-25 mcg blister with device 1 inh inhalation DAILY Qty: 60 0RF albuterol sulfate 1.25 mg/3 mL solution for nebulization 2.5 mg inhalation Q6H PRN (Reason: shortness of breath or wheezing) Qty: 90 0RF Continued losartan 50 mg tablet 50 mg PO DAILY@0700 terazosin 5 mg capsule 5 mg PO BEDTIME nitroglycerin [Nitrostat] 0.4 mg tablet, sublingual 0.4 mg SUBLINGUAL Q5M PRN (Reason: Chest Pain) amlodipine 10 mg tablet 10 mg PO DAILY@0730 furosemide 40 mg tablet 40 mg PO DAILY@0730 propafenone 150 mg tablet 150 mg PO TID Qty: 270 3RF potassium chloride 10 mEq capsule, extended release 10 meq PO DAILY@0730 diphenhydramine-acetaminophen [Tylenol PM Extra Strength] 25-500 mg Tablet 2 tab PO BEDTIME PRN (Reason: Sleep) levothyroxine [Euthyrox] 175 mcg tablet 175 mcg PO BEDTIME albuterol sulfate 90 mcg/actuation Hfa Aerosol Inhaler 1 puff INHALATION QID PRN (Reason: Shortness Of Breath) 30 Days Qty: 8.5 0RF ondansetron 8 mg tablet,disintegrating 8 mg PO .q6 PRN (Reason: nausea and vomiting) Qty: 14 0RF Xarelto 20 mg tablet 20 mg PO QAM Discontinued prednisone 20 mg tablet 60 mg PO DAILY Qty: 20 0RF Rx Instructions: 3 tabs (60 mg) x 3 days. 2 tabs (40 mg) x 3 days. 1 tab (20 mg) x 3 days. 1/2 tab (10 mg) x 4 days Discharge Orders: Discharge Order (Routine); Ordered 02/25/24 Ordered By: Hayden Rosado Other Ambulatory Orders: DME: Nebulizer with Neb Kit (Order) Location: None Selected Ordered By: Hayden Rosado Referrals: Avtar Ngo DO [Primary Care Provider] - 02/29/24 11:20 am Discharge Diet: Usual diet and Regular Discharge Activity: Increase activity as tolerated Patient Instructions: Influenza (DC), COPD (Chronic Obstructive Pulmonary Disease) (DC), Opioid Safety Activity Restrictions/Additional Instructions: Take all medicine as prescribed Return for any worsening Follow-up with your primary care provider 4 to 7 days Coding Level of Care Code 41172 Diagnoses Acute hypoxemic respiratory failure J96.01 COPD with acute exacerbation J44.1 Community acquired pneumonia J18.9 Laterality: right Lung location: lower lobe of lung Influenza 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 Documented by User: Hayden Rosado MD 02/25/24 10:14 Diagnoses at Discharge Discharge Diagnosis (1) Acute hypoxemic respiratory failure: Status: Acute (2) COPD with acute exacerbation: Status: Acute (3) Community acquired pneumonia: Status: Acute Qualifiers: Laterality: right Lung location: lower lobe of lung Qualified Code(s): J18.9 - Pneumonia, unspecified organism (4) Influenza: Status: Acute (5) Diabetes 1.5, managed as type 2: Status: Acute (6) CHF (congestive heart failure): Status: Acute Qualifiers: Heart failure chronicity: unspecified Heart failure type: unspecified Qualified Code(s): I50.9 - Heart failure, unspecified (7) Atrial fibrillation: Status: Acute Qualifiers: Atrial fibrillation type: longstanding persistent Qualified Code(s): I48.11 - Longstanding persistent atrial fibrillation Reason for Visit Reason for Visit: low o2 Hospital Course Hospital Course Sheng Bernstein is a 83 year old male with past medical history of BPH, PUD, hypertension, diabetes, CHF, A-fib on chronic anticoagulation presents to the emergency department on 02/22/2024 for chief complaint of shortness of breath. At time of his admission he reported that he was recently in the emergency department on 02/14/24 for the same chief complaint of shortness of breath. He had tested positive for influenza A at that time and was sent home with p.o. prednisone, a tapering dose, and Tamiflu. Reported a fever of 102.5 on Thursday night 02/17/24. He attempted to use his at home albuterol treatments to assist with his difficulty breathing also Tylenol, and ibuprofen intermittently for fever. He stated that these did not alleviate his symptoms. He came into the Emergency Department 02/22/24 because Mr. Bernstein had been monitoring his oxygen stat at home and noticed he was stating 76% this morning when he had trouble breathing. He reported nausea, chills, fever, dry heaving, weight loss of 5 pounds due to no appetite, and coughing up thick yellow/green sputum. He was requiring on 5 L nasal cannula on admission, denies wearing oxygen at home although has required this in the past. Patient was admitted to the medical surgical floor for treatment of influenza A, COPD with acute exacerbation, and possible community acquired pneumonia. While Mr. Bernstein was in the hospital we administered IV abx of Rocephin and azithromycin for possible community acquired pneumonia, steroids, douneb Q4HR, and supplemental oxygen. Mr. Bernstein was encouraged to more around during his stay as well to build strength back up. Patient stated he felt overall better and back to normal though still requiring 3L NC. Patient will be discharge home cefdinir 300 mg p.o. twice daily for 6 days, prednisone 40 mg daily for 3 days, trelegy ellipta inhaler, albuterol nebulizer, home oxygen. Encouraged to take all medications as prescribed, and follow-up with primary care provider in 3 to 7 days. If worsening in condition educated on returning to emergency department. Patient was given the opportunity ask questions and agreeable to be discharged home. Physical Exam Narrative: General exam no distress Neck is supple Cardiovascular regular rate and rhythm Lungs clear but with diminished breath sounds at the bases Abdomen is soft Extremities no cyanosis clubbing or edema Discharge Plan Discharge Patient Disposition: Home Condition: Stable Prescriptions: New prednisone 20 mg Tablet 40 mg PO DAILY Qty: 6 0RF cefdinir 300 mg capsule 300 mg PO BID Qty: 12 0RF Trelegy Ellipta 200-62.5-25 mcg blister with device 1 inh inhalation DAILY Qty: 60 0RF albuterol sulfate 1.25 mg/3 mL solution for nebulization 2.5 mg inhalation Q6H PRN (Reason: shortness of breath or wheezing) Qty: 90 0RF Continued losartan 50 mg tablet 50 mg PO DAILY@0700 terazosin 5 mg capsule 5 mg PO BEDTIME nitroglycerin [Nitrostat] 0.4 mg tablet, sublingual 0.4 mg SUBLINGUAL Q5M PRN (Reason: Chest Pain) amlodipine 10 mg tablet 10 mg PO DAILY@0730 furosemide 40 mg tablet 40 mg PO DAILY@0730 propafenone 150 mg tablet 150 mg PO TID Qty: 270 3RF potassium chloride 10 mEq capsule, extended release 10 meq PO DAILY@0730 diphenhydramine-acetaminophen [Tylenol PM Extra Strength] 25-500 mg Tablet 2 tab PO BEDTIME PRN (Reason: Sleep) levothyroxine [Euthyrox] 175 mcg tablet 175 mcg PO BEDTIME albuterol sulfate 90 mcg/actuation Hfa Aerosol Inhaler 1 puff INHALATION QID PRN (Reason: Shortness Of Breath) 30 Days Qty: 8.5 0RF ondansetron 8 mg tablet,disintegrating 8 mg PO .q6 PRN (Reason: nausea and vomiting) Qty: 14 0RF Xarelto 20 mg tablet 20 mg PO QAM Discontinued prednisone 20 mg tablet 60 mg PO DAILY Qty: 20 0RF Rx Instructions: 3 tabs (60 mg) x 3 days. 2 tabs (40 mg) x 3 days. 1 tab (20 mg) x 3 days. 1/2 tab (10 mg) x 4 days Discharge Orders: Discharge Order (Routine); Ordered 02/25/24 Ordered By: Hayden Rosado Other Ambulatory Orders: DME: Nebulizer with Neb Kit (Order) Location: None Selected Ordered By: Hayden Rosado Referrals: Avtar Ngo DO [Primary Care Provider] - 02/29/24 11:20 am Discharge Diet: Usual diet and Regular Discharge Activity: Increase activity as tolerated Patient Instructions: Influenza (DC), COPD (Chronic Obstructive Pulmonary Disea se) (DC), Opioid Safety Activity Restrictions/Additional Instructions: Take all medicine as prescribed Return for any worsening Follow-up with your primary care provider 4 to 7 days Discharge Attestations Time Spent in Discharge Care*: greater than 30 min Quality Metrics Clinical Quality Measures [ No reported AMI, CVA or VTE this stay] Coding Level of Care Code 16771 Total time (in minutes) for Discharge: 31 Diagnoses Acute hypoxemic respiratory failure J96.01 COPD with acute exacerbation J44.1 Community acquired pneumonia J18.9 Laterality: right Lung location: lower lobe of lung Influenza 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
[2024-02-25] MEDS: predniSONE 20 mg Tablet 40 MG PO (09:51)
[2024-02-25] MEDS: propafenone 150 mg Tablet PO (09:51)
[2024-02-25] MEDS: pantoprazole DR 40 mg Tablet PO (09:51)
== END 2024-02-25 11:55 | disposition home or self-care (01) | DRG 190 ==
LOC: ER 10:47 → MEDSURG 11:58
PROVIDERS: Admitting Provider Internal Medicine; Emergency Provider Family Medicine; PCP Internal Medicine; Visit Provider Internal Medicine
DX: J44.0 Chronic obstructive pulmonary disease with (acute) lower respiratory infection (principal); J18.9 Pneumonia, unspecified organism; J96.01 Acute respiratory failure with hypoxia; I48.20 Chronic atrial fibrillation, unspecified; N17.9 Acute kidney failure, unspecified; J44.1 Chronic obstructive pulmonary disease with (acute) exacerbation; J10.1 Influenza due to other identified influenza virus with other respiratory manifestations; I11.0 Hypertensive heart disease with heart failure; I50.9 Heart failure, unspecified; Z79.01 Long term (current) use of anticoagulants; N40.0 Benign prostatic hyperplasia without lower urinary tract symptoms; E03.9 Hypothyroidism, unspecified; K27.9 Peptic ulcer, site unspecified, unspecified as acute or chronic, without hemorrhage or perforation; Z87.891 Personal history of nicotine dependence; E13.9 Other specified diabetes mellitus without complications
CPT/HCPCS: 36415; 36416; 36600; 71045; 80048; 80051; 80053; 81003; 82330; 82805; 82962; 83735; 83880; 84145; 84443; 84484; 85025; 87070; 87205; 87631; 87635; 93005; 94640; 94760; 96372; 96374; 96375; 99285; J0456; J0696; J1815; J1940; J1956; J2930; J7050; J7512; J7626

== ENCOUNTER → 2024-09-06 12:44 | Outpatient (BNVA) | payer MEDICARE, SELFPAY | PROVIDERS: PCP Internal Medicine; Visit Provider Internal Medicine | DX: I11.0 Hypertensive heart disease with heart failure (principal); I50.9 Heart failure, unspecified; I48.11 Longstanding persistent atrial fibrillation; Z79.01 Long term (current) use of anticoagulants; E13.9 Other specified diabetes mellitus without complications; E78.5 Hyperlipidemia, unspecified; Z87.891 Personal history of nicotine dependence | CPT/HCPCS: 99214 ==

== ENCOUNTER → 2025-06-06 13:51 | Outpatient (BNVA) | payer MEDICARE, SELFPAY | PROVIDERS: PCP Internal Medicine; Visit Provider Internal Medicine | DX: I11.0 Hypertensive heart disease with heart failure (principal); I50.9 Heart failure, unspecified | CPT/HCPCS: 99214 ==

== ENCOUNTER 2025-06-23 06:38 | Outpatient (CLI) | payer MEDICARE, SELFPAY ==
--- NOTE | 2025-06-23 | ECG_ITS ---
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 Baseline heart rate was 76 beats per minute. Baseline blood pressure was 109/89 millimeters of mercury. Target heart rate was 137 beats per minute. Maximum heart rate achieved was 119, which was 86% of the target heart rate. Maximum blood pressure was 190/95 millimeters of mercury. Total exercise time was 6 minutes 1 second. Maximum METs achieved was 7.0, maximum VO2 was 24.5. The reason for ending the test was maximum effort achieved. The patient complained of shortness of breath during the stress test, which then resolved at the end of the test. 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 RECOVERY: During the recovery period, heart rate dropped appropriately. No significant ST-T changes in the recovery suggestive of ischemia noted. CONCLUSION: 1. Exercise capacity good. 2. Heart rate response was appropriate. 3. Blood pressure response was hypertensive. 4. Symptoms not suggestive of ischemia. 5. Electrocardiogram portion of the stress test was not suggestive of ischemia. 6. Nuclear scan will be documented separately. Electronically Signed On 07-05-2025 18:37:39 CDT by JAVIER OSEI [email or web address]
[2025-06-23 06:55] VITALS: BMI 26.6
--- NOTE | 2025-06-23 07:02 | NMCV_ITS ---
NM glo perf SPECT r/s* [id number] Sheng Bernstein Age: 85 Gender: M : 1940 Exam Date: 06/23/2025 07:43 Ordering Phys: Tung Hutchinson M.D ([email or web address]) Technologist: EMMY Torres Exam Location: [facility] Indications: cp STRESS TEST Please see separate stress test report in [facility] for full findings IMAGE PROTOCOL Rest/Stress 1 Exercise Day Radiopharmaceutical Dose (mCi) Administration Site Administered by Rest: Tc-99m 10.9 IV EMMY Torres Sestamibi Stress:Tc-99m 32.6 IV EMMY Torres Sestamibi Rest: 23-Jun-2025 60 Discovery 630 Stress: 23-Jun-2025 30 Discovery 630 Radiopharmaceutical was injected at 86 % maximum heart rate. Images obtained in supine and prone position. SPECT RESULTS Technical Quality: Good Raw Data Analysis: Normal Image Corrections: No attenuation or motion correction applied Summed Stress Score: 1 Summed Rest Score: 8 Summed Difference Score: 0 PERFUSION FINDINGS Medium sized area of fixed perfusion defect noted in basal to mid inferior wall in the absence of wall motion when neurology could be an artifact. Small area of moderate reversibility noted in apical region of the apex which could be due to thinning artifact. Otherwise no other significant reversibility noted. FUNCTIONAL RESULTS (calculated via Gated SPECT) Stress Image LV EF (%): 56 Stress EDV (mL):140 TID: 0.69 Stress ESV (mL):62 FUNCTIONAL FINDINGS: There is normal left ventricular systolic function. IMPRESSIONS This study is negative for ischemia. EKG segment will be documented separately. Sarah Farrar MD (Electronically Signed) Final Date: 24 June 2025 13:11 S
[2025-06-23 08:32] VITALS: BP 136/70; PULSE 81
== END 2025-06-23 06:39 | disposition home or self-care (01) ==
PROVIDERS: PCP Orthopaedic Surgery; Visit Provider Internal Medicine
DX: R07.9 Chest pain, unspecified (principal); R06.02 Shortness of breath; R93.1 Abnormal findings on diagnostic imaging of heart and coronary circulation
CPT/HCPCS: 36415; 78452; 93017; A9500